=== PATIENT | male | born 1940 | race Caucasian/White ===

== ENCOUNTER 2023-05-14 14:28 | Outpatient (OUT) | payer MEDICARE, SELFPAY | END 2023-05-14 14:29 | disposition home or self-care (01) | LOC: WC 14:28 | PROVIDERS: PCP Physician Assistant; Visit Provider Physician Assistant | DX: L97.822 Non-pressure chronic ulcer of other part of left lower leg with fat layer exposed (principal); L97.812 Non-pressure chronic ulcer of other part of right lower leg with fat layer exposed; R60.0 Localized edema; R25.1 Tremor, unspecified; D64.9 Anemia, unspecified; I70.244 Atherosclerosis of native arteries of left leg with ulceration of heel and midfoot; I70.243 Atherosclerosis of native arteries of left leg with ulceration of ankle; Z99.81 Dependence on supplemental oxygen; F33.0 Major depressive disorder, recurrent, mild; E11.40 Type 2 diabetes mellitus with diabetic neuropathy, unspecified; E11.51 Type 2 diabetes mellitus with diabetic peripheral angiopathy without gangrene; I82.409 Acute embolism and thrombosis of unspecified deep veins of unspecified lower extremity; M21.40 Flat foot [pes planus] (acquired), unspecified foot; I51.9 Heart disease, unspecified; K46.9 Unspecified abdominal hernia without obstruction or gangrene; R32 Unspecified urinary incontinence; Z79.4 Long term (current) use of insulin; E46 Unspecified protein-calorie malnutrition; M86.68 Other chronic osteomyelitis, other site; I73.9 Peripheral vascular disease, unspecified; E11.42 Type 2 diabetes mellitus with diabetic polyneuropathy; N40.0 Benign prostatic hyperplasia without lower urinary tract symptoms; G25.81 Restless legs syndrome; G47.34 Idiopathic sleep related nonobstructive alveolar hypoventilation; L97.919 Non-pressure chronic ulcer of unspecified part of right lower leg with unspecified severity; I87.2 Venous insufficiency (chronic) (peripheral) | CPT/HCPCS: 29580 ==

== ENCOUNTER 2023-06-11 12:51 | Outpatient (OUT) | payer MEDICARE, SELFPAY | END 2023-06-11 12:52 | disposition home or self-care (01) | LOC: WC 12:51 | PROVIDERS: PCP Physician Assistant; Visit Provider Podiatrist Foot & Ankle Surgery | DX: L97.822 Non-pressure chronic ulcer of other part of left lower leg with fat layer exposed (principal); L97.812 Non-pressure chronic ulcer of other part of right lower leg with fat layer exposed | CPT/HCPCS: 29580 ==

== ENCOUNTER 2023-07-10 10:48 | Outpatient (OUT) | payer MEDICARE, SELFPAY | END 2023-07-10 10:49 | disposition home or self-care (01) | LOC: WC 10:48 | PROVIDERS: PCP Physician Assistant; Visit Provider Podiatrist Foot & Ankle Surgery | DX: L97.812 Non-pressure chronic ulcer of other part of right lower leg with fat layer exposed (principal); L97.822 Non-pressure chronic ulcer of other part of left lower leg with fat layer exposed; E11.40 Type 2 diabetes mellitus with diabetic neuropathy, unspecified; E11.51 Type 2 diabetes mellitus with diabetic peripheral angiopathy without gangrene; I82.409 Acute embolism and thrombosis of unspecified deep veins of unspecified lower extremity; I70.244 Atherosclerosis of native arteries of left leg with ulceration of heel and midfoot; I70.243 Atherosclerosis of native arteries of left leg with ulceration of ankle | CPT/HCPCS: 11042; 11045; 29580 ==

== ENCOUNTER 2023-07-30 13:40 | Outpatient (OUT) | payer MEDICARE, SELFPAY | END 2023-07-30 13:41 | disposition home or self-care (01) | LOC: WC 13:41 | PROVIDERS: PCP Physician Assistant; Visit Provider Physician Assistant | DX: L89.141 Pressure ulcer of left lower back, stage 1 (principal) | CPT/HCPCS: G0463 ==

== ENCOUNTER 2023-08-27 15:23 | Outpatient (OUT) | payer MEDICARE, SELFPAY | END 2023-08-27 15:24 | disposition home or self-care (01) | LOC: WC 15:24 | PROVIDERS: PCP Physician Assistant; Visit Provider Physician Assistant | DX: L97.822 Non-pressure chronic ulcer of other part of left lower leg with fat layer exposed (principal); L97.812 Non-pressure chronic ulcer of other part of right lower leg with fat layer exposed | CPT/HCPCS: 29580 ==

== ENCOUNTER 2023-10-01 15:09 | Outpatient (OUT) | payer MEDICARE, SELFPAY | END 2023-10-01 15:10 | disposition home or self-care (01) | LOC: WC 15:09 | PROVIDERS: PCP Physician Assistant; Visit Provider Podiatrist Foot & Ankle Surgery | DX: L97.822 Non-pressure chronic ulcer of other part of left lower leg with fat layer exposed (principal); L97.812 Non-pressure chronic ulcer of other part of right lower leg with fat layer exposed | CPT/HCPCS: 29580 ==

== ENCOUNTER 2023-11-06 13:28 | Outpatient (OUT) | payer MEDICARE, SELFPAY | END 2023-11-06 13:29 | disposition home or self-care (01) | LOC: WC 13:28 | PROVIDERS: PCP Physician Assistant; Visit Provider Physician Assistant | DX: L97.822 Non-pressure chronic ulcer of other part of left lower leg with fat layer exposed (principal); L97.812 Non-pressure chronic ulcer of other part of right lower leg with fat layer exposed | CPT/HCPCS: 29580 ==

== ENCOUNTER 2023-12-31 15:26 | Outpatient (OUT) | payer MEDICARE, SELFPAY | END 2023-12-31 15:27 | disposition home or self-care (01) | LOC: WC 15:26 | PROVIDERS: PCP Physician Assistant; Visit Provider Physician Assistant | DX: L97.812 Non-pressure chronic ulcer of other part of right lower leg with fat layer exposed (principal); L97.822 Non-pressure chronic ulcer of other part of left lower leg with fat layer exposed | CPT/HCPCS: 11042; 29580 ==

== ENCOUNTER 2024-01-28 13:18 | Outpatient (OUT) | payer MEDICARE, SELFPAY | END 2024-01-28 13:19 | disposition home or self-care (01) | LOC: WC 13:18 | PROVIDERS: PCP Physician Assistant; Visit Provider Physician Assistant | DX: L97.822 Non-pressure chronic ulcer of other part of left lower leg with fat layer exposed (principal); L97.812 Non-pressure chronic ulcer of other part of right lower leg with fat layer exposed; R60.0 Localized edema | CPT/HCPCS: 29580 ==

== ENCOUNTER 2024-03-17 15:46 | Outpatient (OUT) | payer MEDICARE, SELFPAY | END 2024-03-17 15:47 | disposition home or self-care (01) | LOC: WC 15:46 | PROVIDERS: PCP Physician Assistant; Visit Provider Physician Assistant | DX: L97.822 Non-pressure chronic ulcer of other part of left lower leg with fat layer exposed (principal); L97.812 Non-pressure chronic ulcer of other part of right lower leg with fat layer exposed | CPT/HCPCS: 29580 ==

== ENCOUNTER 2024-06-02 15:13 | Outpatient (OUT) | payer MEDICARE, SELFPAY | END 2024-06-02 15:14 | disposition home or self-care (01) | LOC: WC 15:13 | PROVIDERS: PCP Physician Assistant; Visit Provider Physician Assistant | DX: L97.822 Non-pressure chronic ulcer of other part of left lower leg with fat layer exposed (principal); L97.812 Non-pressure chronic ulcer of other part of right lower leg with fat layer exposed | CPT/HCPCS: 29580 ==

== ENCOUNTER 2025-04-22 13:39 | Observation (INO) | payer MEDICARE, SELFPAY ==
--- OUTSIDE RECORDS SUMMARY | 2012-03-28 12:00 | XMS_ITS | Encounter Summary ---
Author Organization [facility] Address [address] [place] [address] Care Team Providers Care Buffing Machine Tender Name Role Phone Unavailable Primary Care Provider Unavailabl e Encounter Details Date Type Department Care Team (Late st Contact Info) Description 03/28/2012 12:00 PM EDT Hospital Encounter [facility] Department [address] [place] [address] Canelo Esquivel MD [address] [place], [place] [id number] Social History Tobacco Use Types Packs/Day Years Used Date Smoking Tobacco: Never Alcohol Use Standard Drinks/Week Comments No 0 (1 standard drink = 0.6 oz pur e alcohol) Sex and Gender Information Value Date Recorded Sex Assigned at Not on file Legal Sex Male 9:38 AM EST Gender Identity Not on file Sexual Orientation Not on file COVID-19 Exposure Response Date Recorded In the last month, have you been in contact with someone who was confirmed or suspected to have Coronavirus / COVID-19? No / Unsure 06/23/2021 11:17 PM EDT documented as of this encounter Plan of Treatment Not on file documented as of this encounter Visit Diagnoses Not on filedocumented in this encounter
--- OUTSIDE RECORDS SUMMARY | 2015-07-06 13:09 | XMS_ITS | Encounter Summary ---
Author Organization [facility] Address [address] [place] [address] Care Team Providers Care Business Asst Name Role Phone Oxana Martinez MD Primary Care Provider [phone] Encounter Details Date Type Department Care Team (Late st Contact Info) Description 07/06/2015 1:09 PM EDT Hospital Encounter [facility] [address] [place], [place] [id number] Panda Rooney MD [facility] [address] [address] Social History Tobacco Use Types Packs/Day Years [...] on file documented as of this encounter Procedures Procedure Name Priority Date/Time Associated Diagnosis Comments VL TCPO2 MULTIPLE SITES Routine 07/06/2015 3:45 PM EDT VL LOWER EXTREMITY ARTERIAL SEGMENTAL PRESSURES W PPG Routine 07/06/2015 2:22 PM EDT documented in this encounter Results * VL TCPO2 Multiple Sites (07/06/2015 3:45 PM EDT) Anatomical Region Laterality Modality Other 07/06/2015 3:45 PM EDT Narrative 07/08/2015 11:40 AM EDT [facility] TCPO2 Multiple Sites Procedure Patient Name RILEY MCKINNEY Date of Study 07/06/2015 Date of 1940 Gender Male Age 74 year(s) Race Room Number OP Corporate ID # [id number] Patient MR # [id number] Forestry Pilot Tom Mcfarland Interpreting Physician Tyler Brandon Referring Nurse Referring Physician PANDA ROONEY, Practitioner Procedure Type of Study: Miscellaneous: TCPO2 Multiple Sites. Risk Factors - The patient's risk factor(s) include: diabetes mellitus, dyslipidemia and arterial hypertension. Allergies - Allergy:Latex(Miscellaneous). - Allergy:Contrast(Miscellaneous). - Allergy:*Unlisted(Drug). Comments:Keflex, Daypro, Decadron, Polymox Patient Status:In Patient. Miscellaneous Right Measurements Electrode A: 59 mmHg placed at chest . Electrode B: 87 mmHg placed at top of right foot . Electrode C: 53 mmHg placed at rt medial malleolus area . Electrode D: 33 mmHg placed at medial lower right leg . Left Measurements Electrode E: 55 mmHg placed at top of the left foot . Electrode F: 68 mmHg placed at near medial malleolus . Conclusions Summary All measurements show adequate tissue perfusion for healing. Signature Procedure Note Tyler Brandon MD - 07/08/2015 [facility] TCPO2 Multiple Sites Procedure Patient Name RILEY MCKINNEY Date of Study 07/06/2015 Date of 1940 Gender Male Age 74 year(s) Race Room Number OP Corporate ID # [id number] Patient MR # [id number] Forestry Pilot Brian Interpreting Physician Tyler Brandon Referring Nurse Referring Physician PANDA SHEFFIELD, Practitioner Procedure Type of Study: Miscellaneous: TCPO2 Multiple Sites. Risk Factors - The patient's risk factor(s) include: diabetes mellitus,dyslipidemia and arterial hypertension. Allergies - Allergy:Latex(Miscellaneous). - Allergy:Contrast(Miscellaneous). - Allergy:*Unlisted(Drug). Comments:Keflex, Daypro, Decadron, Polymox Patient Status:In Patient. Miscellaneous Right Measurements Electrode A: 59 mmHg placed at chest . Electrode B: 87 mmHg placed at top of right foot . Electrode C: 53 mmHg placed at rt medial malleolus area . Electrode D: 33 mmHg placed at medial lower right leg . Left Measurements Electrode E: 55 mmHg placed at top of the left foot . Electrode F: 68 mmHg placed at near medial malleolus . Conclusions Summary All measurements show adequate tissue perfusion for healing. Signature us Panda Rooney MD IMG VASCULAR ORDERABLES Sarah l Result * VL Arterial PVR Lower w PPG (07/06/2015 2:22 PM EDT) Anatomical Region Laterality Modality Vascular Other 07/06/2015 2:22 PM EDT Narrative 07/07/2015 10:37 AM EDT [facility] Lower Arterial Plethysmography Procedure Patient Name RILEY MCKINNEY Date of Study 07/06/2015 Date of 1940 Gender Male Age 74 year(s) Race Room Number OP Corporate ID # [id number] Patient MR # [id number] [employer] Pilot Tom Mcfarland Interpreting Physician Tyler Brandon Referring Nurse Referring Physician Toribio Ferreira Practitioner Procedure Type of Study: Extremities Arteries: Lower Arterial Plethysmography, PVR Lower with PPG. Indications for Study:Venous ulcer. Risk Factors - The patient's risk factor(s) include: diabetes mellitus, dyslipidemia and arterial hypertension. Allergies - Allergy:Latex(Miscellaneous). - Allergy:Contrast(Miscellaneous). - Allergy:*Unlisted(Drug). Comments:Keflex, Daypro, Decadron, Polymox Patient Status:Out Patient. Velocities are measured in cm/s ; Diameters are measured in mm Pressures Right Left + + + + + + + + !Location ! !Pressure !Ratio ! !Pressure !Ratio ! + + + + + + + + !Thigh ! !197 !1.36 ! !220 !1.52 ! + + + + + + + + !Calf ! !201 !1.39 ! !254 !1.75 ! + + + + + + + + !Ankle PT ! !254 !175 ! !254 !1.75 ! + + + + + + + + !Ankle DP ! !199 !1.37 ! !254 !1.75 ! + + + + + + + + !Great Toe ! !208 !1.43 ! !216 !1.49 ! + + + + + + + + - Brachial Pressure:Right: 145 mmHg - NISSA:Right: 1.75.Left: 1.75. Plethysmographic Digit Evaluation Right Left + + +--------+-----+ + +--------+-----+ + !Location ! !Pressure!Ratio!PPG Wave Form ! !Pressure!Ratio!PPG Wave Form ! + + +--------+-----+ + +--------+-----+ + !Great Toe ! !208 !1.43 ! ! !216 !1.49 ! ! 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 Normal arterial PPG waveforms of the bilateral digits. Signature Procedure Note Tyler Brandon MD - 07/07/2015 [facility] Lower Arterial Plethysmography Procedure Patient Name RILEY MCKINNEY Date of Study 07/06/2015 Date of 1940 Gender Male Age 74 year(s) Race Room Number OP Corporate ID # [id number] Patient MR # [id number] Forestry Pilot MiriamIssacAbelardoKielvee Interpreting Physician Tyler Brandon Referring Nurse Referring Physician Toribio Ferreira Practitioner Procedure Type of Study: Extremities Arteries: Lower Arterial Plethysmography, PVR Lower withPPG. Indications for Study:Venous ulcer. Risk Factors - The patient's risk factor(s) include: diabetes mellitus,dyslipidemia and arterial hypertension. Allergies - Allergy:Latex(Miscellaneous). - Allergy:Contrast(Miscellaneous). - Allergy:*Unlisted(Drug). Comments:Keflex, Daypro, Decadron, Polymox Patient Status:Out Patient. Velocities are measured in cm/s ; Diameters are measured in mm Pressures Right Left + + + + + + + + !Location !!Pressure !Ratio ! !Pressure!Ratio ! + + + + + + + + !Thigh ! !197 !1.36 ! !220 !1.52 ! + + + + + + + + !Calf ! !201 !1.39 ! !254 !1.75 ! + + + + + + + + !Ankle PT ! !254 !1.75 ! !254 !1.75 ! + + + + + + + + !Ankle DP ! !199 !1.37 ! !254 !1.75 ! + + + + + + + + !Great Toe ! !208 !1.43 ! !216 !1.49 ! + + + + + + + + - Brachial Pressure:Right: 145 mmHg - NISSA:Right: 1.75.Left: 1.75. Plethysmographic Digit Evaluation Right Left + + +--------+-----+ + +--------+-----+ + !Location !!Pressure!Ratio!PPG Wave Form ! !Pressure!Ratio!PPG Wave Form ! + + +--------+-----+ + +--------+-----+ + !Great Toe ! !208!1.43 ! ! !216 !1.49 ! ! 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 Normal arterial PPG waveforms of the bilateral digits. Signature us Panda Rooney MD IMG VASCULAR ORDERABLES Sarah reddy Result documented in this encounter Visit Diagnoses Not on filedocumented in this encounter Care Teams Business Asst Relationship Specialty Start Date End Date Wonderly, Oxana Ge MD PCP - General 10/22/14 documented as of this encounter
--- OUTSIDE RECORDS SUMMARY | 2025-04-19 15:19 | XMS_ITS | Encounter Summary ---
Author Organization [employer] tem Address [id number] [address] [place] [address] Care Team Providers Care Scientific Technical Writer Name Role Phone Carla Gaines [facility] Family Medicine Primary Care Provider Reason for Visit * Reason Comments Shortness of Breath Pt sent in by family for increasing SOB over the past 3 days. Pt usually on 2l/nc now on 4l. Encounter Details Date Type Department Care Team (Late st Contact Info) Description 04/19/2025 3:19 PM EDT - 04/19/2025 7:01 PM EDT Emergency [facility] - Emergency [address] [place] [id number] Isaías Ireland MD [address] [facility] [address] [place] [address] Prolonged Q-T interval on ECG (Primary Dx); Dyspnea, unspecified type Discharge Disposition: Home Social History Tobacco Use Types Packs/Day Years Used Date Smoking Tobacco: Never Smokeless Tobacco: Never Alcohol Use Standard Drinks/Week Comments No 0 (1 standard drink = 0.6 oz pur e alcohol) PHQ-2 Answer Date Recorded Total Score 0 12/16/2020 Housing Instability Answer Date Recorde d Are you worried or concerned that in the next two months you may not have stable housing that you own, rent or stay in as a part of a household? No 02/21/2023 Childcare Answer Date Recorded Do problems getting child ca re make it difficult for you to work or study? No 12/16/2020 Employment Answer Date Recorded Do you need help finding a [facility] career center and/or a training program? No 12/16/2020 Hunger Screening Answer Date Recorded Within the past 12 months we worried whether our food would run out before we got money to buy more. Never True 04/19/2025 Within the past 12 months th e food we bought just didn't last and we didn't have money to get more. Never True 04/19/2025 Purpose - Life Answer Date Recorded I have a purpose and direction in my life. Stron gly Agree 12/16/2020 Sex and Gender Information Value Date Recorded Sex Assigned at Not on file Legal Sex Male 11:21 AM EDT Gender Identity Not on file Sexual Orientation Not on file documented as of this encounter Last Filed Vital Signs Vital Sign Reading Time Taken Comments Blood Pressure 115/78 04/19/2025 3:55 PM EDT Pulse 96 04/19/2025 6:40 PM EDT Temperature 36.7 C (98.1 F) 04/19/2025 3:22 PM EDT Respiratory Rate 17 04/19/2025 6:40 PM EDT Oxygen Saturation 98% 04/19/2025 6:40 PM EDT Inhaled Oxygen Concentration - - Weight 72.6 kg (160 lb) 04/19/2025 3:22 PM EDT Height 177.8 cm (5' 10 ) 04/19/2025 3:22 PM EDT Body Mass Index 22.96 04/19/2025 3:22 PM EDT documented in this encounter Discharge Instructions * Attachments The following attachments cannot be sent through Care Everywhere. * Shortness of breath in adults ??? ED discharge instructions (Bermudian) documented in this encounter Medications at Time of Discharge acetaminophen (TYLENOL EXTRA STRENGTH) 500 mg tablet Take 2 tablets (1,000 mg total) by mouth every 6 (six) hours as needed for pain. albuterol (PROVENTIL,GAMA ZABRINA) 2.5 mg /3 mL (0.083 %) nebulizer solution Inhale 3 mL (2.5 mg total) by nebulization every 6 (six) hours. ascorbic acid, vitamin C, (VITAMIN C) 1000 mg tablet Take 1 tablet (1,000 mg total) by mouth in the morning. 30 tablet 06/26/2022 aspirin 81 mg Take 1 tablet (81 mg total) by mouth in the morning. 30 tablet 06/26/2022 atorvastatin (LIPITOR) 20 mg tablet Take 1 tablet (20 mg total) by mouth nightly. 30 tablet 06/26/2022 bisacodyL (DULCOLAX) 10 mg suppository Insert 1 suppository (10 mg total) into the rectum daily as needed for constipation. budesonide-formo teroL (SYMBICORT) 160-4.5 mcg/actuation inhaler Inhale 2 puffs in the morning and 2 puffs before bedtime. calcium carbonate-vitami n D3 (OSCAL 500 + D) 500 mg(1,250mg) -200 units per tablet Take 1 tablet by mouth in the morning and 1 tablet in the evening. Take with meals. celecoxib (CeleBREX) 100 mg capsule Take 1 capsule (100 mg total) by mouth in the morning. 30 capsule 06/26/2022 cholecalciferol (VITAMIN D3) 1,000 units tablet Take 1,000 Units by mouth daily. coenzyme Q10 100 mg capsule Take 200 mg by mouth daily. docusate sodium (COLACE) 100 mg capsule Take 2 capsules (200 mg total) by mouth in the morning and 2 capsules (200 mg total) before bedtime. donepeziL (ARICEPT) 5 mg tablet Take 1 tablet (5 mg total) by mouth nightly. 30 tablet 06/26/2022 ezetimibe (ZETIA) 10 mg tablet Take 1 tablet (10 mg total) by mouth in the morning. ferrous sulfate 325 (65 FE) mg tablet Take 1 tablet (325 mg total) by mouth daily with breakfast. 30 tablet 06/26/2022 fluticasone propionate (FLONASE) 50 mcg/actuation nasal spray Administer 1 spray into each nostril daily. furosemide (LASIX) 40 mg tablet Take 1 tablet (40 mg total) by mouth daily. 30 tablet 06/26/2022 gabapentin (NEURONTIN) 100 mg capsule Take 1 capsule (100 mg total) by mouth 3 (three) times a day. glucosamine/D3/b oswellia onur (OSTEO BI-FLEX, 5-LOXIN, ORAL) Take 1 tablet by mouth daily. insulin lispro (HumaLOG) 100 unit/mL injection Inject as per sliding scale: if 150 - 200 = 2 units; 201 - 250 = 4 units; 251 - 300 = 6 units; 301 - 350 = 8 units; 351 - 400 = 10 units >400 call MD, subcutaneously before meals related to TYPE 2 DIABETES MAYA insulin lispro (HumaLOG) 100 unit/mL insulin pen Inject 2-10 Units under the skin in the morning and 2-10 Units at noon and 2-10 Units in the evening. Inject with meals. 15 mL 06/01/2022 insulin lispro (HumaLOG) 100 unit/mL insulin pen Inject 2-8 Units under the skin nightly. 15 mL 06/01/2022 magnesium hydroxide (MILK OF MAGNESIA) 400 mg/5 mL suspension Take 30 mL by mouth daily as needed. magnesium oxide (MAG-OX) 400 mg tablet Take 1 tablet (400 mg total) by mouth in the morning and 1 tablet (400 mg total) before bedtime. menthol-zinc oxide (CALMOSEPTINE) 0.44-20.6 % ointmentIndicati ons:skin irritation Apply 1 Application topically 2 (two) times a day as needed (may substitute with Desitin/ OTC Zinc oxide preparations) Indications: skin irritation. 71 g 02/26/2023 miscellaneous medical supply miscIndications: Wound healing, delayed Aquacel AG cut to fit wound bed, change daily 30 each 3 01/30/2018 montelukast (SINGULAIR) 10 mg tablet Take 1 tablet (10 mg total) by mouth in the morning. 30 tablet 06/26/2022 [id number]-XV- lycopen-lutein 300-600-300 mcg tablet Take 1 tablet by mouth daily. Centrum silver 50+ mens nitroglycerin (NITROSTAT) 0.[address] 1 tablet (0.4 mg total) under the tongue every 5 (five) minutes as needed for chest pain. OMEGA-3 ACID ETHYL ESTERS (LOVAZA ORAL) Take 1 g by mouth daily. ondansetron (ZOFRAN) 4 mg tablet Take 1 tablet (4 mg total) by mouth every 8 (eight) hours as needed for nausea or vomiting. oxyCODONE (ROXICODONE) 5 mg immediate release tablet Take 1 tablet (5 mg total) by mouth every 6 (six) hours. Max Daily Amount: 20 mg pantoprazole (PROTONIX) 40 mg EC tablet Take 1 tablet (40 mg total) by mouth in the morning and 1 tablet (40 mg total) before bedtime. 30 tablet 06/26/2022 polyethylene glycol (GLYCOLAX) 17 gram packet Take 17 g by mouth in the morning and 17 g before bedtime. rOPINIRole (REQUIP) 1 mg tablet Take 1 tablet (1 mg total) by mouth in the morning and 1 tablet (1 mg total) before bedtime. 60 tablet 06/26/2022 senna (SENOKOT) 8.6 mg tablet Take 1 tablet (8.6 mg total) by mouth in the morning. 30 tablet 03/14/2022 sertraline (ZOLOFT) 25 mg tablet Take 2 tablets (50 mg total) by mouth once daily at bedtime. 30 tablet 06/26/2022 sodium chlor-hypochloro us acid (VASHE WOUND THERAPY) 0.033 % irrigation solution irrigation solution Irrigate with 1 application. as directed once. Apply to bilateral leg wounds every other day sodium chloride 0.9 % injection Infuse 3 mL into a venous catheter as needed for line care (before and after each intermittent use). 5 mL 15 02/26/2023 sucralfate (CARAFATE) 1 gram tablet Take 1 tablet (1 g total) by mouth in the morning and 1 tablet (1 g total) at noon and 1 tablet (1 g total) in the evening and 1 tablet (1 g total) before bedtime. tamsulosin (FLOMAX) 0.4 mg capsule Take 1 capsule (0.4 mg total) by mouth nightly. tiZANidine (ZANAFLEX) 4 mg tablet Take 1 tablet (4 mg total) by mouth every 6 (six) hours as needed for muscle spasms. zinc gluconate 50 mg tablet Take 50 mg by mouth daily. zinc oxide 4 X 10 -yard bandage Apply 1 each topically every 7 days. Apply 1 to left lower and 1 to right lower extremities every 7 days 12 each 1 02/26/2023 documented as of this encounter ED Notes * Isaías Ireland MD - 04/19/2025 3:28 PM EDT Images from the original note were not included. [facility] EM[facility]GENC[facility] Pt Name: Toi Cowart Birthdate: 1940 Chief Complaint: Chief Complaint Patient presents with Shortness of Breath Pt sent in by family for increasing SOB over the past 3 days. Pt usually on 2l/nc now on 4l. History of Present Illness: Initial evaluation performed at 3:[address] Ireland. Patient is a 84 y.o. Male who presents to the ED via EMS for evaluation of Shortness of Breath. Patient is experiencing shortness of breath. Family came in to the room and explained patient was having shortness of breath past three days and also is having some pain. Family member states patientwas complaining of pain on his gluteus. Patient is not remembering much but does state he has no chest pain. Patient lives at home with a niece. Family member states patient has a history of hernias. History provided by: Relative and patient shaker repairer used: No Past Medical History: Past Medical History: Diagnosis Date Anemia Calculus of gallbladder Cardiomegaly Carpal tunnel syndrome 01/29/2018 Cataract Congenital anomaly of spleen COPD (chronic obstructive pulmonary disease) ([place]) Depression Diabetes mellitus type 2, controlled ([place]) Diverticulitis of small intestine GERD (gastroesophageal reflux disease) Goiter 01/29/2018 Hernia of abdominal cavity HL (hearing loss) Hyperlipidemia 01/29/2018 Hypertension Internal hemorrhoid Macular degeneration (senile) of retina Obesity 01/29/2018 Osteoarthrosis Peripheral vascular disease Pulmonary fibrosis ([place]) Restless leg syndrome 01/29/2018 Sleep apnea Thoracic and lumbosacral neuritis Visual impairment Past Surgical History: Past Surgical History: Procedure Laterality Date CARDIAC CATHETERIZATION CHOLECYSTECTOMY COLONOSCOPY EGD Left 11/14/2021 Performed by Fernanda Lizama MD at [facility] MOUTH SURGERY SPLENECTOMY TONSILLECTOMY UMBILICAL HERNIA REPAIR Family History: Family History Problem Relation Age of Onset No Known Problems Mother No Known Problems Father Social History: Social History Socioeconomic History Marital status: Tobacco Use Smoking status: Never Smokeless tobacco: Never Substance and Sexual Activity Alcohol use: No Drug use: No Sexual activity: Not Currently Other Topics Concern Caffeine Use Yes Social Drivers of Health Food Insecurity: No Food Insecurity (04/19/2025) Hunger Screening Food Insecurity - Worry: Never True Food Insecurity - Inability: Never True Received from [facility] Housing Instability: Low Risk (02/21/2023) Housing Instability Housing Instability: No Review of Systems: Review of Systems Physical Exam: ED Triage Vitals [04/19/25 1522] Temp Heart Rate Resp BP SpO2 36.7 ??C (98.1 ??F) 90 22 117/85 97 % Temp src Heart Rate Source Patient Position BP Location FiO2 (%) -- -- -- Left arm -- Vitals: 04/19/25 1730 04/19/25 1740 04/19/25 1750 04/19/25 1754 BP: Temp: Pulse: 93 84 103 Resp: 17 18 12 SpO2: 99% 99% 100% 94% MAP (mmHg): Height: Weight: Physical Exam Vitals and nursing note reviewed. Constitutional: General: He is not in acute distress. Appearance: He is ill-appearing (chronically). He is not toxic-appearing or diaphoretic. HENT: Head: Normocephalic and atraumatic. Eyes: Conjunctiva/sclera: Conjunctivae normal. Neck: Vascular: No JVD. Cardiovascular: Rate and Rhythm: Normal rate and regular rhythm. Pulmonary: Effort: Pulmonary effort is normal. Breath sounds: Examination of the right-lower field reveals decreased breath sounds and rales. Examination of the left-lower field reveals decreased breath sounds and rales. Decreased breath sounds and rales present. No wheezing or rhonchi. Abdominal: General: Abdomen is flat. There is no distension. Palpations: Abdomen is soft. Tenderness: There is no abdominal tenderness. There is no guarding or rebound. Hernia: A hernia is present. Hernia is present in the ventral area. Musculoskeletal: General: Normal range of motion. Cervical back: Normal range of motion and neck supple. Right lower leg: No tenderness. No edema. Left lower leg: No tenderness. No edema. Skin: General: Skin is warm and dry. Capillary Refill: Capillary refill takes less than 2 seconds. Findings: Wound (multiple stage 1/2 sacral pressure ulcer) present. Neurological: General: No focal deficit present. Mental Status: He is alert and oriented to person, place, and time. GCS: GCS eye subscore is 4. GCS verbal subscore is 5. GCS motor subscore is 6. Procedure: Procedures Re-evaluation: I, Stephanie Delgadillo ([facility]), documented on behalf and in the presence of Dr. Lolis Ireland. 5:04 PM Pt was evaluated by Dr. Laird. He is resting comfortably and the family would like the pt to go home following his workup. Pt caregivers are nurses and will be able to provide adequate care. 6:02 PM Based on stable troponin results and symptom improvement, pt will be discharged and does not require admission. Pt is agreeable with plan of care. Medical Decision Making Patient on baseline oxygen requirements (2 L/min). He does not know why he is here, at baseline hassome cognitive decline it seems, as seen in previous ED note as well. He states that he does not remember if he was experiencing SOB or any pain but currently is not. He has chronic lower extremity wounds that are wrapped, chronic sacral decubitus ulcers that are stage 1/2. He has some bibasilar crackles, no overt fluid overload otherwise. His family member is at bedside and states that he doesn't move too much when questioned how he ambulates (by the way of walker, cane, etc.) Recommendations for cardiopulmonary workup. Will trial dose of Lasix here, it is on his home medication list. I reviewed echocardiogram from 2020 with a normal ejection fraction Patient signed out to Dr. Laird at regularly scheduled shift change.. Amount and/or Complexity of Data Reviewed External Data Reviewed: radiology. Details: Echocardiogram 11/15/2021: ?? Left Ventricle: Systolic function is normal with an ejection fraction of 55-60%. ?? Right Ventricle: Systolic function is normal. ?? Tricuspid Valve: The right ventricular systolic pressure normal. RVSP calculated at 27 mmHg. RVSP is based on RA pressure of 3 mmHg. ?? Mitral Valve: There is mild regurgitation with a posteriorly directed jet. Labs: ordered. Details: Labs notable for: initial troponin normal at 7. Second troponin normal at 6. Radiology: ordered and independent interpretation performed. Details: Imaging was independently viewed and is notable for unremarkable results. ECG/medicine tests: ordered and independent interpretation performed. Details: Sinus rhythm, right bundle-branch block redemonstrated, no evidence of acute ischemia by the way of ST segment depression or elevation. Prolonged QTc. Risk Prescription drug management. ED Course: Clinical Impressions as of 04/19/25 1803 Prolonged Q-T interval on ECG Dyspnea, unspecified type Transfer of Care: Pearl Falk([facility]), documented on behalf and in the presence of Dr. Cristine Laird. 04/19/2025 3:[address] Cristine Laird accepted sign out from Dr. Kike Ireland. Patient is pending labs and imaging. Additional Notes/Findings for Transfer of Care 3:56 PM Pearl Falk ([facility]) accept this note at normal shift change. ED Disposition ED Disposition Discharge Date/Time [place] Apr 19, 2025 5:21 PM Comment At the time of discharge, the plan has been discussed with the patient regarding the diagnosis and prognosis. All questions have been answered. Verbal discharge instructions were discussed with the patient. The patient has been advised to follow up w ith their Primary Care Provider within 1 week. The patient was also instructed to return to the ED if their symptoms change, worsen, new symptoms arise or if they have any additional concerns. Shared/Split Visit 16:57 EDT Pearl Falk ([facility]), scribed for and in the presence of: Dr. Cristine Laird who performed the above service. IDr. Cristine personally performed a [id number] diagnostic evaluation on this patient. I personally made and approved the management plan for this patient and take responsibility for the patientmanagement. Additional Notes/Findings: Toi Cowart is a 84 y.o. M presenting to the ED for chief complaint of SOB. Please note that portions of this note were completed with a voice recognition program. Efforts were made to edit the dictations but occasionally words are mis-transcribed. Stephanie Delgadillo 04/19/25 1545 Isaías Ireland MD 04/19/25 1552 Pearl Hurley 04/19/25 1557 Pearl Hurley 04/19/25 1658 Pearl Hurley 04/19/25 1706 Pearlkristie Hurley 04/19/25 1738 Pearl Hurley 04/19/25 1748 Pearl Hurley 04/19/25 1803 Isaías Ireland MD 04/20/25 1520 documented in this encounter Plan of Treatment Not on file documented as of this encounter Goals Goal Patient Goal Type Associated Problems Recent Progress Patient-Stated? Author <enter goal here> General Yes Barbara Hodges, CLOTH DYER Note: Evaluation of progress towards goal: SNF documented as of this encounter Procedures Procedure Name Priority Date/Time Associated Diagnosis Comments TROP I, HIGH SENSITIVITY 1 HOUR STAT 04/19/2025 5:13 PM EDT XR CHEST 2 VWS STAT 04/19/2025 4:08 PM EDT TROPONIN I, HIGH SENSITIVITY 0 HOUR STAT 04/19/2025 4:07 PM EDT EXTRA TUBES BLUE TOP Routine 04/19/2025 4:07 PM EDT TROPONIN I, HIGH SENSITIVITY 0 HOUR STAT 04/19/2025 4:07 PM EDT EXTRA TUBES Routine 04/19/2025 4:07 PM EDT CBC WITH AUTO DIFFERENTIAL STAT 04/19/2025 4:07 PM EDT B-TYPE NATRIURETIC PEPTIDE STAT 04/19/2025 4:07 PM EDT BASIC METABOLIC PANEL STAT 04/19/2025 4:07 PM EDT SARS/FLU A+B/RSV BY NAAT/MOLECULAR (M4RT COLLECTION TUBE) STAT 04/19/2025 3:50 PM EDT ECG 12-LEAD STAT 04/19/2025 3:24 PM EDT documented in this encounter Results * Troponin I, High Sensitivity 1 Hour (04/19/2025 5:13 PM EDT) TROPONIN I, HIGH SENSITIVITY 6 <21 ng/L 04/19/2025 5:53 PM EDT [facility] Blood Venous blood / Unknown 04/19/2025 5:13 PM EDT 04/19/2025 5:21 PM EDT us Isaías Ireland MD LAB BLOOD ORDERABLES Final Resu lt [facility] [address] [place] [address], [place] * X-ray chest 2 views (04/19/2025 4:08 PM EDT) Anatomical Region Laterality Modality Body, Chest N/A Computed Radiogr aphy 04/19/2025 4:17 PM EDT Narrative 04/19/2025 4:19 PM EDT XR CHEST 2 VWS INDICATION: sob COMPARISON: 03/19/2025 FINDINGS: Median sternotomy. Stable cardiomediastinal silhouette. Small left effusion/atelectasis, new from prior. Worsening perihilar edema. No pneumothorax. Advanced degenerative changes of the shoulders and spine. Presumed remote right rib and left clavicle fractures. IMPRESSION: Interstitial edema with emerging left effusion/atelectasis. Underlying pneumonia not excluded . Finalized by Christian Billingsley MD on 04/19/2025 4:19 PM Procedure Note Christian Billingsley MD - 04/19/2025 XR CHEST 2 VWS INDICATION: sob COMPARISON: 03/19/2025 FINDINGS: Median sternotomy. Stable cardiomediastinal silhouette. Small lefteffusion/atelectasis, new from prior. Worsening perihilar edema. Nopneumothorax. Advanced degenerative changes of the shoulders and spine.Presumed remote right rib and left clavicle fractures. IMPRESSION: Interstitial edema with emerging left effusion/atelectasis. Underlyingpneumonia not excluded . Finalized by Christian Billingsley MD on 04/19/2025 4:19 PM us Isaías Ireland MD IMG DIAGNOSTIC IMAGING ORDERABL ES Final Result * Light Blue Top (04/19/2025 4:07 PM EDT) Extra Tube Auto Resulted 04/19/2025 6:02 PM EDT [facility] Blood Venous blood / Unknown 04/19/2025 4:07 PM EDT 04/19/2025 4:33 PM EDT us Isaías Ireland MD LAB BLOOD ORDERABLES Final Resu lt Performing Organization Address City/[facility]/ZIP Co de Phone Number [address] [place] [address], [place] * Troponin I, High Sensitivity 0 Hour (04/19/2025 4:07 PM EDT) TROPONIN I, HIGH SENSITIVITY 7 <21 ng/L 04/19/2025 5:07 PM EDT [facility] Blood Venous blood / Unknown 04/19/2025 4:07 PM EDT 04/19/2025 4:32 PM EDT us Isaías Ireland MD LAB BLOOD ORDERABLES Final Resu lt Performing Organization Address [facility]/ZIP Co de Phone Number [address] [place] [address], [place] * B-type natriuretic peptide (04/19/2025 4:07 PM EDT) BNP 27 <=100 pg/mL 04/19/2025 5:12 PM EDT [facility] Blood Venous blood / Unknown 04/19/2025 4:07 PM EDT 04/19/2025 4:32 PM EDT us Isaías Ireland MD LAB BLOOD ORDERABLES Final Resu lt Performing Organization Address City/[facility]/ZIP Co de Phone Number [address] [place] [address], [place] * (ABNORMAL) Basic Metabolic Panel (04/19/2025 4:07 PM EDT) SODIUM 138 134 - 146 mmol/L 04/19/2025 4:55 PM EDT [facility] POTASSIUM 3.7 3.5 - 5.0 mmol/L 04/19/2025 4:55 PM EDT [facility] CHLORIDE 93(L) 98 - 109 mmol/L 04/19/2025 4:55 PM EDT [facility] CARBON DIOXIDE 33(H) 22 - 32 mmol/L 04/19/2025 4:55 PM EDT [facility] ANION GAP 12 5 - 15 mmol/L 04/19/2025 4:55 PM EDT [facility] BLOOD UREA NITROGEN 19 5 - 27 mg/dL 04/19/2025 4:55 PM EDT [facility] CREATININE 0.97 0.70 - 1.20 mg/dL 04/19/2025 4:55 PM EDT [facility] Comment:METHOD TRACEABLE TO IDMS STANDARD GLUCOSE 131(H) 65 - 99 mg/dL 04/19/2025 4:55 PM EDT [facility] CALCIUM 9.0 8.5 - 10.5 mg/dL 04/19/2025 4:55 PM EDT [facility] EGFR Non-Race Dependent 78 >=60 ml/min/1.7 3sq.m 04/19/2025 4:55 PM EDT [facility] Comment: eGFR not reported due to non-numeric value for Creatinine. Reported eGFR is based on the CKD-EPI 2020 equation that does not use a race coefficient. Blood Venous blood / Unknown 04/19/2025 4:07 PM EDT 04/19/2025 4:32 PM EDT us Isaías Ireland MD LAB BLOOD ORDERABLES Final Resu lt [facility] [address] [place] [address], * (ABNORMAL) CBC auto differential (04/19/2025 4:07 PM EDT) WBC 11.5(H) 4 - 11 x10E9/L 04/19/2025 4:41 PM EDT [facility] RBC Count 4.92 4.1 - 5.7 X10E12/L 04/19/2025 4:41 PM EDT [facility] Hemoglobin 14.4 13 - 17 g/dL 04/19/2025 4:41 PM EDT [facility] Hematocrit 44.6 39 - 50 % 04/19/2025 4:41 PM EDT [facility] MCV 91 80 - 100 fL 04/19/2025 4:41 PM EDT [facility] MCH 29.3 27 - 34 pg 04/19/2025 4:41 PM EDT [facility] MCHC 32.3 32 - 36 g/dL 04/19/2025 4:41 PM EDT [facility] RDW 18.5(H) 11.5 - 15 % 04/19/2025 4:41 PM EDT [facility] Platelet Count 504(H) 150 - 450 X10E9/L 04/19/2025 4:41 PM EDT [facility] MPV 8.7 7 - 12 fL 04/19/2025 4:41 PM EDT [facility] Neutrophils Relative 61.3 % 04/19/2025 4:41 PM EDT [facility] Lymphocytes Relative 30.6 % 04/19/2025 4:41 PM EDT [facility] Monocytes Relative 7.3 % 04/19/2025 4:41 PM EDT [facility] Eosinophils Relative 0.4 % 04/19/2025 4:41 PM EDT [facility] Basophils Relative 0.4 % 04/19/2025 4:41 PM EDT [facility] Neutrophils Absolute (A) 7.1(H) 1.5 - 6.6 10*3/uL 04/19/2025 4:41 PM EDT [facility] Lymphocytes Absolute 3.5 1.0 - 3.5 10*3/uL 04/19/2025 4:41 PM EDT [facility] Monocytes Absolute 0.8 0.0 - 0.9 10*3/uL 04/19/2025 4:41 PM EDT [facility] Eosinophils Absolute 0.0 0.0 - 0.4 10*3/uL 04/19/2025 4:41 PM EDT [facility] Basophils Absolute 0.0 0.0 - 0.2 10*3/uL 04/19/2025 4:41 PM EDT [facility] Differential Type AUTOMATED DIFFERENTIAL 04/19/2025 4:41 PM EDT [facility] Blood Venous blood / Unknown 04/19/2025 4:07 PM EDT 04/19/2025 4:32 PM EDT us Isaías Ireland MD LAB BLOOD ORDERABLES Final Resu lt [facility] [address] [facility] [place] [address], * SARS/FLU A+B/RSV by NAAT/Molecular (M4RT Collection Tube) (04/19/2025 3:50 PM EDT) Pathologist [facility] FLU A PCR Negative Negative 04/19/2025 5:12 PM EDT [facility] FLU B PCR Negative Negative 04/19/2025 5:12 PM EDT [facility] RSV BY PCR Negative Negative 04/19/2025 5:12 PM EDT [facility] SARS COV 2 BY PCR Not Detected Not Detected 04/19/2025 5:12 PM EDT [facility] Swab Nasopharyngeal structure / Unknown 04/19/2025 3:50 PM EDT 04/19/2025 4:34 PM EDT Narrative [facility] - 04/19/2025 5:12 PM EDT The Xpert Xpress SARS-CoV-2/Flu/RSV Plus test is a rapid, multiplexed real-time RT-PCR test intended for the simultaneous qualitative detection and differentiation of SARS-CoV-2, influenza A, influenza B and respiratory syncytial virus (RSV) viral RNA from individuals suspected of respiratory viral infection consistent with COVID-19 by Their healthcare provider. This test has not been validated in asymptomatic patients. The Xpert Xpress SARS-CoV-2 test is intended for use by qualified and trained operators who are performing tests using either Texxi DX or Tagrule systems and is limited to laboratories that meet the CLIA requirements to perform high and moderate complexity tests. The Xpert Xpress SARS-CoV-2/Flu/RSV Plus is only for use under the Food and Drug Administration's Emergency Use Authorization. Results are for the simultaneous detection and differentiation of SARS-CoV-2, influenza A, influenza B and RSV nucleic acids in clinical specimens. SARS-CoV-2, influenza A, influenza B and RSV RNA identified by this test are generally detectable in upper respiratory samples during the acute phase of infection. Positive results are Indicative of the presence of the identified virus, but do not rule out bacterial infection or co-infection with other pathogens not detected by this test. Clinical correlation with patient history and other diagnostic information is necessary to determine patient infection status. The agent detected may not be the definite cause of disease. Negative results do not preclude SARS-CoV-2, influenza A, influenza B and RSV infection and should not be used as the sole basis for treatment or other patient management decisions. Negative results must be combined with clinical observations, patient history and epidemiological information. An Invalid result may occur with specimen-associated inhibition unable to be resolved with specimen repeat. Fact Sheet for Healthcare Providers: https://www.fda.gov/media/924538/download Fact Sheet for Patients: https://www.fda.gov/media/087642/download us Isaías Ireland MD MICROBIOLOGY - GENERAL ORDERABL ES Final Result Performing Organization Address City/[facility] Co de Phone Number [facility] [address] [place] [address], * ECG 12 lead (04/19/2025 3:24 PM EDT) 04/19/2025 3:24 PM EDT us Isaías Ireland MD ECG ORDERABLES Final Result [facility] documented in this encounter Visit Diagnoses Diagnosis Prolonged Q-T interval on ECG- Primary Nonspecific abnormal electrocardiogram (ECG) (EKG) Dyspnea, unspecified type documented in this encounter Administered Medications Inactive Administered Medications - up to 3 most recent administrations Medication Order MAR Action Action Date Dose Rate Site furosemide (LASIX) injection 20 mg 20 mg, intravenous, Once, On 04/19/25 at 1540, For 1 dose, Look-alike/sound-alike medication - verify indication for use. IVP rate = 20 mg/min Given 04/19/2025 3:45 PM EDT 20 mg ipratropium-albuteroL (DUONEB) 0.5 mg-3 mg(2.5 mg base)/3 mL nebulizer solution 3 mL 3 mL, nebulization, Once, On 04/19/25 at 1705, For 1 dose, Implement INPATIENT/ED Bronchodilator Clinical Practice Guidelines? Yes Given 04/19/2025 5:15 PM EDT 3 mL documented in this encounter Active and Recently Administered Medications Times are shown in EDT. Scheduled Medication Order 04/17/2025 04/18/2025 04/19/2025 furosemide (LASIX) injection 20 mg (COMPLETED) 20 mg, intravenous, Once, On 04/19/25 at 1540, For 1 dose, Look-alike/sound-alike medication - verify indication for use. IVP rate = 20 mg/min 1545 (Given - Provid er: Crys Golden RN) ipratropium-albuteroL (DUONEB) 0.5 mg-3 mg(2.5 mg base)/3 mL nebulizer solution 3 mL (COMPLETED) 3 mL, nebulization, Once, On 04/19/25 at 1705, For 1 dose, Implement INPATIENT/ED Bronchodilator Clinical Practice Guidelines? Yes 1715 (Given - Provid er: Janeth Varela RCP) documented in this encounter Additional Health Concerns Infection Onset Date Last Indicated Resolved Time CRE 09/04/2018 09/04/2018 Respiratory Rule-Out 04/19/2025 04/19/2025 025 5:12 PM EDT Assessment Noted Time PHQ-9 Depression Total Score: 0 12/16/19 21 4:43 PM EST documented as of this encounter Care Teams Scientific Technical Writer Relationship Specialty Start Date End Date Carla Gaines [facility] Family Medicine [address] [place] [address] PCP - General Family Medicine 04/19/25 documented as of this encounter
[2025-04-22] VITALS (35 sets, daily range): BP systolic 122–146; BP diastolic 77–88; PULSE 76–106; TEMP 36.4–36.9; O2SAT 91–99; BMI 24.4; BMI 22.7
--- OUTSIDE RECORDS SUMMARY | 2025-04-22 13:49 | XMS_ITS | Encounter Summary ---
Author Organization [facility] [employer] [facility] Address [id number] [address] [place] [address] Care Team Providers Care Cigar Binder Name Role Phone Carla Gaines [facility] Family Medicine Primary Care Provider Reason for Visit * Reason Comments Med Refill Encounter Details Date Type Department Care Team ([facility] Contact Info) Description 08/29/2022 Refill [facility] [address] [place] [address] Juana Novoa, SEEING EYE DOG TRAINER-DISTRICT RECRUITER [address] [facility] [place] [address] Social History Tobacco Use Types Packs/Day Years Used Date Smoking Tobacco: Never Smokeless Tobacco: Never Alcohol Use Standard Drinks/Week Comments No 0 (1 standard drink = 0.6 oz pur e alcohol) PHQ-2 Answer Date Recorded Total Score 0 12/16/2020 Childcare Answer Date Recorded Do problems getting child ca re make it difficult for you to work or study? No 12/16/2020 Employment Answer Date Recorded Do you need help finding a [employer] [facility] career center and/or a training program? No 12/16/2020 Purpose - Life Answer Date Recorded I have a purpose and direction in my life. Stron gly Agree 12/16/2020 Sex and Gender Information Value Date Recorded Sex Assigned at Not on file Legal Sex Male 11:21 AM EDT Gender Identity Not on file Sexual Orientation Not on file documented as of this encounter Plan of Treatment Not on file documented as of this encounter Goals Goal Patient Goal Type Associated Problems Recent Progress Patient-Stated? Author <enter goal here> General Yes Barbara Hodges, CORI Note: Evaluation of progress towards goal: SNF documented as of this encounter Visit Diagnoses Not on filedocumented in this encounter Additional Health Concerns Infection Onset Date Last Indicated Resolved Time CRE 09/04/2018 09/04/2018 Respiratory Rule-Out 03/19/2025 03/19/2025 025 10:34 AM EDT Respiratory Rule-Out 04/19/2025 04/19/2025 025 5:12 PM EDT Assessment Noted Time PHQ-9 Depression Total Score: 0 12/16/19 21 4:43 PM EST documented as of this encounter Care Teams Cigar Binder Relationship Specialty Start Date End Date Carla Gaines [facility] Family Medicine [address] [place] [address] PCP - General Family Medicine 04/19/25 documented as of this encounter
--- OUTSIDE RECORDS SUMMARY | 2025-04-22 13:49 | XMS_ITS | Encounter Summary ---
Author Organization [facility] Address [address] [place] [address] Care Team Providers Care Oil Mixer Name Role Phone Oxana Martinez MD Primary Care Provider [phone] Encounter Details Date Type Department Care Team (Late st Contact Info) Description 06/22/2021 Direct Admit Orders [facility] [address] [place] [address] Suzanne Salazar, SUPERVISOR TAPING - DYE HOUSE HELPER [address] [facility] [address] [place] [address] Social History Tobacco Use Types Packs/Day Years [...] on filedocumented in this encounter Care Teams Oil Mixer Relationship Specialty Start Date End Date Oxana Martinez MD PCP - General 10/22/14 documented as of this encounter
--- OUTSIDE RECORDS SUMMARY | 2025-04-22 13:50 | XMS_ITS | Encounter Summary ---
Author Organization [facility] Address [address] [place] [address] Care Team Providers Care Body Builder Apprentice Name Role Phone Oxana Martinez MD Unavailable [phone] Oxana Martinez MD Primary Care Provider [phone] Perla Jones RN Unavailable [phone] Reason for Visit * Reason Comments Med Refill Encounter Details Date Type Department Care Team ([facility] Contact Info) Description 05/06/2024 Refill [facility] [address] [place] [id number] Oxana Martinez MD Gastro-esophageal reflux disease without esophagitis; Chronic pain disorder Social History Tobacco Use Types Packs/Day Years Used Date Smoking Tobacco: Never Smokeless Tobacco: Never Alcohol Use Standard Drinks/Week Comments Not Currently 0 (1 standard drink = 0.6 oz pure alcohol) Caffeine intake: 1-2 cups per day half and half coffee, 1 soda/day AUDIT-C Answer Date Recorded Q1: How often do you have a drink containing alcohol? Never 11/23/2023 Q2: How many drinks containi ng alcohol do you have on a typical day when you are drinking? Patient does not drink Q3: How often do you have si x or more drinks on one occasion? Never 11/23/2023 PHQ-2 Answer Date Recorded Patient Health Questionnaire-2 Score 0 06/04/2023 Sex and Gender Information Value Date Recorded Sex Assigned at Not on file Legal Sex Male 6:42 PM EDT Gender Identity Not on file Sexual Orientation Not on file documented as of this encounter Plan of Treatment Not on file documented as of this encounter Visit Diagnoses Diagnosis Gastro-esophageal reflux disease without esophagitis Chronic pain disorder Chronic pain syndrome documented in this encounter Care Teams Body Builder Apprentice Relationship Specialty Start Date End Date Oxana Martinez MD PCP - [employer] 11/19/17 Oxana Martinez MD PCP - General Family Medicine 03/27/23 Perla Jones, RN Registered Nurse Family Medicine 12/12/23 documented as of this encounter
--- OUTSIDE RECORDS SUMMARY | 2025-04-22 13:50 | XMS_ITS | Encounter Summary ---
Author Organization [facility] Address [address] [place] [address] Care Team Providers Care Knockout Machine Operator Name Role Phone Oxana Martinez MD Unavailable [phone] Oxana Martinez MD Primary Care Provider [phone] Perla Jones RN Unavailable Reason for Visit * Reason Comments Med Refill Encounter Details Date Type Department Care Team ([facility] st Contact Info) Description 10/31/2023 Refill [facility] [address] [place] [phone] Oxnaa Martinez MD Gastro-esophageal reflux disease without esophagitis; Chronic pain disorder; Chronic ulcer of lower extremity, unspecified laterality, unspecified ulcer stage (CMS/[facility]); Dementia, unspecified dementia severity, unspecified dementia type, unspecified whether behavioral, psychotic, or mood disturbance or anxiety (CMS/HCC); Mixed hyperlipidemia (CMS/HCC) ; Iron deficiency anemia, unspecified iron deficiency anemia type; Type 2 diabetes mellitus with diabetic neuropathy, unspecified whether half-way insulin use ([facility]); Benign essential hypertension (CMS/HCC) ; Diastolic dysfunction Social History Tobacco Use Types Packs/Day Years Used Date Smoking Tobacco: Never Smokeless Tobacco: Never Alcohol Use Standard Drinks/Week Comments Not Currently 0 (1 standard drink = 0.6 oz pur e alcohol) AUDIT-C Answer Date Recorded Q1: How often do you have a drink containing alcohol? Never 06/04/2023 Q2: How many drinks containi ng alcohol do you have on a typical day when you are drinking? Patient does not drink Q3: How often do you have si x or more drinks on one occasion? Never 06/04/2023 PHQ-2 Answer Date Recorded Patient Health Questionnaire-2 Score 0 06/04/2023 Sex and Gender Information Value Date Recorded Sex Assigned at Not on file Legal Sex Male 6:42 PM EDT Gender Identity Not on file Sexual Orientation Not on file documented as of this encounter Miscellaneous Notes * Telephone Encounter - Raeann Linda MA - 11/23/2023 8:57 AM EST ILYA Martinez, pt is scheduled for appt 11-23-22 for home visit/MAW and lab draw * Telephone Encounter - Raeann Linda MA - 11/16/2023 9:42 AM EST Labs ordered. Hillary, please review note in chart and call pt's granddaughter kayla to schedule an appt for MAW and lab draw. Thank you. * Telephone Encounter - Raeann Linda MA - 11/15/2023 12:24 PM EST I called pt's zara and left a detailed message notifying her that Dr. Martinez was going todo a home visit today due to laws regarding face to face appts for narcotics. Dr. Martinez, what labs do you want me to order for pt for his appt with Hillary Dexter? I will send this note to her to schedule a MAW appt with zara and get labs in the future. * Telephone Encounter - Raeann Linda MA - 11/15/2023 11:46 AM EST I called Kayla, pt's granddaughter. She is at work today and unable to be present for an appt for pt. She states Dr. Martinez could go to the house, but he would be alone and his dementia is getting really bad. She would prefer to be present for an appt with patient. I told her I thought it would probably be better if she would be there to speak for pt at an appt and would notify Dr Martinez of this. I said we could send a note to Hillary Dexter to call Kayla to schedule appt, but I would send this note back to Dr.. Martinez and double check this and call her with any other instructions. * Telephone Encounter - Wild Cifuentes - 11/14/2023 12:57 PM EST Needs refill for his Vitamin C 500 mgas pamela ,to Lissette Gaines documented in this encounter Plan of Treatment Not on file documented as of this encounter Procedures Procedure Name Priority Date/Time Associated Diagnosis Comments CBC Routine 11/23/2023 1:00 PM EST Iron deficiency anemia, unspecified iron deficiency anemia type MAGNESIUM Routine 11/23/2023 1:00 PM EST Benign essential hypertension (CMS/HCC) Diastolic dysfunction HEMOGLOBIN A1C Routine 11/23/2023 1:00 PM EST Type 2 diabetes mellitus with diabetic neuropathy, unspecified whether associate professor physician insulin use (CMS/HCC) LIPID PANEL Routine 11/23/2023 1:00 PM EST Mixed hyperlipidemia (CMS/HCC) COMPREHENSIVE METABOLIC PANEL Routine 11/23/2023 1:00 PM EST Mixed hyperlipidemia (CMS/HCC) Type 2 diabetes mellitus with diabetic neuropathy, unspecified whether associate professor physician insulin use (CMS/HCC) Benign essential hypertension (CMS/HCC) Diastolic dysfunction documented in this encounter Results * Magnesium (11/23/2023 1:00 PM EST) MAGNESIUM 2.0 1.5 - 2.5 mg/dL [facility] Blood Venous blood specimen / Unknown 11/23/2023 1:00 PM EST 11/23/2023 1:00 PM EST Narrative Resulting Agency Comment Performing Organization Information Site ID: QPT Name: [facility] Address: [address] [place] [address], [address] [place] [phone] Director: Sb Coughlin MD Oxana Martinez MD LAB BLOOD ORDERABLES Final Re sult Performing Organization Address [facility] Co de Phone Number [facility] * Lipid panel (11/23/2023 1:00 PM EST) CHOLESTEROL, TOTAL 99 <200 mg/dL [facility] HDL CHOLESTEROL 45 > OR = 40 mg/dL [facility] TRIGLYCERIDES 94 <150 mg/dL [facility] LDL-CHOLESTEROL 36 mg/dL (calc) [facility] Comment: Reference range: <100 Desirable range <100 mg/dL for primary prevention; <70 mg/dL for patients with CHD or diabetic patients with > or = 2 CHD risk factors. LDL-C is now calculated using the Patrick-Loreta calculation, which is a validated novel method providing better accuracy than the Friedewald equation in the estimation of LDL-C. Patrick SS et al. ELENA. 2013;310(19): 3193-2903 (http://education.LiveOnDemand.Prediculous/faq/HCW235) CHOL/HDLC RATIO 2.2 <5.0 (calc) [facility] NON HDL CHOLESTEROL 54 <130 mg/dL (calc) [facility] Comment: For patients with diabetes plus 1 major ASCVD risk factor, treating to a non-HDL-C goal of <100 mg/dL (LDL-C of <70 mg/dL) is considered a therapeutic option. Blood Venous blood specimen / Unknown 11/23/2023 1:00 PM EST 11/23/2023 1:00 PM EST Narrative Resulting Agency Comment Performing Organization Information Site ID: QPT Name: [facility] Address: [address] [place] [address], [address] [place] [phone] Director: Sb Coughlin MD Oxana Martinez MD LAB BLOOD ORDERABLES Final Re sult Performing Organization Address [facility]/ZIP Co de Phone Number [facility] * (ABNORMAL) Hemoglobin A1c (11/23/2023 1:00 PM EST) Hemoglobin A1C 7.5(H) <5.7 % of total Hgb [facility] Comment: For someone without known diabetes, a hemoglobin A1c value of 6.5% or greater indicates that they may have diabetes and this should be confirmed with a follow-up test. For someone with known diabetes, a value <7% indicates that their diabetes is well controlled and a value greater than or equal to 7% indicates suboptimal control. A1c targets should be individualized based on duration of diabetes, age, comorbid conditions, and other considerations. Currently, no consensus exists regarding use of hemoglobin A1c for diagnosis of diabetes for children. Blood Venous blood specimen / Unknown 11/23/2023 1:00 PM EST 11/23/2023 1:00 PM EST Narrative Resulting Agency Comment Performing Organization Information Site ID: QPT Name: [facility] Address: [address] [place] [address], [address] [place] [phone] Director: Sb Coughlin MD Oxana Martinez MD LAB BLOOD ORDERABLES Final Re sult Performing Organization Address [facility] de Phone Number [facility] * (ABNORMAL) Comprehensive metabolic panel (11/23/2023 1:00 PM EST) Glucose 150(H) 65 - 99 mg/dL [facility] Comment: Fasting reference interval For someone without known diabetes, a glucose value >125 mg/dL indicates that they may have diabetes and this should be confirmed with a follow-up test. BUN 17 7 - 25 mg/dL [facility] Creatinine 0.78 0.70 - 1.22 mg/dL [facility] EGFR 90 > OR = 60 mL/min/1. 73m2 [facility] BUN/CREATININE RATIO SEE NOTE: 6 - 22 (calc) [facility] Comment: Not Reported: BUN and Creatinine are within reference range. Sodium 139 135 - 146 mmol/L [facility] Potassium, Bld 4.1 3.5 - 5.3 mmol/L [facility] Chloride 99 98 - 110 mmol/L [facility] Carbon Dioxide 31 20 - 32 mmol/L [facility] Calcium 9.0 8.6 - 10.3 mg/dL [facility] PROTEIN, TOTAL 6.3 6.1 - 8.1 g/dL [facility] ALBUMIN 3.5(L) 3.6 - 5.1 g/dL [facility] GLOBULIN 2.8 1.9 - 3.7 g/dL (calc) [facility] ALBUMIN/GLOBULIN RATIO 1.3 1.0 - 2.5 (calc) [facility] BILIRUBIN, TOTAL 0.3 0.2 - 1.2 mg/dL [facility] ALKALINE PHOSPHATASE 86 35 - 144 U/L [facility] AST 17 10 - 35 U/L [facility] ALT 7(L) 9 - 46 U/L [facility] Blood Venous blood specimen / Unknown 11/23/2023 1:00 PM EST 11/23/2023 1:00 PM EST Narrative Resulting Agency Comment Performing Organization Information Site ID: QPT Name: [facility] Address: [address] [place] [phone] Director: Sb Coughlin MD Oxana Martinez MD LAB BLOOD ORDERABLES Final Re sult [facility] * (ABNORMAL) CBC (11/23/2023 1:00 PM EST) WHITE BLOOD CELL COUNT 10.2 3.8 - 10.8 Thousand/u L [facility] RED BLOOD CELL COUNT 3.87(L) 4.20 - 5.80 Million/uL [facility] HEMOGLOBIN 11.6(L) 13.2 - 17.1 g/dL [facility] HEMATOCRIT 36.5(L) 38.5 - 50.0 % [facility] MCV 94.3 80.0 - 100.0 fL [facility] MCH 30.0 27.0 - 33.0 pg [facility] MCHC 31.8(L) 32.0 - 36.0 g/dL [facility] RDW 14.2 11.0 - 15.0 % [facility] PLATELET COUNT 506(H) 140 - 400 Thousand/u L [facility] MPV 9.9 7.5 - 12.5 fL [facility] Blood Venous blood specimen / Unknown 11/23/2023 1:00 PM EST 11/23/2023 1:00 PM EST Narrative Resulting Agency Comment Performing Organization Information Site ID: QPT Name: [facility] Address: [address] [place] [address], [address] [place] [address] Director: Sb Coughlin MD Oxana Martinez MD LAB BLOOD ORDERABLES Final Re sult [facility] documented in this encounter Visit Diagnoses Diagnosis Gastro-esophageal reflux disease without esophagitis Chronic pain disorder Chronic pain syndrome Chronic ulcer of lower extremity, unspecified laterality, unspecified ulcer stage ([facility]) Dementia, unspecified dementia severity, unspecified dementia type, unspecified whether behavioral, psychotic, or mood disturbance or anxiety (CMS/[facility]) Mixed hyperlipidemia ([facility]) Mixed hyperlipidemia Iron deficiency anemia, unspecified iron deficiency anemia type Type 2 diabetes mellitus with diabetic neuropathy, unspecified whether associate professor physician insulin use ([facility]) Benign essential hypertension ([facility]) Essential hypertension, benign Diastolic dysfunction Unspecified heart disease documented in this encounter Care Teams Knockout Machine Operator Relationship Specialty Start Date End Date Oxana Martinez MD PCP - [employer] 11/19/17 Oxana Martinez MD PCP - General Family Medicine 03/27/23 Perla Jones, RN Registered Nurse Family Medicine 12/12/23 documented as of this encounter
--- OUTSIDE RECORDS SUMMARY | 2025-04-22 13:50 | XMS_ITS | Encounter Summary ---
Author Organization [facility] Address [address] [place] [address] Care Team Providers Care Blind Slat Stapling Machine Operator Name Role Phone Oxana Martinez MD Unavailable [phone] Oxana Martinez MD Primary Care Provider [phone] Perla Jones RN Unavailable [phone] Encounter Details Date Type Department Care Team (Late st Contact Info) Description 05/14/2023 Abstract [facility] [address] [place] [id number] Oxana Martinez MD Social History Tobacco Use Types Packs/Day Years Used Date Smoking Tobacco: Never Assessed Sex and Gender Information Value Date Recorded Sex Assigned at Not on file Legal Sex Male 6:42 PM EDT Gender Identity Not on file Sexual Orientation Not on file documented as of this encounter Plan of Treatment Not on file documented as of this encounter Visit Diagnoses Not on filedocumented in this encounter Care Teams Blind Slat Stapling Machine Operator Relationship Specialty Start Date End Date Oxana Martinez MD PCP - [employer] 11/19/17 Oxana Martinez MD PCP - General Family Medicine 03/27/23 Perla Jones, RN Registered Nurse Family Medicine 12/12/23 documented as of this encounter
--- OUTSIDE RECORDS SUMMARY | 2025-04-22 13:50 | XMS_ITS | Encounter Summary ---
Author Organization [employer] tem Address [id number] [address] [place] [address] Care Team Providers Care Boilers And Pressure Vessels Inspector Name Role Phone Carla Gaines [facility] Family Medicine Primary Care Provider Encounter Details Date Type Department Care Team (Latest Contact Info) Description 04/19/2025 Travel Social History Tobacco Use Types Packs/Day Years [...] Recorded Do you need help finding a steward health care system career center and/or a training program? No [...] <enter goal here> General Yes Barbara Hodges, TELECOMMUNICATION LINES REPAIRER Note: Evaluation of progress towards goal: SNF documented as of this encounter Visit Diagnoses Not on filedocumented in this encounter Additional Health Concerns Infection Onset Date Last Indicated Resolved Time CRE 09/04/2018 09/04/2018 Respiratory Rule-Out 04/19/2025 04/19/2025 025 5:12 PM EDT Assessment Noted Time PHQ-9 Depression Total Score: 0 12/16/19 21 4:43 PM EST documented as of this encounter Care Teams Boilers And Pressure Vessels Inspector Relationship Specialty Start Date End Date Carla Gaines [facility] Family Medicine [address] [place] [phone] PCP - General Family Medicine 04/19/25 documented as of this encounter
--- OUTSIDE RECORDS SUMMARY | 2025-04-22 13:50 | XMS_ITS | Encounter Summary ---
Author Organization [facility] Address [address] [place] [address] Care Team Providers Care Ball Mill Mixer Name Role Phone Oxana Martinez MD Unavailable [phone] Oxana Martinez MD Primary Care Provider [phone] Perla Jones RN Unavailable [phone] Reason for Visit * Reason Comments Med Refill Encounter Details Date Type Department Care Team (Late st Contact Info) Description 05/22/2023 Refill [facility] [address] [place] [address] Oxana Martinez MD Muscle spasm Social History Tobacco Use Types Packs/Day Years Used Date Smoking Tobacco: Never Assessed Sex and Gender Information Value Date Recorded Sex Assigned at Not on file Legal Sex Male 6:42 PM EDT Gender Identity Not on file Sexual Orientation Not on file documented as of this encounter Plan of Treatment Not on file documented as of this encounter Visit Diagnoses Diagnosis Muscle spasm Spasm of muscle documented in this encounter Care Teams Ball Mill Mixer Relationship Specialty Start Date End Date Oxana Martinez MD PCP - [employer] 11/19/17 Oxana Martinez MD PCP - General Family Medicine 03/27/23 Perla Jones, MONIKA Registered Nurse Family Medicine 12/12/23 documented as of this encounter
--- OUTSIDE RECORDS SUMMARY | 2025-04-22 13:50 | XMS_ITS | Encounter Summary ---
Author Organization [facility] Address [address] [place] [address] Care Team Providers Care Graduate Rn Name Role Phone Oxana Martinez MD Unavailable [phone] Oxana Martinez MD Primary Care Provider [phone] Perla Jones RN Unavailable [phone] Encounter Details Date Type Department Care Team (Late st Contact Info) Description 06/19/2023 Orders Only [facility] [address] [place] [address] Leana Edouard MA Social History Tobacco Use Types Packs/Day Years [...] Exposure Response Date Recorded In the last 10 days, have yo u been in contact with someone who was confirmed or suspected to have Coronavirus/COVID-19? No / Unsure 06/04/2023 1:03 PM EDT documented as of this encounter Plan of Treatment Not on file documented as of this encounter Visit Diagnoses Not on filedocumented in this encounter Care Teams Graduate Rn Relationship Specialty Start Date End Date Oxana Martinez MD PCP - [employer] 11/19/17 WonderOxana baxter MD PCP - General Family Medicine 03/27/23 Perla Jones, RN Registered Nurse Family Medicine 12/12/23 documented as of this encounter
--- OUTSIDE RECORDS SUMMARY | 2025-04-22 13:50 | XMS_ITS | Encounter Summary ---
Author Organization [facility] Address [address] [place] [address] Care Team Providers Care Tsa Screener Name Role Phone Oxana Martinez MD Unavailable [phone] Oxana Martinez MD Primary Care Provider [phone] Perla Jones RN Unavailable [phone] Reason for Visit * Reason Comments Med Refill Encounter Details Date Type Department Care Team ([facility] Contact Info) Description 09/26/2023 Refill [facility] [address] [place] [phone] Oxana Martinez MD Allergic rhinitis, unspecified seasonality, unspecified trigger (Primary Dx) Social History Tobacco Use Types Packs/Day Years [...] as of this encounter Visit Diagnoses Diagnosis Allergic rhinitis, unspecified seasonality, unspecified trigger- Primary documented in this encounter Care Teams Tsa Screener Relationship Specialty Start Date End Date Oxana Martinez MD PCP - [employer] 11/19/17 Oxana Martinez MD PCP - General Family Medicine 03/27/23 Perla Jones, RN Registered Nurse Family Medicine 12/12/23 documented as of this encounter
--- OUTSIDE RECORDS SUMMARY | 2025-04-22 13:50 | XMS_ITS | Clinical Summary ---
Author Organization [facility] Address [address] [place] [address] Care Team Providers Care Sales Commissions Analyst Name Role Phone Oxana Martinez MD Unavailable [phone] Oxana Martinez MD Primary Care Provider [phone] Perla Jones RN Unavailable Allergies Active Allergy Reactions Criticality Noted Date Comments Amoxicillin Hives,Unknown 08/27/2013 Other Reaction(s): all PCN Baclofen Dizziness 01/29/2019 Cephalexin Unknown 08/27/2013 Ciprofloxacin 12/05/2021 Dexamethasone Unknown 06/08/2015 Hydrocodone-Acetaminophen GI intolerance 2017 Iodinated Contrast Media Unknown 08/27/2013 Latex Unknown 08/27/2013 Oxaprozin Unknown 08/27/2013 Povidone-Iodine 12/05/2021 Statins 01/29/2018 Other Reaction(s): Unknown Reaction Sulfa Antibiotics 01/29/2018 Wound Dressing Adhesive 06/04/2023 Tape Medications EQUATE STOOL SOFTENER 100 MG capsule Take 2 capsules by mouth 2 (two) times a day as needed for constipation. Active senna (Senokot) 8.6 MG tablet Take 1 tablet by mouth as needed at bedtime for constipation. Active Multiple Vitamins-Minerals (Centrum Silver 50+Men) tablet Take 1 tablet by mouth 1 (one) time each day at the same time. Active albuterol (2.5 MG/3ML) 0.083% nebulizer solution Take 2.5 mg by nebulization every 6 (six) hours if needed for wheezing or shortness of breath. Active acetaminophen (Tylenol 8 Hour) 650 MG ER tablet Take 1,000 mg by mouth every 6 (six) hours if needed for mild pain Do not crush, chew, or split. Active oxygen (O2) gas Inhale 2.5 L/min continuously. via nasal canula Active zinc gluconate 50 MG tabletIndications :Vitamin D deficiency Take 1 tablet (50 mg) by mouth in the morning. 30 tablet 6 023 Active coenzyme Q-10 50 MG capsuleIndication s:Vitamin D deficiency,[place] l deficiency TAKE 2 CAPSULES BY MOUTH ONCE DAILY FOR 30 DAYS 60 capsule 6 023 Active tiZANidine (Zanaflex) 4 MG tabletIndications :Muscle spasm TAKE 1 TABLET BY MOUTH TWICE DAILY (IN THE MORNING AND BEFORE BEDTIME) 180 tablet 024 Active rOPINIRole (Requip) 1 MG tabletIndications :Restless leg TAKE 1 TABLET BY MOUTH IN THE MORNING AND 1 AT BEDTIME 60 tablet 11 024 Active tamsulosin (Flomax) 0.4 MG 24 hr capsuleIndication s:Benign prostatic hyperplasia with lower urinary tract symptoms, symptom details unspecified TAKE 1 CAPSULE BY MOUTH ONCE DAILY AT THE SAME TIME DAILY. 90 capsule 3 024 Active clotrimazole-beta methasone (Lotrisone) lotion Apply topically 2 (two) times a day Active ammonium lactate (Lac-Hydrin) 12 % lotionIndications :Dry skin dermatitis Apply topically Daily as needed for dry skin (apply to both legs) 225 g 024 2024 Active budesonide-formot wili (Symbicort) 80-4.5 MCG/ACT inhalerIndication s:Chronic obstructive pulmonary disease, unspecified COPD type (CMS/HCC) Inhale 2 puffs every 12 (twelve) hours 6.9 g 024 2024 Active pantoprazole (ProtoNix) 40 MG EC tabletIndications :Gastro-esophagea l reflux disease without esophagitis TAKE 1 TABLET BY MOUTH IN THE MORNING AND AT BEDTIME 180 tablet 024 Active sertraline (Zoloft) 50 MG tabletIndications :Recurrent major depressive disorder, in partial remission (HCC) (CMS/HCC) Take 1 tablet (50 mg) by mouth Daily 90 tablet 3 024 Active donepezil (Aricept) 5 MG tabletIndications :Dementia, unspecified dementia severity, unspecified dementia type, unspecified whether behavioral, psychotic, or mood disturbance or anxiety (CMS/HCC) TAKE 1 TABLET BY MOUTH AT NIGHT AT BEDTIME 90 tablet 3 024 Active Aspirin Low Dose 81 MG EC tabletIndications :Hx of CABG Take 1 tablet by mouth once daily 90 tablet 025 Active Calcium Carb-Cholecalcife rol (Oyster Shell Calcium w/D) 500-5 MG-MCG tabletIndications :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 180 tablet 025 Active gabapentin (Neurontin) 100 MG capsuleIndication s:Chronic pain disorder Take 1 capsule (100 mg) by mouth in the morning and 1 capsule (100 mg) in the evening and 1 capsule (100 mg) before bedtime. 90 capsule 2 025 Active ferrous sulfate (SV Iron) 325 (65 Fe) MG tabletIndications :Anemia, unspecified type Take 1 tablet (325 mg) by mouth Daily 90 tablet 025 Active atorvastatin (Lipitor) 20 MG tabletIndications :Mixed hyperlipidemia (CMS/HCC) Take 1 tablet (20 mg) by mouth Daily 90 tablet 025 Active furosemide (Lasix) 40 MG tabletIndications :Chronic congestive heart failure, unspecified heart failure type (CMS/HCC) Take 1 tablet (40 mg) by mouth in the morning. 90 tablet 025 Active celecoxib (CeleBREX) 100 MG capsuleIndication s:Chronic pain disorder Take 1 capsule (100 mg) by mouth Daily 90 capsule 025 Active MAGnesium-Oxide 400 (240 Mg) MG tabletIndications :Chronic diastolic heart failure (CMS/HCC) TAKE 1 TABLET BY MOUTH IN THE MORNING AND 1 IN THE EVENING WITH MEALS 90 tablet 025 Active cholecalciferol (Vitamin D-3) 25 MCG (1000 UT) tabletIndications :Vitamin D deficiency Take 1 tablet by mouth once daily 30 tablet 025 Active cholecalciferol (Vitamin D-3) 25 MCG (1000 UT) tabletIndications :Vitamin D deficiency Take 1 tablet (25 mcg) by mouth Daily 30 tablet 11 024 2024 Discontinued MAGnesium-Oxide 400 (240 Mg) MG tabletIndications :Chronic diastolic heart failure (CMS/HCC) Take 1 tablet (400 mg) by mouth in the morning and 1 tablet (400 mg) in the evening. Take with meals. 90 tablet 3 024 2024 Discontinued Active Problems Problem Noted Date Diagnosed Date Thrombocytosis after splenectomy 05/01/2024 Physical debility 04/23/2024 Diabetic cataract 11/28/2023 Acquired absence of spleen 06/04/2023 Anxiety disorder 06/04/2023 Arthritis of right hand 06/04/2023 Carpal tunnel syndrome 06/04/2023 Cataract, bilateral 06/04/2023 Cognitive communication deficit 06/04/2023 Constipation 06/04/2023 Dementia 06/04/2023 Age-related cognitive decline 06/04/2023 Dependence on supplemental oxygen 06/04/2023 Diastolic dysfunction 06/04/2023 Diverticulosis 06/04/2023 Hearing loss 06/04/2023 Hernia of abdominal cavity 06/04/2023 Lumbar radiculopathy 06/04/2023 Hx of CABG 06/04/2023 Hypertensive heart disease with heart failure LVH (left ventricular hypert rophy) due to hypertensive disease, without heart failure 06/04/2023 Impairment of balance 06/04/2023 Insomnia 06/04/2023 Macular degeneration 06/04/2023 Mononeuritis of upper limb 06/04/2023 Nontoxic goiter, unspecified 06/04/2023 Old myocardial infarction 06/04/2023 Osteoarthritis of ankle 06/04/2023 PAD (peripheral artery disease) 06/04/2023 Recurrent falls 06/04/2023 Recurrent major depressive d isorder, in partial remission (HCC) 06/04/2023 Restrictive lung disease 06/04/2023 Right bundle branch block 06/04/2023 Spondylosis, unspecified 06/04/2023 History of subarachnoid hemorrhage 06/04/2023 Tremor of both hands 06/04/2023 Type 2 diabetes mellitus with diabetic neuropath y 06/04/2023 Type 2 diabetes mellitus wit h diabetic peripheral angiopathy without gangrene 06/04/2023 Hypoglycemia associated with diabetes 06/04/2023 Type 2 diabetes mellitus with diabetic polyneuro deric 06/04/2023 Type 2 diabetes mellitus with other specified co mplication 06/04/2023 Urinary incontinence 06/04/2023 Vitamin D deficiency 06/04/2023 Chronic venous hypertension (idiopathic) with ulcer of right lower extremity 06/04/2023 Other chronic pain 06/04/2023 Gastro-esophageal reflux disease without esophag itis 05/09/2023 Benign prostatic hyperplasia 05/09/2023 Chronic obstructive pulmonary disease 05/09/2023 Chronic pain disorder 05/09/2023 Chronic ulcer of lower extremity 05/09/2023 Mixed hyperlipidemia 02/19/2023 Lymphedema of both lower extremities 05/26/2022 Morbid (severe) obesity due to excess calories 0 12/09/2021 Recurrent abdominal hernia without obstruction o r gangrene 06/25/2021 Chronic diastolic heart failure 06/24/2021 Simple chronic bronchitis 06/24/2021 Generalized weakness 12/16/2020 Atherosclerotic heart diseas e of [place] coronary artery with other forms of angina pectoris 07/21/2020 Chronic acquired lymphedema 04/14/2020 Edema of extremities 10/10/2017 Overview (06/04/2023): 08/19 regulatory import Venous insufficiency of lower extremity 10/19/20 14 Osteoarthritis 08/27/2013 Obstructive sleep apnea syndrome 03/30/2009 Benign essential hypertension 03/19/2008 Pure hypercholesterolemia 10/04/2006 Resolved Problems Problem Noted Date Diagnosed Date Resolved Date Iron deficiency anemia 06/04/202307/09 Encounters Date Type Department Care Team Description 04/20/2025 Patient Outreach [facility] [address] [place] [address] Perla Jones RN 04/19/2025 Abstract [facility] [address] [place] [address] Oxana Martinez MD 04/19/2025 Abstract [facility] [address] [place] [address] Oxana Martinez MD 04/19/2025 Abstract [facility] [address] [place] [address] Oxana Martinez MD 04/11/2025 Refill [facility] [address] [place] [address] Oxana Martinez MD Chronic diastolic heart failure ([facility]/HCC); Vitamin D deficiency 03/20/2025 Patient Outreach [facility] [address] [place] [address] Perla Jones RN 03/04/2025 Patient Outreach [facility] [address] [place] [address] Perla Jones RN 02/11/2025 Patient Outreach [facility] [address] 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 (Primary Dx); Chronic pain disorder; Anemia, unspecified type; Mixed hyperlipidemia ([facility]/HCC) ; Chronic congestive heart failure, unspecified heart failure type ([facility]); Chronic obstructive pulmonary disease, unspecified COPD type ([facility]); Chronic ulcer of lower extremity, unspecified laterality, unspecified ulcer stage ([facility]/HCC) 02/03/2025 Refill [facility] [address] [place] [phone] Oxana Martinez MD Anemia, unspecified type 01/24/2025 Refill [facility] [address] [place] [phone] Oxana Martinez MD Anemia, unspecified type from Last 3 Months Immunizations Immunization Administration Dates Next Due Influenza, High Dose Seasona l, Preservative Free 09/02/2020,09/26/2018,08/15/2016,08/03,08/18/2014 Influenza, High-dose Seasona l, Quadrivalent, Preservative Free 11/23/2023,09/14/2021 Influenza, injectable, quadr ivalent, preservative free 10/05/2019,08/15/2017 Pneumococcal Conjugate PCV 13 08/26/2013 Pneumococcal Polysaccharide PPSV23 08/19/2008 Pneumococcal, Unspecified 08/19/2008 Td (adult) 08/11/2009 Td (adult), unspecified 08/11/2009 Zoster, live 04/17/2014 Family History Medical History Relation Name Comments Fall Father Heart disease Maternal Grandmother Heart disease Mother Cancer Paternal Grandfather Cancer Sibling Relation Name Status Comments Father Maternal Grandmother Mother Paternal Grandfather Sibling Social History Tobacco Use Types Packs/Day Years Used Date Smoking Tobacco: Never Smokeless Tobacco: Never Tobacco Cessation:Counseling Given: Not Answered Alcohol Use Standard Drinks/Week Comments Not Currently [...] on file Sexual Orientation Not on file Last Filed Vital Signs Vital Sign Reading Time Taken Comments Blood Pressure 128/76 01/14/2025 1:28 PM EST Pulse 86 01/14/2025 1:28 PM EST Temperature 36.5 C (97.7 F) 01/14/2025 1:28 PM EST Respiratory Rate - - Oxygen Saturation 95% 01/14/2025 1:28 PM EST Inhaled Oxygen Concentration - - Weight 86.6 kg (191 lb) 09/14/2021 12:00 PM EDT Height 171.5 cm (5' 7.5 ) 03/22/2023 12:00 PM ED T Body Mass Index 29.47 09/14/2021 12:00 PM EDT Plan of Treatment Health Maintenance Due Date Last Done Comments Diabetes: Urine Protein Screening 07/06/2021 07/06/2020, 07/06/2020, 09/26/2018 Diabetes: Hemoglobin A1C 08/01/2024 024, 05/01/2024, 11/23/2023, Additional history exists Influenza Vaccine (Season Ended) 2025 11/23/2023, 09/14/2021, 09/02/2020, Additional history exists Diabetes: Retinopathy Screening 07/31/2025 Pneumococcal Vaccine: 65+ Years Completed 08/26/2013, 08/19/2008, 08/19/2008 Procedures Procedure Name Priority Date/Time Associated Diagnosis Comments HEMOGLOBIN A1C Routine 05/01/2024 9:10 AM EDT DIABETIC RETINOPATHY SCREENING - OU - BOTH EYES Routine 07/31/2023 3:31 PM EDT MICROALBUMIN CREATININE RATIO, U Routine 07/06/2020 from Last 3 Months or Most Recently Relevant to Health Maintenance Results * (ABNORMAL) Hemoglobin A1c (05/01/2024 9:10 AM EDT) HEMOGLOBIN A1C 6.8(H) 4.4 - 5.6 % [facility] Comment: NOTE ADA Guidelines Result HgbA1c Normal : less than 5.7 % Prediabetes : 5.7 % to 6.4 % Diabetes : > 6.4 % Use with caution in patients with abnormal hemoglobin variants as the half-life of red blood cells and in vivo glycation rates are affected. AVERAGE GLUCOSE 148 mg/dL [facility] Comment:PERFORMED AT [facility] [address],[place] [address] 05/01/2024 9:10 AM EDT 05/01/2024 9:29 AM EDT us Oxana Martinez MD LAB BLOOD ORDERABLES Final Re sult [facility] * Diabetic Retinopathy Screening - OU - Both Eyes (07/31/2023 3:31 PM EDT) Anatomical Region Laterality Modality Head Other us Oxana Martinez MD OPHTH PHOTOGRAPHY Final Resul t * MICROALBUMIN CREATININE RATIO, U (07/06/2020) MALB <0.7 0.0 - 1.9 [facility] URINE CREAT 57.00 [facility] ALB/CREAT RATIO <3.5 0.0 - 30.0 [facility] Comment:PERFORMED AT [facility] [address],[place] [address] 07/06/2020 us Oxana Martinez MD [facility] Final Result [facility] from Last 3 Months or Most Recently Relevant to Health Maintenance Insurance [employer] Advance Directives Documents on File Type Date Recorded Patient Bag Checker Expl anation Advance Directives and Living Will 01/15/2025 9:21 AM 01-14 DNRCC * DNR-CC (Latest Code Status on File) Date Activated Date Inactivated Comments 01/14/2025 4:30 PM Care Teams Sales Commissions Analyst Relationship Specialty Start Date End Date Oxana Martinez MD PCP - [employer] 11/19/17 Oxana Martinez MD PCP - General Family Medicine 03/27/23 Perla Jones, RN Registered Nurse Family Medicine 12/12/23
--- OUTSIDE RECORDS SUMMARY | 2025-04-22 13:50 | XMS_ITS | Encounter Summary ---
Author Organization [facility] Address [address] [place] [address] Care Team Providers Care Brazer Electronic Name Role Phone Oxana Martinez MD Unavailable [phone] Oxana Martinez MD Primary Care Provider [phone] Perla Jones RN Unavailable [phone] Encounter Details Date Type Department Care Team (Late st Contact Info) Description 09/12/2023 Abstract [facility] [address] [place] [phone] Oxana Martinez MD Social History Tobacco Use [...] on filedocumented in this encounter Care Teams Brazer Electronic Relationship Specialty Start Date End Date Oxana Martinez MD PCP - [employer] 11/19/17 Oxana Martinez MD PCP - General Family Medicine 03/27/23 Perla Jones, RN Registered Nurse Family Medicine 12/12/23 documented as of this encounter
--- OUTSIDE RECORDS SUMMARY | 2025-04-22 13:50 | XMS_ITS | Encounter Summary ---
Author Organization [employer] Address [id number] [address] [place] [address] Care Team Providers Care Nuclear Unit Operator Name Role Phone Carla Gaines [facility] Family Medicine Primary Care Provider Encounter Details Date Type Department Care Team ([facility] st Contact Info) Description 09/23/2018 Telephone [facility] [address] [place] [phone] Nisa Abreu CMA Social History Tobacco Use Types Packs/Day Years [...] Last Indicated Resolved Time CRE 09/04/2018 09/04/2018 COVID-19 Rule-Out 10/14/2021 10/14/2021 10/14/2021 4:23 PM EST Enteric Rule-Out 10/14/2021 10/14/2021 10/21/2021 11:14 PM EST COVID-19 Rule-Out 10/20/2021 10/20/2021 10/20/2021 4:00 AM EST Respiratory Rule-Out 12/13/2021 12/13/2021 022 10:09 AM EST Respiratory Rule-Out 03/19/2025 03/19/2025 025 10:34 AM EDT Respiratory Rule-Out 04/19/2025 04/19/2025 025 5:12 PM EDT documented as of this encounter Care Teams Nuclear Unit Operator Relationship Specialty Start Date End Date [facility] [address] [place] [address] PCP - General Family Medicine 04/19/25 documented as of this encounter
--- OUTSIDE RECORDS SUMMARY | 2025-04-22 13:50 | XMS_ITS | Encounter Summary ---
Author Organization [facility] Address [address] [place] [address] Care Team Providers Care Mild Disabilities Teacher Name Role Phone Oxana Martinez MD Unavailable [phone] Oxana Martinez MD Primary Care Provider Perla Jones RN Unavailable [phone] Reason for Visit * Reason Comments Med Refill Encounter Details Date Type Department Care Team ([facility] Contact Info) Description 12/16/2023 Refill [facility] [address] [place] [phone] Oaxna Martinez MD Chronic congestive heart failure, unspecified heart failure type (CMS/HCC) Social History Tobacco Use Types Packs/Day Years [...] as of this encounter Visit Diagnoses Diagnosis Chronic congestive heart failure, unspecified heart failure type (CMS/HCC) documented in this encounter Care Teams Mild Disabilities Teacher Relationship Specialty Start Date End Date Oxana Martinez MD PCP - [employer] 11/19/17 Oxana Martinez MD PCP - General Family Medicine 03/27/23 Perla Jones, RN Registered Nurse Family Medicine 12/12/23 documented as of this encounter
--- OUTSIDE RECORDS SUMMARY | 2025-04-22 13:50 | XMS_ITS | Encounter Summary ---
Author Organization [facility] tem Address [id number] [address] [place] [address] Care Team Providers Care Food Production Worker Name Role Phone Carla Gaines [facility] Family Medicine Primary Care Provider Encounter Details Date Type Department Care Team (Late st Contact Info) Description 01/08/2019 Telephone [facility] [address] [place] [phone] Afshan Forrest CNA Social History Tobacco Use Types Packs/Day Years [...] documented as of this encounter Care Teams Food Production Worker Relationship Specialty Start Date End Date Carla Gaines [facility] Family Medicine [address] [place] [address] PCP - General Family Medicine 04/19/25 documented as of this encounter
--- OUTSIDE RECORDS SUMMARY | 2025-04-22 13:50 | XMS_ITS | Encounter Summary ---
Author Organization [facility] Address [address] [place] [address] Care Team Providers Care Control Operator Flow Coat Name Role Phone Oxana Martinez MD Unavailable [phone] Oxana Martinez MD Primary Care Provider [phone] Perla Jones RN Unavailable [phone] Encounter Details Date Type Department Care Team (Late st Contact Info) Description 11/28/2023 Orders Only [facility] [address] [place] [address] Oxana Martinez MD Social History Tobacco Use [...] Procedure Name Priority Date/Time Associated Diagnosis Comments DIABETIC RETINOPATHY SCREENING - OU - BOTH EYES Routine 07/31/2023 3:31 PM EDT documented in this encounter Results * Diabetic Retinopathy Screening - OU - Both Eyes (07/31/2023 3:31 PM EDT) Anatomical Region Laterality Modality Head Other us Oxana Martinez MD OPHTH PHOTOGRAPHY Final Resul t documented in this encounter Visit Diagnoses Not on filedocumented in this encounter Care Teams Control Operator Flow Coat Relationship Specialty Start Date End Date Oxana Martinez MD PCP - [employer] 11/19/17 Oxana Martinez MD PCP - General Family Medicine 03/27/23 Perla Jones, RN Registered Nurse Family Medicine 12/12/23 documented as of this encounter
--- OUTSIDE RECORDS SUMMARY | 2025-04-22 13:50 | XMS_ITS | Encounter Summary ---
Author Organization [facility] Address [address] [place] [address] Care Team Providers Care Fiber Optic Assembler Name Role Phone Oxana Martinez MD Unavailable [phone] Oxana Martinez MD Primary Care Provider [phone] Perla Jones RN Unavailable [phone] Encounter Details Date Type Department Care Team (Late st Contact Info) Description 07/01/2024 Abstract [facility] [address] [place] [id number] Oxana Martinez MD Social History Tobacco Use [...] on filedocumented in this encounter Care Teams Fiber Optic Assembler Relationship Specialty Start Date End Date Oxana Martinez MD PCP - [employer] 11/19/17 WonderOxana baxter MD PCP - General Family Medicine 03/27/23 Perla Jones, RN Registered Nurse Family Medicine 12/12/23 documented as of this encounter
--- OUTSIDE RECORDS SUMMARY | 2025-04-22 13:50 | XMS_ITS | Clinical Summary ---
Author Organization [facility] tem Address [id number] [address] [place] [address] Care Team Providers Care Center Medical Director Name Role Phone Carla Tucker [facility] Medicine Primary Care Provider Allergies Active Allergy Reactions Criticality Noted Date Comments Amoxicillin Hives 10/19/2014 Povidone-Iodine 12/05/2021 Celecoxib 01/29/2018 Cephalexin Other (See Comments) 06/08/2015 Ciprofloxacin 12/05/2021 Dexamethasone Other (See Comments) 09/14/2015 Iodinated Contrast Media Other (See Comments) 1 Latex 06/08/2015 Other Other (See Comments) 08/10/2011 Oxaprozin 06/08/2015 Polymox Other (See Comments) 08/27/2013 Simvastatin Other (See Comments) 09/14/2015 Bdqrwhy-Lve-Chi Reductase Inhibitors 01/29/2018 Sulfa (Sulfonamide Antibiotics) 11/19 Sulfamethizole 01/29/2018 Hydrocodone-Acetaminophen GI Disturbance 2017 Medications OMEGA-3 ACID ETHYL ESTERS (LOVAZA ORAL) Take 1 g by mouth daily. Active miscellaneous medical supply miscIndications :Wound healing, delayed Aquacel AG cut to fit wound bed, change daily 30 each 3 01/31/20 18 Active calcium carbonate-vitam in D3 (OSCAL 500 + D) 500 mg(1,250mg) -200 units per tablet Take 1 tablet by mouth in the morning and 1 tablet in the evening. Take with meals. Active cholecalciferol (VITAMIN D3) 1,000 units tablet Take 1,000 Units by mouth daily. Active coenzyme Q10 100 mg capsule Take 200 mg by mouth daily. Active docusate sodium (COLACE) 100 mg capsule Take 2 capsules (200 mg total) by mouth in the morning and 2 capsules (200 mg total) before bedtime. Active fluticasone propionate (FLONASE) 50 mcg/actuation nasal spray Administer 1 spray into each nostril daily. Active magnesium oxide (MAG-OX) 400 mg tablet Take 1 tablet (400 mg total) by mouth in the morning and 1 tablet (400 mg total) before bedtime. Active polyethylene glycol (GLYCOLAX) 17 gram packet Take 17 g by mouth in the morning and 17 g before bedtime. Active zinc gluconate 50 mg tablet Take 50 mg by mouth daily. Active gtjrzxnu-uup-OM -lycopen-lutein 300-600-300 mcg tablet Take 1 tablet by mouth daily. Centrum silver 50+ mens Active glucosamine/D3/ boswellia onur (OSTEO BI-FLEX, 5-LOXIN, ORAL) Take 1 tablet by mouth daily. Active magnesium hydroxide (MILK OF MAGNESIA) 400 mg/5 mL suspension Take 30 mL by mouth daily as needed. Active senna (SENOKOT) 8.6 mg tablet Take 1 tablet (8.6 mg total) by mouth in the morning. 30 tablet 03/14/20 Active insulin lispro (HumaLOG) 100 unit/mL insulin pen Inject 2-10 Units under the skin in the morning and 2-10 Units at noon and 2-10 Units in the evening. Inject with meals. 15 mL 06/01/20 Active insulin lispro (HumaLOG) 100 unit/mL insulin pen Inject 2-8 Units under the skin nightly. 15 mL 06/01/20 22 Active acetaminophen (TYLENOL EXTRA STRENGTH) 500 mg tablet Take 2 tablets (1,000 mg total) by mouth every 6 (six) hours as needed for pain. Active bisacodyL (DULCOLAX) 10 mg suppository Insert 1 suppository (10 mg total) into the rectum daily as needed for constipation. Active insulin lispro (HumaLOG) 100 unit/mL injection Inject as per sliding scale: if 150 - 200 = 2 units; 201 - 250 = 4 units; 251 - 300 = 6 units; 301 - 350 = 8 units; 351 - 400 = 10 units >400 call MD, subcutaneously before meals related to TYPE 2 DIABETES MAYA Active ascorbic acid, vitamin C, (VITAMIN C) 1000 mg tablet Take 1 tablet (1,000 mg total) by mouth in the morning. 30 tablet 06/26/20 Active aspirin 81 mg Take 1 tablet (81 mg total) by mouth in the morning. 30 tablet 06/26/20 Active atorvastatin (LIPITOR) 20 mg tablet Take 1 tablet (20 mg total) by mouth nightly. 30 tablet 06/26/20 Active celecoxib (CeleBREX) 100 mg capsule Take 1 capsule (100 mg total) by mouth in the morning. 30 capsule 06/26/20 Active donepeziL (ARICEPT) 5 mg tablet Take 1 tablet (5 mg total) by mouth nightly. 30 tablet 06/26/20 Active ferrous sulfate 325 (65 FE) mg tablet Take 1 tablet (325 mg total) by mouth daily with breakfast. 30 tablet 06/26/20 Active furosemide (LASIX) 40 mg tablet Take 1 tablet (40 mg total) by mouth daily. 30 tablet 06/26/20 Active montelukast (SINGULAIR) 10 mg tablet Take 1 tablet (10 mg total) by mouth in the morning. 30 tablet 06/26/20 Active pantoprazole (PROTONIX) 40 mg EC tablet Take 1 tablet (40 mg total) by mouth in the morning and 1 tablet (40 mg total) before bedtime. 30 tablet 06/26/20 Active rOPINIRole (REQUIP) 1 mg tablet Take 1 tablet (1 mg total) by mouth in the morning and 1 tablet (1 mg total) before bedtime. 60 tablet 06/26/20 Active sertraline (ZOLOFT) 25 mg tablet Take 2 tablets (50 mg total) by mouth once daily at bedtime. 30 tablet 06/26/20 Active Additional Information Patient taking differently:50 mg oralDaily, Reported on 02/19/2023 sucralfate (CARAFATE) 1 gram tablet Take 1 tablet (1 g total) by mouth in the morning and 1 tablet (1 g total) at noon and 1 tablet (1 g total) in the evening and 1 tablet (1 g total) before bedtime. Active ondansetron (ZOFRAN) 4 mg tablet Take 1 tablet (4 mg total) by mouth every 8 (eight) hours as needed for nausea or vomiting. Active budesonide-form oteroL (SYMBICORT) 160-4.5 mcg/actuation inhaler Inhale 2 puffs in the morning and 2 puffs before bedtime. Active ezetimibe (ZETIA) 10 mg tablet Take 1 tablet (10 mg total) by mouth in the morning. Active tamsulosin (FLOMAX) 0.4 mg capsule Take 1 capsule (0.4 mg total) by mouth nightly. Active albuterol (PROVENTIL,VENT PAOLO) 2.5 mg /3 mL (0.083 %) nebulizer solution Inhale 3 mL (2.5 mg total) by nebulization every 6 (six) hours. Active nitroglycerin (NITROSTAT) 0.[address] 1 tablet (0.4 mg total) under the tongue every 5 (five) minutes as needed for chest pain. Active sodium chlor-hypochlor ous acid (VASHE WOUND THERAPY) 0.033 % irrigation solution irrigation solution Irrigate with 1 application. as directed once. Apply to bilateral leg wounds every other day Active oxyCODONE (ROXICODONE) 5 mg immediate release tablet Take 1 tablet (5 mg total) by mouth every 6 (six) hours. Max Daily Amount: 20 mg Active gabapentin (NEURONTIN) 100 mg capsule Take 1 capsule (100 mg total) by mouth 3 (three) times a day. Active tiZANidine (ZANAFLEX) 4 mg tablet Take 1 tablet (4 mg total) by mouth every 6 (six) hours as needed for muscle spasms. Active menthol-zinc oxide (CALMOSEPTINE) 0.44-20.6 % ointmentIndicat ions:skin irritation Apply 1 Application topically 2 (two) times a day as needed (may substitute with Desitin/ OTC Zinc oxide preparations) Indications: skin irritation. 71 g 02/27/20 23 Active zinc oxide 4 X 10 -yard bandage Apply 1 each topically every 7 days. Apply 1 to left lower and 1 to right lower extremities every 7 days 12 each 1 02/27/20 23 Active sodium chloride 0.9 % injection Infuse 3 mL into a venous catheter as needed for line care (before and after each intermittent use). 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 12/09/2021 Acute on chronic combined sy stolic (congestive) and diastolic (congestive) heart failure 12/09/2021 Morbid (severe) obesity due to excess calories 0 12/09/2021 Upper GI bleed 11/13/2021 Generalized weakness 12/16/2020 Type 2 diabetes mellitus with complication 07/21 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 07/21/2020 Obesity (BMI 30-39.9) 12/23/2019 Chronic venous hypertension with ulcer 7 Edema extremities 10/10/2017 Overview (08/19/2019): 08/19 regulatory import Osteomyelitis of ankle or foot 11/01/2016 Venous insufficiency of left leg 10/19/2014 Venous stasis ulcer of ankle 10/19/2014 Venous insufficiency of right leg 10/19/2014 Venous stasis ulcer of right lower extremity 11/2013 Coronary artery disease 08/27/2013 Diabetes mellitus 08/27/2013 Osteoarthritis 08/27/2013 Anemia 08/18/2013 Deep vein thrombosis 10/05/2010 Obstructive sleep apnea syndrome 03/30/2009 Benign essential hypertension 03/19/2008 Type 2 diabetes mellitus 02/27/2007 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 10/04/2006 Pure hypercholesterolemia 10/04/2006 Goiter Resolved Problems Problem Noted Date Diagnosed Date Resolved Date Venous ulcer 10/10/2017 01/30/2018 Diabetes 06/16/2015 01/30/2018 Ulcer 08/27/2013 07/24/2018 Encounters Date Type Department Care Team Description 04/19/2025 3:19 PM EDT - 04/19/2025 7:01 PM EDT Emergency [facility] - Emergency [address] [place] [id number] Isaías Ireland MD Prolonged Q-T interval on ECG (Primary Dx); Dyspnea, unspecified type Discharge Disposition: Home 04/19/2025 Travel 03/19/2025 9:26 AM EDT - 03/19/2025 12:33 PM EDT Emergency [facility] - Emergency [address] [place] [address] Arie Josue DO Chronic wound (Primary Dx) Discharge Disposition: Home 03/19/2025 Travel from Last 3 Months Immunizations Immunization Administration Dates Next Due Influenza High Dose Preserva tive Free IM 09/02/2020,09/26/2018,08/15/2016,08/03,08/18/2014 Influenza, High-dose, Quadrivalent 09/14/2021 Influenza, Injectable, quadr ivalent (PF) 10/05/2019,08/15/2017 Influenza, Unspecified 08/15/2017,2015,08/03/2015,08/18 Pneumococcal Conjugate 13-Valent 08/26/2013 Pneumococcal Polysaccharide 08/19/2008 Pneumococcal, Unspecified 08/19/2008 Td, Unspecified 08/11/2009 Zoster Live 04/17/2014 Family History Medical History Relation Name Comments No Known Problems Father No Known Problems Mother Relation Name Status Comments Father Mother Social History Tobacco Use Types Packs/Day Years [...] Recorded Do you need help finding a [employer] career center and/or a training program? No [...] Mass Index 22.96 04/19/2025 3:22 PM EDT Plan of Treatment Health Maintenance Due Date Last Done Comments Depression Screening 1952 Fall Risk Screening 2007 DTaP,Tdap and Td Vaccines (1 - Tdap) 08/12/2009 08/11/2009 Zoster (Shingles) Vaccine (2 of 3) 06/12/2014 04/17/2014 COVID-19 Vaccine (3 - 2023-2 5 season) 2024 03/01/2021, 01/25/2021 Influenza Vaccine 07/20/2025 11/23/2023, , 09/02/2020, Additional history exists Tobacco Screening 03/19/2026 03/19/2025 Goals Goal Patient Goal Type Associated Problems Recent Progress Patient-Stated? Author <enter goal here> General Yes Barbara Hodges, TOBACCO BLENDER Note: Evaluation of progress towards goal: SNF Medical Devices Not on file Procedures Procedure Name Priority Date/Time Associated Diagnosis Comments TROP I, HIGH SENSITIVITY 1 HOUR STAT 04/19/2025 5:13 PM EDT XR CHEST 2 VWS STAT 04/19/2025 4:08 PM EDT EXTRA TUBES BLUE TOP Routine 04/19/2025 4:07 PM EDT EXTRA TUBES Routine 04/19/2025 4:07 PM EDT TROPONIN I, HIGH SENSITIVITY 0 HOUR STAT 04/19/2025 4:07 PM EDT TROPONIN I, HIGH SENSITIVITY 0 HOUR STAT 04/19/2025 4:07 PM EDT B-TYPE NATRIURETIC PEPTIDE STAT 04/19/2025 4:07 PM EDT BASIC METABOLIC PANEL STAT 04/19/2025 4:07 PM EDT CBC WITH AUTO DIFFERENTIAL STAT 04/19/2025 4:07 PM EDT SARS/FLU A+B/RSV BY NAAT/MOLECULAR (M4RT COLLECTION TUBE) STAT 04/19/2025 3:50 PM EDT ECG 12-LEAD STAT 04/19/2025 3:24 PM EDT XR PELVIS 1 OR 2 VWS STAT 03/19/2025 11:45 AM EDT TROP I, HIGH SENSITIVITY 1 HOUR STAT 03/19/2025 10:59 AM EDT ECG 12-LEAD STAT 03/19/2025 10:12 AM EDT XR CHEST 1 VW STAT 03/19/2025 10:01 AM EDT TROPONIN I, HIGH SENSITIVITY 0 HOUR STAT 03/19/2025 9:54 AM EDT TROPONIN I, HIGH SENSITIVITY 0 HOUR STAT 03/19/2025 9:54 AM EDT COMPREHENSIVE METABOLIC PANEL STAT 03/19/2025 9:54 AM EDT CBC WITH AUTO DIFFERENTIAL STAT 03/19/2025 9:54 AM EDT SARS/FLU A+B/RSV BY NAAT/MOLECULAR (M4RT COLLECTION TUBE) STAT 03/19/2025 9:52 AM EDT from Last 3 Months Results * Troponin I, High Sensitivity 1 Hour (04/19/2025 5:13 PM EDT) Only the most recent of2 resultswithin the time period is included. TROPONIN I, HIGH SENSITIVITY 6 <21 ng/L 04/19/2025 5:53 PM EDT [facility] Blood Venous blood / Unknown 04/19/2025 5:13 PM EDT 04/19/2025 5:21 PM EDT us Isaías Ireland MD LAB BLOOD ORDERABLES Final Resu lt [facility] [address] [place] [address], [place] * X-ray chest 2 views (04/19/2025 [...] DIAGNOSTIC IMAGING ORDERABL ES Final Result * Troponin I, High Sensitivity 0 Hour (04/19/2025 4:07 PM EDT) Only the most recent of2 resultswithin the time period is included. TROPONIN I, HIGH SENSITIVITY 7 <21 ng/L 04/19/2025 5:07 PM EDT [facility] Blood Venous blood / Unknown 04/19/2025 4:07 PM EDT 04/19/2025 4:32 PM EDT Isaías Ireland MD LAB BLOOD ORDERABLES Final Resu lt Performing Organization Address City/[facility]/ZIP Co de Phone Number [address] [place] [address], [place] * Light Blue Top (04/19/2025 4:07 PM EDT) Extra Tube Auto Resulted 04/19/2025 6:02 PM EDT [facility] Blood Venous blood / Unknown 04/19/2025 4:07 PM EDT 04/19/2025 4:33 PM EDT us Isaías Ireland MD LAB BLOOD ORDERABLES Final Resu lt Performing Organization Address City/[facility]/ZIP Co de Phone Number [address] [place] [address], [place] * (ABNORMAL) CBC auto differential (04/19/2025 4:07 PM EDT) Only the most recent of2 resultswithin the time period is included. WBC 11.5(H) 4 - 11 x10E9/L 04/19/2025 4:41 PM EDT [facility] RBC Count 4.92 4.1 - 5.7 X10E12/L 04/19/2025 4:41 PM EDT [facility] Hemoglobin 14.4 13 - 17 g/dL 04/19/2025 4:41 PM EDT [facility] Hematocrit 44.6 39 - 50 % 04/19/2025 4:41 PM EDT [facility] MCV 91 80 - 100 fL 04/19/2025 4:41 PM EDT [facility] MCH 29.3 27 - 34 pg 04/19/2025 4:41 PM EDT [facility] MCHC 32.3 32 - 36 g/dL 04/19/2025 4:41 PM EDT [facility] RDW 18.5(H) 11.5 - 15 % 04/19/2025 4:41 PM EDT [facility] Platelet Count 504(H) 150 - 450 X10E9/L 04/19/2025 4:41 PM EDT [facility] MPV 8.7 7 - 12 fL 04/19/2025 4:41 PM EDT [facility] Neutrophils Relative 61.3 % 04/19/2025 4:41 PM EDT [facility] Lymphocytes Relative 30.6 % 04/19/2025 4:41 PM EDT [facility] Monocytes Relative 7.3 % 04/19/2025 4:41 PM EDT [facility] Eosinophils Relative 0.4 % 04/19/2025 4:41 PM EDT [facility] Basophils Relative 0.4 % 04/19/2025 4:41 PM EDT [facility] Neutrophils Absolute (A) 7.1(H) 1.5 - 6.6 10*3/uL 04/19/2025 4:41 PM EDT [facility] Lymphocytes Absolute 3.5 1.0 - 3.5 10*3/uL 04/19/2025 4:41 PM EDT [facility] Monocytes Absolute 0.8 0.0 - 0.9 10*3/uL 04/19/2025 4:41 PM EDT [facility] Eosinophils Absolute 0.0 0.0 - 0.4 10*3/uL 04/19/2025 4:41 PM EDT [facility] Basophils Absolute 0.0 0.0 - 0.2 10*3/uL 04/19/2025 4:41 PM EDT [facility] Differential Type AUTOMATED DIFFERENTIAL 04/19/2025 4:41 PM EDT [facility] Blood Venous blood / Unknown 04/19/2025 4:07 PM EDT 04/19/2025 4:32 PM EDT us Isaías Ireland MD LAB BLOOD ORDERABLES Final Resu lt Performing Organization Address City/[facility]/ZIP Co de Phone Number [address] [place] [address], [place] * B-type natriuretic peptide (04/19/2025 4:07 PM EDT) BNP 27 <=100 pg/mL 04/19/2025 5:12 PM EDT [facility] Blood Venous blood / Unknown 04/19/2025 4:07 PM EDT 04/19/2025 4:32 PM EDT us Isaías Ireland MD LAB BLOOD ORDERABLES Final Resu lt Performing Organization Address City/[facility]/ZIP Co de Phone Number [address] [place] [address], [place] * (ABNORMAL) Basic Metabolic Panel (04/19/2025 4:07 PM EDT) SODIUM 138 134 - 146 mmol/L 04/19/2025 4:55 PM EDT [facility] POTASSIUM 3.7 3.5 - 5.0 mmol/L 04/19/2025 4:55 PM EDT [facility] CHLORIDE 93(L) 98 - 109 mmol/L 04/19/2025 4:55 PM EDT [facility] CARBON DIOXIDE 33(H) 22 - 32 mmol/L 04/19/2025 4:55 PM EDT [facility] ANION GAP 12 5 - 15 mmol/L 04/19/2025 4:55 PM EDT [facility] BLOOD UREA NITROGEN 19 5 - 27 mg/dL 04/19/2025 4:55 PM EDT [facility] CREATININE 0.97 0.70 - 1.20 mg/dL 04/19/2025 4:55 PM EDT [facility] Comment:METHOD TRACEABLE TO IDMS STANDARD GLUCOSE 131(H) 65 - 99 mg/dL 04/19/2025 4:55 PM EDT [facility] CALCIUM 9.0 8.5 - 10.5 mg/dL 04/19/2025 4:55 PM EDT [facility] EGFR Non-Race Dependent 78 >=60 ml/min/1.7 3sq.m 04/19/2025 4:55 PM EDT [facility] Comment: eGFR not reported due to non-numeric value for Creatinine. Reported eGFR is based on the CKD-EPI 2020 equation that does not use a race coefficient. Blood Venous blood / Unknown 04/19/2025 4:07 PM EDT 04/19/2025 4:32 PM EDT us Isaías Ireland MD LAB BLOOD ORDERABLES Final Resu lt [facility] [address] [place] [address], [place] * SARS/FLU A+B/RSV by NAAT/Molecular (M4RT Collection Tube) (04/19/2025 3:50 PM EDT) Only the most recent of2 resultswithin the time period is included. FLU A PCR Negative Negative 04/19/2025 5:12 PM EDT [facility] FLU B PCR Negative Negative 04/19/2025 5:12 PM EDT [facility] RSV BY PCR Negative Negative 04/19/2025 5:12 PM EDT [facility] SARS COV 2 BY PCR Not Detected Not Detected 04/19/2025 5:12 PM EDT [facility] Swab Nasopharyngeal structure / Unknown 04/19/2025 3:50 PM EDT 04/19/2025 4:34 PM EDT Narrative [facility] - 04/19/2025 5:12 PM EDT The [...] operators who are performing tests using either [employer] or [employer] systems and is limited to laboratories that [...] specimen repeat. Fact Sheet for Healthcare Providers: https://www.fda.gov/media/944819/download Fact Sheet for Patients: https://www.fda.gov/media/221328/download Isaías Ireland MD MICROBIOLOGY - GENERAL ORDERABL ES Final Result Performing Organization Address [facility] Co de Phone Number [facility] [address] [place] [address], * ECG 12 lead (04/19/2025 3:24 PM EDT) Only the most recent of2 resultswithin the time period is included. 04/19/2025 3:24 PM EDT Isaías Ireland MD ECG ORDERABLES Final Result Performing Organization Address [facility] Co de Phone Number [email or web address] * X-ray pelvis 1 or 2 views (03/19/2025 11:45 AM EDT) Anatomical Region Laterality Modality MSK, Pelvis N/A Computed Radiogr aphy 03/19/2025 11:4 6 AM EDT Narrative 03/19/2025 11:48 AM EDT History: sacral wound, eval for obvoius osteo Exam/Technique: AP view. Comparison: 05/26/2022. Findings: Severe osteopenia and fecal loading compromises evaluation of the sacral and coccygeal region. There is degenerative changes in the lower lumbar spine and hip joints. There are no destructive changes around the initial tuberosities of the visualized femur bilaterally. [Distended bowel loops gas-filled in the abdomen with fecal loading noted. IMPRESSION: There are no obvious destructive changes of the pubic bones initial tuberosity and femoral heads. The sacrococcygeal region cannot be adequately evaluated on this study. May require CT imaging study for further assessment. Finalized by Km Duffy MD on 03/19/2025 11:48 AM Procedure Note Km Duffy MD - 03/19/2025 History: sacral wound, eval for obvoius osteo Exam/Technique: AP view. Comparison: 05/26/2022. Findings: Severe osteopenia and fecal loading compromises evaluation ofthe sacral and coccygeal region. There is degenerative changes in the lower lumbar spine and hip joints. There are no destructive changes around the initial tuberosities of thevisualized femur bilaterally. [Distended bowel loops gas-filled in the abdomen with fecal loadingnoted. IMPRESSION: There are no obvious destructive changes of the pubic bonesinitial tuberosity and femoral heads. The sacrococcygeal region cannot beadequately evaluated on this study. May require CT imaging study forfurther assessment. Finalized by Km Duffy MD on 03/19/2025 11:48 AM Arie Josue DO [facility] DIAGNOSTIC IMAGING ORDER MICKIE Final Result * X-ray chest 1 view (03/19/2025 10:01 AM EDT) Anatomical Region Laterality Modality Body, Chest N/A Computed Radiogr aphy 03/19/2025 10:0 4 AM EDT Narrative 03/19/2025 10:07 AM EDT Portable chest: HISTORY: Cough. Single view of the chest was obtained and compared to prior exam of 02/24/2023. Elevation of left hemidiaphragm is unchanged. Pulmonary vasculature appears mildly congested. There is no new consolidation. No pneumothorax identified. IMPRESSION: Vascular congestion and left hemidiaphragm elevation, unchanged. Finalized by Daniel Limon MD on 03/19/2025 10:07 AM Procedure Note Daniel Limon MD - 03/19/2025 Portable chest: HISTORY: Cough. Single view of the chest was obtained and compared to prior exam of02/24/2023. Elevation of left hemidiaphragm is unchanged. Pulmonaryvasculature appears mildly congested. There is no new consolidation. Nopneumothorax identified. IMPRESSION: Vascular congestion and left hemidiaphragm elevation, unchanged. Finalized by Daniel Limon MD on 03/19/2025 10:07 AM Arie Josue DO IMG DIAGNOSTIC IMAGING ORDER MICKIE Final Result * (ABNORMAL) Comprehensive metabolic panel (03/19/2025 9:54 AM EDT) SODIUM 139 134 - 146 mmol/L 03/19/2025 10:20 AM EDT [facility] POTASSIUM 3.7 3.5 - 5.0 mmol/L 03/19/2025 10:20 AM EDT [facility] CHLORIDE 99 98 - 109 mmol/L 03/19/2025 10:20 AM EDT [facility] CARBON DIOXIDE 28 22 - 32 mmol/L 03/19/2025 10:20 AM EDT [facility] ANION GAP 12 5 - 15 mmol/L 03/19/2025 10:20 AM EDT [facility] BLOOD UREA NITROGEN 13 5 - 27 mg/dL 03/19/2025 10:20 AM EDT [facility] CREATININE 0.85 0.70 - 1.20 mg/dL 03/19/2025 10:20 AM EDT [facility] Comment:METHOD TRACEABLE TO IDMS STANDARD GLUCOSE 300(H) 65 - 99 mg/dL 03/19/2025 10:20 AM EDT [facility] CALCIUM 9.1 8.5 - 10.5 mg/dL 03/19/2025 10:20 AM EDT [facility] TOTAL PROTEIN 7.2 6.0 - 8.0 g/dL 03/19/2025 10:20 AM EDT [facility] ALBUMIN 3.0(L) 3.2 - 5.3 g/dL 03/19/2025 10:20 AM EDT [facility] ALKALINE PHOSPHATASE 104 39 - 130 U/L 03/19/2025 10:20 AM EDT [facility] AST 23 <=41 U/L 03/19/2025 10:20 AM EDT [facility] ALT 10 <=40 U/L 03/19/2025 10:20 AM EDT [facility] BILIRUBIN,TOTAL 0.4 0.3 - 1.2 mg/dL 03/19/2025 10:20 AM EDT [facility] EGFR Non-Race Dependent 87 >=60 ml/min/1.7 3sq.m 03/19/2025 10:20 AM EDT [facility] Comment: eGFR not reported due to non-numeric value for Creatinine. Reported eGFR is based on the CKD-EPI 2020 equation that does not use a race coefficient. Blood Venous blood / Unknown 03/19/2025 9:54 AM EDT 03/19/2025 9:57 AM EDT us Arie Josue DO LAB BLOOD ORDERABLES Final R esult Performing Organization Address City/State/[facility] Co de Phone Number [facility] [address] [place] [address], from Last 3 Months Additional Health Concerns Infection Onset Date Last Indicated CRE 09/04/2018 09/04/2018 Insurance [facility] MEDICARE Advance Directives Documents on File Type Date Recorded Patient Etch [employer] Expl anation Advance Directive 03/19/2025 9:24 AM DNR Co mfort Care 03/19/25 Living Will 12/23/2020 1:41 PM Durable Power of Benefits Assistant 12/23/2020 1:41 PM * Full Code (Latest Code Status on File) Date Activated Date Inactivated Comments 02/19/2023 2:46 PM 02/26/2023 10:26 PM * Full Code Date Activated Date Inactivated Comments 05/26/2022 8:03 AM 06/01/2022 6:52 PM * Full Code Date Activated Date Inactivated Comments 11/13/2021 1:38 AM 11/24/2021 6:40 PM * Full Code Date Activated Date Inactivated Comments 12/16/2020 4:41 PM 12/21/2020 3:53 PM Healthcare Agents on File Name Relationship Healthcare Agent Relationshi p Communication Elis Cowart Daughter Health Care Agent Care Teams Center Medical Director Relationship Specialty Start Date End Date Carla Tucker [facility] [address] [place] [address] PCP - General Family Medicine 04/19/25
--- OUTSIDE RECORDS SUMMARY | 2025-04-22 13:50 | XMS_ITS ---
Author Organization [facility] Care Team Providers Care Redeye Gunner Name Role Phone Tim Smith Unavailable Unavailable Reed Dominguez Jr Unavailable Unavailable Reed Dee Unavailable Unavailable Olesya Singh Unavailable Unavailpanda e Allergies and adverse reactions Code CodeSystem Substance Reaction Severity StartDate Concern Status tape adherant Unknown 09/19/[address] Sulfa Antibiotics Unknown 10/25/[address] Statins Unknown 11/03/2021 active 8536 RXNORM Polymyxin B Unknown 09/19/2016 active 7984 RXNORM Penicillin Unknown 09/19/2016 active Latex Unknown 09/19/2016 active IVP dye Unknown 09/19/2016 active 7213 RXNORM Ipratropium Unknown 11/03/2021 active iodine containing Unknown 09/19/2016 act nils 5489 RXNORM Hydrocodone Unknown 10/26/2016 active 3264 RXNORM Dexamethasone Unknown 10/25/2016 active Decadron Unknown 09/19/2016 active Daypro Unknown 09/19/2016 active 2551 RXNORM Ciprofloxacin Unknown 10/25/2016 active 2231 RXNORM Cephalexin Unknown 11/03/2021 active Celebrex Unknown 10/25/2016 active Betadine Unknown 09/19/2016 active Bactrim Unknown 10/25/2016 active 723 RXNORM Amoxicillin Unknown 10/25/2016 active 435 RXNORM Albuterol Unknown 11/03/2021 active Care Team Name Role Address Phone Organization Dates Reed Dominguez Jr [facility] [address] [place], [address], [facility] (Office): : : - (Pager): [facility] 02/26/2023 - 03/17/2023 Tim Nicholekevin [address], [place], [address], [facility] (Office): [facility] 02/26/2023 - 03/17/2023 Reedlacie Dee [address], [place], [address], [facility] (Office): [facility] 02/26/2023 - 03/17/2023 Olesya Singh [address] [place] [address], [address], [facility] (Cell): [facility] 02/26/2023 - 03/17/2023 Immunizations Immunization Status Vaccine Details Vaccine Code CodeSystem Date Notes Influenza completed Influenza, high-dose, split virus, quadrivalent, injectable, preservative free Given 0.7 ml Left Deltoid intramuscularly 197 CVX created date: 2 consent date: 2 administe red date: 1 Influenza completed Influenza, high-dose, split virus, quadrivalent, injectable, preservative free Given Right Deltoid intramuscularly 197 CVX created date: 2 administe red date: 0 TB 1 Step Mantoux (PPD) completed tuberculin skin test; unspecified formulation lotNumber: [id number] expiry: 10/19/2017 Mfg: [employer] Given 0.1 ml Left Forearm intradermally 98 CVX created date: 6 consent date: 6 administe red date: 6 TB 1 Step Mantoux (PPD) completed tuberculin skin test; unspecified formulation lotNumber: [id number] expiry: 11/18/2017 Mfg: [employer] Given 0.1 ml Right Forearm intradermally 98 CVX created date: 6 consent date: 6 administe red date: 6 Educated by Cailin Yoder on 09/19/2016 TB 2 Step Mantoux Skin Test completed tuberculin skin test; unspecified formulation Given 0.1 ml Right Forearm intradermally Step 2 of Multi-step with next step required 98 CVX created date: 3 consent date: 3 administe red date: 3 Read on 03/08/23 by Supa Botello per [facility] TB 2 Step Mantoux Skin Test completed tuberculin skin test; unspecified formulation lotNumber: [id number] expiry: 03/19/2024 Mfg: [employer] Given 0.5 ml Right Forearm intradermally Step 1 of Multi-step with next step required 98 CVX created date: 3 consent date: 3 administe red date: 3 TB 2 Step Mantoux Skin Test completed tuberculin skin test; unspecified formulation lotNumber: [id number] expiry: 10/18/2023 Mfg: [employer] Given 0.1 ml Left Forearm subcutaneously Step 2 of Multi-step with next step required 98 CVX created date: 2 consent date: 2 administe red date: 2 TB 2 Step Mantoux Skin Test completed tuberculin skin test; unspecified formulation lotNumber: [id number] expiry: 08/18/2022 Mfg: [employer] Given 0.1 ml Right Forearm intradermally Step 1 of Multi-step with next step required 98 CVX created date: 2 consent date: 2 administe red date: 2 Read by Iza Gillespie on 06/04/22 per MAR TB 2 Step Mantoux Skin Test completed tuberculin skin test; unspecified formulation lotNumber: [id number] expiry: 07/20/2022 Mfg: [employer] Given 0.1 ml Right Forearm intradermally Step 2 of Multi-step with next step required 98 CVX created date: 2 consent date: 2 administe red date: 2 TB 2 Step Mantoux Skin Test completed tuberculin skin test; unspecified formulation lotNumber: [id number] expiry: 07/20/2022 Mfg: [employer] Given 0.1 ml Right Forearm intradermally Step 1 of Multi-step with next step required 98 CVX created date: 2 consent date: 2 administe red date: 2 TB 2 Step Mantoux Skin Test completed tuberculin skin test; unspecified formulation Given 0.1 ml Right Forearm intradermally Step 2 of Multi-step with next step required 98 CVX created date: 2 consent date: 2 administe red date: 2 Read by Melissa Segovia on 12/03/21 per MAR TB 2 Step Mantoux Skin Test completed tuberculin skin test; unspecified formulation lotNumber: [id number] expiry: 08/19/2022 Mfg: [employer] Given 0.1 ml Left Forearm intradermally Step 1 of Multi-step with next step required 98 CVX created date: 2 consent date: 2 administe red date: 2 TB 2 Step Mantoux Skin Test completed tuberculin skin test; unspecified formulation Given 0.1 ml Right Forearm intradermally Step 2 of Multi-step with next step required 98 CVX created date: 1 consent date: 1 administe red date: 1 Discharged to Hospital before 2nd TB could be read TB 2 Step Mantoux Skin Test completed tuberculin skin test; unspecified formulation lotNumber: [id number] expiry: 08/19/2022 Mfg: [employer] Given 0.1 ml Left Forearm intradermally Step 1 of Multi-step with next step required 98 CVX created date: 1 consent date: 1 administe red date: 1 SARS-COV-2 (COVID-19) completed SARS-COV-2 (COVID-19) vaccine, mRNA, spike protein, LNP, preservative free, 30 mcg/0.3mL dose Step 2 of Multi-step with next step required 208 CVX created date: 1 administe red date: 1 SARS-COV-2 (COVID-19) completed SARS-COV-2 (COVID-19) vaccine, mRNA, spike protein, LNP, preservative free, 30 mcg/0.3mL dose Step 1 of Multi-step with next step required 208 CVX created date: 1 administe red date: 1 Prevnar 13 completed pneumococcal conjugate vaccine, 13 valent Given intramuscularly 133 CVX created date: 2 administe red date: 3 PPSV 23 completed pneumococcal polysaccharide vaccine, 23 valent 33 CVX created date: 2 administe red date: 8 Per CRF Zoster (shingles) completed zoster vaccine, live 121 CVX created date: 2 consent date: 2 administe red date: 4 Tdap completed tetanus and diphtheria toxoids, not adsorbed, for adult use 138 CVX created date: 2 administe red date: 9 Mental Status Section Date Assessment Total Score Description 03/17/2023 BIMS 06 severe cognitiv e impairment CAM 0 No delirium ind icated PHQ-9 00 03/05/2023 BIMS 08 moderate cognit nils impairment CAM 0 No delirium ind icated PHQ-9 09 mild depression Problems Problem # Description Date of onset Resolved Date Code CodeSystem Concern Status 1 IMPINGEMENT SYNDROME OF RIGHT SHOULDER [address] active 2 UNSPECIFIED DEMENTIA, SEVERE, WITH AGITATION [address] active 3 BODY MASS INDEX [BMI]30.0-30.9, ADULT [address] active 4 OBESITY, UNSPECIFIED [address] active 5 MUSCLE WEAKNESS (GENERALIZED) [address] active 6 NEED FOR ASSISTANCE WITH PERSONAL CARE [address] active 7 OTHER FATIGUE [address] active 8 UNSPECIFIED LACK OF COORDINATION [address] active 9 ABNORMAL FINDINGS ON DIAGNOSTIC IMAGING OF LIVER AND BILIARY TRACT [address] active 10 ANXIETY DISORDER, UNSPECIFIED [address] active 11 UNILATERAL INGUINAL HERNIA, WITHOUT OBSTRUCTION OR GANGRENE, NOT SPECIFIED RECURRENT [address] active 12 VITAMIN D DEFICIENCY, UNSPECIFIED [address] active 13 BODY MASS INDEX [BMI] 29.0-29.9, ADULT 02/22/[address] completed 14 DIFFICULTY IN WALKING, NOT ELSEWHERE CLASSIFIED 06/22/[address] completed 15 MUSCLE WEAKNESS (GENERALIZED) 022 06/22/[address] completed 16 NEED FOR ASSISTANCE WITH PERSONAL CARE 022 06/22/[address] completed 17 REPEATED FALLS 022 06/22/[address] completed 18 CHRONIC COMBINED SYSTOLIC (CONGESTIVE) AND DIASTOLIC (CONGESTIVE) HEART FAILURE 937015626137472 SNOMED CT active 19 HISTORY OF FALLING [address] active 20 CHCF (CURRENT) USE OF INSULIN [address] active 21 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 022 02/22/[address] completed 22 ESSENTIAL (PRIMARY) HYPERTENSION [address] active 23 PURE HYPERCHOLESTEROLEM IA, UNSPECIFIED [address] active 24 TYPE 2 DIABETES MELLITUS WITH OTHER CIRCULATORY COMPLICATIONS [address] active 25 TYPE 2 DIABETES MELLITUS WITH UNSPECIFIED COMPLICATIONS [address] active 26 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 02/22/[address] completed 27 BODY MASS INDEX [BMI] 26.0-26.9, ADULT 05/31/[address] completed 28 DIFFICULTY IN WALKING, NOT ELSEWHERE CLASSIFIED 05/30/[address] completed 29 MUSCLE WEAKNESS (GENERALIZED) 05/30/[address] completed 30 OTHER FATIGUE 05/30/[address] completed 31 OTHER PROBLEMS RELATED TO LIFE MANAGEMENT DIFFICULTY 05/30/[address] completed 32 UNSPECIFIED LACK OF COORDINATION 05/30/[address] completed 33 NON-PRESSURE CHRONIC ULCER OF OTHER PART OF LEFT LOWER LEG WITH UNSPECIFIED SEVERITY 98550972154177496 SNOMED CT active 34 NON-PRESSURE CHRONIC ULCER OF OTHER PART OF RIGHT LOWER LEG WITH UNSPECIFIED SEVERITY 38147469614977858 SNOMED CT active 35 BODY MASS INDEX [BMI] 27.0-27.9, ADULT 01/18/[address] completed 36 LOCAL INFECTION OF THE SKIN AND SUBCUTANEOUS TISSUE, UNSPECIFIED 022 12/16/[address] completed 37 CELLULITIS OF LEFT LOWER LIMB 12/16/[address] completed 38 CELLULITIS OF RIGHT LOWER LIMB 022 12/16/[address] completed 39 COGNITIVE COMMUNICATION DEFICIT 02/21/[address] completed 40 DYSPHAGIA, UNSPECIFIED 05/31/[address] completed 41 BODY MASS INDEX [BMI] 29.0-29.9, ADULT 12/18/[address] completed 42 UNSPECIFIED DEMENTIA, UNSPECIFIED SEVERITY, WITHOUT BEHAVIORAL DISTURBANCE, PSYCHOTIC DISTURBANCE, MOOD DISTURBANCE, AND ANXIETY 03/06/[address] completed 43 OLD MYOCARDIAL INFARCTION [address] active 44 OTHER DISEASES OF STOMACH AND DUODENUM 05/30/[address] completed 45 CHRONIC OBSTRUCTIVE PULMONARY DISEASE, UNSPECIFIED 15333059 SNOMED CT active 46 DIFFICULTY IN WALKING, NOT ELSEWHERE CLASSIFIED 01/17/[address] completed 47 MUSCLE WEAKNESS (GENERALIZED) 01/17/[address] completed 48 OTHER FATIGUE 01/17/[address] completed 49 OTHER PROBLEMS RELATED TO LIFE MANAGEMENT DIFFICULTY 01/17/[address] completed 50 UNSPECIFIED LACK OF COORDINATION 01/17/[address] completed 51 BODY MASS INDEX [BMI] 28.0-28.9, ADULT 11/24/[address] completed 52 CONSTIPATION, UNSPECIFIED 14263258 SNOMED CT active [address] active 54 IRON DEFICIENCY ANEMIA, UNSPECIFIED 19524949 SNOMED CT active 55 ACQUIRED ABSENCE OF OTHER SPECIFIED PARTS OF DIGESTIVE TRACT 39719891 SNOMED CT active 56 ACQUIRED ABSENCE OF SPLEEN 602682693177810 SNOMED CT active 57 ANXIETY DISORDER, UNSPECIFIED 06/01/[address] completed 58 DIVERTICULITIS OF INTESTINE, PART UNSPECIFIED, WITHOUT PERFORATION OR ABSCESS WITHOUT BLEEDING 01/17/[address] completed 59 LYMPHEDEMA, NOT ELSEWHERE CLASSIFIED 978994512 SNOMED CT active 60 NON-ST ELEVATION (NSTEMI) MYOCARDIAL INFARCTION 11/21/[address] completed 61 OTHER BACTERIAL INFECTIONS OF UNSPECIFIED SITE 11/02/[address] completed 62 PRESENCE OF AORTOCORONARY BYPASS GRAFT 017322274 SNOMED CT active 63 PRESENCE OF OTHER VASCULAR IMPLANTS AND GRAFTS [address] active 64 PSEUDOMONAS (AERUGINOSA) (MALLEI) (PSEUDOMALLEI) THE CAUSE OF DISEASES CLASSIFIED ELSEWHERE 021 11/23/[address] completed 65 SPONDYLOSIS, UNSPECIFIED [address] active 66 VENOUS INSUFFICIENCY (CHRONIC) (PERIPHERAL) [address] active 67 ABSCESS OF SPLEEN 016 11/02/[address] completed 68 HEART DISEASE, UNSPECIFIED [address] active 69 HYPERTENSIVE HEART DISEASE WITHOUT HEART FAILURE 016 05/31/[address] completed 70 OTHER DISORDERS OF LUNG [address] active 71 PERSONAL HISTORY OF OTHER VENOUS THROMBOSIS AND EMBOLISM 47929690 SNOMED CT active 72 TYPE 2 DIABETES MELLITUS WITH DIABETIC NEUROPATHY, UNSPECIFIED [address] active 73 UNSPECIFIED ABDOMINAL HERNIA WITHOUT OBSTRUCTION OR GANGRENE [address] active 74 UNSPECIFIED MACULAR DEGENERATION 419155871 SNOMED CT active 75 UNSPECIFIED RIGHT BUNDLE-BRANCH BLOCK 016 02/22/[address] completed 76 DIFFICULTY IN WALKING, NOT ELSEWHERE CLASSIFIED 11/02/[address] completed 77 CELLULITIS OF LEFT LOWER LIMB 11/02/[address] completed 78 CELLULITIS OF RIGHT LOWER LIMB 11/02/[address] completed 79 LOCAL INFECTION OF THE SKIN AND SUBCUTANEOUS TISSUE, UNSPECIFIED 11/23/[address] completed 80 STREPTOCOCCUS PNEUMONIAE THE CAUSE OF DISEASES CLASSIFIED ELSEWHERE 11/02/[address] completed 81 MUSCLE WEAKNESS (GENERALIZED) 11/02/[address] completed 82 ANEMIA, UNSPECIFIED 11/03/[address] completed 83 ATHEROSCLEROTIC HEART DISEASE OF [place] CORONARY ARTERY WITHOUT ANGINA PECTORIS 112527441870993 SNOMED CT active 84 BENIGN PROSTATIC HYPERPLASIA WITHOUT LOWER URINARY TRACT SYMPTOMS 042518056 SNOMED CT active 85 ESSENTIAL (PRIMARY) HYPERTENSION 016 10/31/[address] completed 86 GASTRO-ESOPHAGEAL REFLUX DISEASE WITHOUT ESOPHAGITIS 640593405 SNOMED CT active 87 HYPERLIPIDEMIA, UNSPECIFIED 016 01/22/[address] completed 88 MAJOR DEPRESSIVE DISORDER, SINGLE EPISODE, UNSPECIFIED 50181414 SNOMED CT active 89 NON-PRESSURE CHRONIC ULCER OF LEFT ANKLE WITH UNSPECIFIED SEVERITY 01/17/[address] completed 90 NON-PRESSURE CHRONIC ULCER OF RIGHT ANKLE WITH UNSPECIFIED SEVERITY 01/17/[address] completed 91 PERIPHERAL VASCULAR DISEASE, UNSPECIFIED 192580392 SNOMED CT active 92 RESTLESS LEGS SYNDROME 77134860 SNOMED CT active 93 TYPE 2 DIABETES MELLITUS WITH FOOT ULCER 02/21/[address] completed 94 UNSPECIFIED OSTEOARTHRITIS, UNSPECIFIED SITE 390463292 SNOMED CT active Reason for Referral No Reasons for Referral Entered Social History Social History Observation Description Start Date End Date Code Code System Current Smoking Status Tobacco smoking consumption unknown 318587674 SNOMED CT Sex Assigned At Male 1940 53354-6 [facility] Gender Identity Vital Signs Code Code System Vitals Name Values and Units Timing Information 08751-6 [facility] Pain Level Value=0.0 03/18/2023 2339-0 [facility] Blood Sugar Dqdab=650.0 Units=mg/dL 03/17/2023 9279-1 [facility] Respiratory Rate Value=18.0 Units=/m in 03/17/2023 8310-5 [facility] Body Temperature Value=98.0 Units= F 03/17/2023 8867-4 [facility] Heart rate Qziix=004.0 Units=/min 03/17/2023 85495-2 [facility] O2 % BldC Oximetry Value=98.0 Units= % 03/17/2023 8462-4 [facility] Blood Pressure-Diastolic Value=54 Un its=mmHg 03/17/2023 8480-6 [facility] Blood Pressure-Systolic Vgfzh=271 Un its=mmHg 03/17/2023 57964-3 [facility] Weight Xhqso=775.0 Units=Lbs 8302-2 [facility] Height Value=68.0 Units=Inches 03/01/2023
--- OUTSIDE RECORDS SUMMARY | 2025-04-22 13:50 | XMS_ITS | Encounter Summary ---
Author Organization [facility] Address [address] [place] [address] Care Team Providers Care Licensed Practical Nurse Instructor Name Role Phone Oxana Martinez MD Unavailable Oxana Martinez MD Primary Care Provider [phone] Perla Jones RN Unavailable [phone] Reason for Visit * Reason Comments Med Refill Encounter Details Date Type Department Care Team ([facility] Contact Info) Description 10/25/2023 Refill [facility] [address] [place] [id number] Oxana Martinez MD Dementia, unspecified dementia severity, unspecified dementia type, unspecified whether behavioral, psychotic, or mood disturbance or anxiety (CMS/HCC) (Primary Dx) Social History Tobacco Use Types [...] as of this encounter Visit Diagnoses Diagnosis Dementia, unspecified dementia severity, unspecified dementia type, unspecified whether behavioral, psychotic, or mood disturbance or anxiety ([facility])- Primary documented in this encounter Care Teams Licensed Practical Nurse Instructor Relationship Specialty Start Date End Date Oxana Martinez MD PCP - [employer] 11/19/17 Oxana Martinez MD PCP - General Family Medicine 03/27/23 Perla Jones, RN Registered Nurse Family Medicine 12/12/23 documented as of this encounter
--- OUTSIDE RECORDS SUMMARY | 2025-04-22 13:50 | XMS_ITS | Encounter Summary ---
Author Organization [facility] Address [address] [place] [address] Care Team Providers Care Hide Selector Name Role Phone Oxana Martinez MD Unavailable [phone] Oxana Martinez MD Primary Care Provider [phone] Perla Jones RN Unavailable [phone] Reason for Visit * Reason Comments Med Refill Encounter Details Date Type Department Care Team ([facility] Contact Info) Description 10/27/2023 Refill [facility] [address] [place] [id number] Oxana Martinez MD Gastro-esophageal reflux disease without esophagitis Social History Tobacco Use Types Packs/Day Years [...] Diagnoses Diagnosis Gastro-esophageal reflux disease without esophagitis documented in this encounter Care Teams Hide Selector Relationship Specialty Start Date End Date Oxana Martinez MD PCP - [employer] 11/19/17 Oxana Martinez MD PCP - General Family Medicine 03/27/23 Perla Jones, RN Registered Nurse Family Medicine 12/12/23 documented as of this encounter
--- OUTSIDE RECORDS SUMMARY | 2025-04-22 13:50 | XMS_ITS ---
Author Organization [facility] Address [address] [place] [address] Care Team Providers Care Impregnator Electrolytic Capacitors Name Role Phone Oxana Martinez MD Unavailable [phone] Oxana Martinez MD Primary Care Provider [phone] Perla Jones RN Unavailable [phone] Emergency Department Transitional Care Management (TCM) Status:Closed (Closed) Start date:04/19/2025 Enrollment reason:Identified using hospital discharge data End date:04/20/2025 Close reason:Actively enrolled in CCM Overview Discharged from [facility] ER on 04/19. Please contact within 2 days of discharge for ER JOHN and schedule a follow-up appointment if needed. Continued Care and Services Coordination
--- OUTSIDE RECORDS SUMMARY | 2025-04-22 13:50 | XMS_ITS | Encounter Summary ---
Author Organization [facility] Address [address] [place] [address] Care Team Providers Care Invoice Coder Name Role Phone Oxana Martinez MD Unavailable [phone] Oxana Martinez MD Primary Care Provider [phone] Perla Jones RN Unavailable [phone] Reason for Visit * Reason Comments Med Refill Encounter Details Date Type Department Care Team ([facility] Contact Info) Description 05/16/2024 Refill [facility] [address] [place] [address] Oxana Martinez MD Chronic obstructive pulmonary disease, unspecified COPD type (CMS/HCC) Social History Tobacco Use Types [...] of this encounter Visit Diagnoses Diagnosis Chronic obstructive pulmonary disease, unspecified COPD type (CMS/HCC) documented in this encounter Care Teams Invoice Coder Relationship Specialty Start Date End Date Oxana Martinez MD PCP - [employer] 11/19/17 Oxana Martinez MD PCP - General Family Medicine 03/27/23 Perla Jones, RN Registered Nurse Family Medicine 12/12/23 documented as of this encounter
--- OUTSIDE RECORDS SUMMARY | 2025-04-22 13:50 | XMS_ITS | Encounter Summary ---
Author Organization [facility] Address [address] [place] [address] Care Team Providers Care Statistics Manager Name Role Phone Oxana Martinez MD Unavailable [phone] Oxana Martinez MD Primary Care Provider [phone] Perla Jones RN Unavailable [phone] Reason for Visit * Reason Comments Med Refill Encounter Details Date Type Department Care Team ([facility] Contact Info) Description 08/24/2024 Refill [facility] [address] [place] [phone] Oxana Martinez MD Mixed hyperlipidemia (CMS/HCC) Social History Tobacco Use Types Packs/Day [...] as of this encounter Visit Diagnoses Diagnosis Mixed hyperlipidemia (CMS/HCC) Mixed hyperlipidemia documented in this encounter Care Teams Statistics Manager Relationship Specialty Start Date End Date Oxana Martinez MD PCP - [employer] 11/19/17 Oxana Martinez MD PCP - General Family Medicine 03/27/23 Perla Jones, RN Registered Nurse Family Medicine 12/12/23 documented as of this encounter
--- OUTSIDE RECORDS SUMMARY | 2025-04-22 13:50 | XMS_ITS ---
Author Organization [facility] Address [address] [place] [address] Care Team Providers Care Sprinkler Fitter Helper Name Role Phone Oxana Martinez MD Unavailable [phone] Oxana Martinez MD Primary Care Provider [phone] Perla Moss RN Unavailable [phone] Chronic Care Management (CCM) Status:Enrolled (Active) Start date:12/12/2023 Enrollment date:12/14/2023 Enrollment reason:Identified by Health Plan Overview Please assess for Care Management needs. 12/14/23, 1:21 PM - Perla Moss RN- Patient gives verbal consent to be enrolled in CCM Program and understands there could be a bill for this service. Case Team Name Relationship Phone Perla Moss RN(Responsible Staff) Registered Nurse [phone] Continued Care and Services Coordination
--- OUTSIDE RECORDS SUMMARY | 2025-04-22 13:50 | XMS_ITS | Encounter Summary ---
Author Organization [facility] Address [address] [place] [address] Care Team Providers Care Bread Supervisor Name Role Phone Oxana Martinez MD Unavailable [phone] Oxana Martinez MD Primary Care Provider [phone] Perla Jones RN Unavailable [phone] Reason for Visit * Reason Comments Med Refill Encounter Details Date Type Department Care Team ([facility] Contact Info) Description 03/01/2024 Refill [facility] [address] [place] [id number] Oxana Martinez MD Restless leg; Vitamin D deficiency Social History Tobacco Use Types Packs/Day Years [...] as of this encounter Visit Diagnoses Diagnosis Restless leg Restless legs syndrome (RLS) Vitamin D deficiency documented in this encounter Care Teams Bread Supervisor Relationship Specialty Start Date End Date Oxana Martinez MD PCP - [employer] 11/19/17 WonderOxana baxter MD PCP - General Family Medicine 03/27/23 Perla Jones, MONIKA Registered Nurse Family Medicine 12/12/23 documented as of this encounter
--- OUTSIDE RECORDS SUMMARY | 2025-04-22 13:50 | XMS_ITS | Clinical Summary ---
Author Organization [facility] Address [address] [place] [address] Phone Care Team Providers Care Rehabilitation Liaison Name Role Phone Unavailable Primary Care Provider Unavailabl e Social History Tobacco Use Types Packs/Day Years Used Date Smoking Tobacco: Never Assessed Sex and Gender Information Value Date Recorded Sex Assigned at Not on file Legal Sex Male 4:01 PM EST Gender Identity Not on file Sexual Orientation Not on file Plan of Treatment Not on file
--- OUTSIDE RECORDS SUMMARY | 2025-04-22 13:50 | XMS_ITS | Clinical Summary ---
Author Organization [facility] Address [address] [place], [place] [id number] Care Team Providers Care Automotive Glass Technician Name Role Phone Oxana Martinez MD Primary Care Provider [phone] Allergies Active Allergy Reactions Criticality Noted Date Comments Contrast Dye Unknown 08/27/2013 Oxaprozin Unknown 08/27/2013 Dexamethasone Sodium Phosphate Unknown 08/27 Cephalexin Unknown 08/27/2013 Latex Unknown 08/27/2013 Polymox Unknown 08/27/2013 Medications Aspirin 81 mg Tab Take 81 mg by mouth once daily. Active celecoxib (CELEBREX) 200 mg capsule Take 200 mg by mouth once daily. Active Tadalafil (CIALIS) 10 mg tablet Take 10 mg by mouth as needed. Active warfarin (COUMADIN) 5 mg tablet Take 5 mg by mouth daily as directed. Active ipratropium-albu terol (COMBIVENT) 18-103 mcg/actuation inhaler Inhale 2 Puffs as instructed every 6 hours as needed. Active FLUTICASONE PROPIONATE (FLUTICASONE NASAL) Use 50 mcg in the nose once daily. Active isosorbide mononitrate ER (IMDUR) 30 mg 24 hr tablet Take 30 mg by mouth twice daily. Active lisinopril 5 mg tablet Take 5 mg by mouth once daily. Active METOPROLOL TARTRATE ORAL Take 25 mg by mouth once daily. Active nitroglycerin sublingual (NITROSTAT) 0.4 mg SL tablet Dissolve 0.4 mg under the tongue every 5 minutes as needed. Active ondansetron 4 mg tablet Take 4 mg by mouth every 8 hours as needed. Active oxyCODONE immediate release 5 mg immediate release tablet Take 5 mg by mouth every 4 hours as needed. Active Cellulose,Oxidiz ed-Collagen (PROMOGRAN MATRIX) 19.1 X 19.1 (45 %-55 %) Bndg Apply 1 application to affected area as directed. Active rOPINIRole (REQUIP) 1 mg tablet Take 2 mg by mouth daily at bedtime. Active tamsulosin 0.4 mg Cp24 Take 0.4 mg by mouth as needed. Active acetaminophen-co deine 300-30 mg per tablet Take 1 tablet by mouth every 4 hours as needed. Active acetaminophen-HY DROcodone (VICODIN) 5-500 mg tablet Take 1 tablet by mouth every 6 hours as needed. Active B-complex with vitamin C tablet Take 2 tablets by mouth once daily. Active cyanocobalamin 1,000 mcg Tab Take 2,000 mcg by mouth once daily. Active akbfa-5k-znw-epa -fish oil-D3 (VITAMIN-D + OMEGA-3) 350 mg- 1,000 unit cap Take 5 tablets by mouth once daily. Active chromium picolinate 1,000 mcg Tab Take 1,000 mg by mouth once daily. Active Methylsulfonylme marquise (MSM) 1,000 mg cap Take 2 capsules by mouth once daily. Active Ferrous Sulfate 325 mg (65 mg iron) tablet Take 325 mg by mouth daily with breakfast. Active LACTOBAC CMB #3/FOS/PANTETHIN E (PROBIOTIC & ACIDOPHILUS ORAL) Take 2 capsules by mouth once daily. Active GLUCOSAMINE HCL/CHONDR VELEZ A NA (OSTEO BI-FLEX ORAL) Take 3 capsules by mouth once daily. Active coenzyme Q10 (CO Q-10) 100 mg cap Take 100 mg by mouth once daily. Active Zinc 50 mg cap Take 1 capsule by mouth once daily. Active potassium gluconate 595 (99) mg TbER Take 1 capsule by mouth once daily. Active Magnesium 250 mg Tab Take 250 mg by mouth once daily. Active vitamin e 1,000 unit capsule Take 1,000 Units by mouth once daily. Active Ascorbic Acid (VITAMIN C) 1,000 mg tablet Take 1,000 mg by mouth once daily. Active Vitamin A 10,000 unit Tab Take 1 capsule by mouth once daily. Active Calcium Carbonate-Vitami n D2 1,200-400 mg-unit cap Take 1 capsule by mouth twice daily. Active Mv,Ca,Iron,Min-F A-Phytosterol (CENTRUM CARDIO) 3-200-400 mg-mcg-mg Tab Take 1 tablet by mouth once daily. Active Acai Diane Extract 500 mg cap Take 2 tablets by mouth once daily. Active Arginine HCl, L-Arginine, 1,000 mg Tab Take 3 tablets by mouth once daily. Active CINNAMON BARK (CINNAMON ORAL) Take 1 tablet by mouth twice daily. Active PARSLEY/GARLIC (GARLIC-PARSLEY) cap Take 1 tablet by mouth once daily. Active Garlic cap Take 2 capsules by mouth twice daily. Active glyBURIDE 2.5 mg tablet Take 2.5 mg by mouth twice daily with meals. Active ZETIA 10 mg tablet Take 10 mg by mouth once daily. 3 Active tamsulosin (FLOMAX) 0.4 mg cp24 Take 0.4 mg by mouth once daily. Active furosemide (LASIX) 40 mg tablet Take 40 mg by mouth twice daily. Active esomeprazole (NEXIUM) 40 mg capsule Take 40 mg by mouth once daily. Active omega-3 acid ethyl esters (LOVAZA) 1 gram capsule Take 4 g by mouth once daily. Active Cetirizine (ZYRTEC) 10 mg cap Take 1 tablet by mouth twice daily. Active ipratropium-albu terol (COMBIVENT) 18-103 mcg/actuation inhaler Inhale 2 Puffs as instructed every 4 hours as needed. Active selenium 200 mcg tab Take 2 tablets by mouth once daily. Active haui-qohg-fwf#1- X-gala-cmu-bor (OSTEO BI-FLEX TRIPLE STRENGTH) 750 mg-644 mg- 30 mg-1 mg tab Take 2 tablets by mouth once daily. Active Active Problems Problem Noted Date Diagnosed Date Coronary artery disease 08/27/2013 Diabetes mellitus 08/27/2013 Osteoarthritis 08/27/2013 Ulcer 08/27/2013 Anemia 08/18/2013 Social History Tobacco Use Types Packs/Day Years Used Date Smoking Tobacco: Never Smokeless Tobacco: Never Alcohol Use Standard Drinks/Week Comments No 0 (1 standard drink = 0.6 oz pur e alcohol) Sex and Gender Information Value Date Recorded Sex Assigned at Not on file Legal Sex Male 11:42 AM EDT Gender Identity Not on file Sexual Orientation Not on file Last Filed Vital Signs Vital Sign Reading Time Taken Comments Blood Pressure 128/80 08/03/2014 1:42 PM EDT Pulse 89 08/03/2014 1:42 PM EDT Temperature 36.8 C (98.2 F) 08/03/2014 1:42 PM EDT Respiratory Rate 16 09/01/2013 2:15 PM EDT Oxygen Saturation - - Inhaled Oxygen Concentration - - Weight 104.3 kg (230 lb) 08/03/2014 1:42 PM EDT Height 175.3 cm (5' 9 ) 08/03/2014 1:42 PM EDT Body Mass Index 33.97 08/03/2014 1:42 PM EDT Plan of Treatment Health Maintenance Due Date Last Done Comments Anxiety Screening 1960 Depression Screening 1960 DTaP,Tdap,Td Vaccine (1 - Tdap) 1961 Diabetes Screening 1987 Pneumococcal Vaccine: 50+ (1 of 1 - PCV) 1992 Shingrix Vaccine (1 of 2) 1992 RSV Vaccine (1 - 1-dose 75+ series) 2017 Covid-19 Vaccine ( - season) 2024 Advance Directive Discussion 11/19/2024 Influenza Vaccine (Season Ended) 2025 Insurance Care Teams Automotive Glass Technician Relationship Specialty Start Date End Date Oxana Martinez MD PCP - General Family Medicine 07/24/13
--- OUTSIDE RECORDS SUMMARY | 2025-04-22 13:51 | XMS_ITS | Encounter Summary ---
Author Organization [facility] Address [address] [place] [address] Care Team Providers Care Bit Grinder Name Role Phone Oxana Martinez MD Unavailable [phone] Oxana Martinez MD Primary Care Provider [phone] Perla Jones RN Unavailable [phone] Encounter Details Date Type Department Care Team (Late st Contact Info) Description 04/19/2025 Abstract [facility] [address] [place] [id number] Oxana Martinez MD Social History Tobacco Use [...] on filedocumented in this encounter Care Teams Bit Grinder Relationship Specialty Start Date End Date Oxana Martinez MD PCP - [employer] 11/19/17 WonderOxana baxter MD PCP - General Family Medicine 03/27/23 Perla Jones, RN Registered Nurse Family Medicine 12/12/23 documented as of this encounter
--- OUTSIDE RECORDS SUMMARY | 2025-04-22 13:51 | XMS_ITS | Encounter Summary ---
Author Organization [facility] Address [address] [place] [address] Care Team Providers Care Veterinarian Helper Name Role Phone Oxana Martinez MD Unavailable [phone] Oxana Martinez MD Primary Care Provider [phone] Perla Moss RN Unavailable [phone] Encounter Details Date Type Department Care Team (Late st Contact Info) Description 04/20/2025 Patient Outreach [facility] POP[facility]ATION [facility] [address] [place] [address] Perla Moss, MONIKA Social History Tobacco Use Types Packs/Day Years [...] on file documented as of this encounter Progress Notes * Perla Moss RN - 04/20/2025 1:15 PM EDT Images from the original note were not included. Rec incoming vm message from pt's granddaughter, Marcie: This is Polly Brooks calling. On behalf of my grandpa Toi, give me a call back. Thank you. Chart reviewed. Pt to [facility] ER on 04/19/25. He was eval, treated and dc to home. He had ECG, Xray, and labs. DX: Prolonged Q-T interval, on ECG, Dyspnea, unspec. No new prescriptions given. <April 20, 2025, 13:16 - Prela Moss RN> Call to granddaughter, Marcie. She reported her grandfather was in the ER yesterday for sob and chest pain. She reported that he is home now and he needs a new O2 pump - the one he has at home is beeping. [employer] is O2 supplier. She wants him to have portable O2 too. Will advise [employer]. She further reported that pt does not have pain meds - he is taking ibuprofen and tylenol. He has not have pain meds since January. Asked for more pain meds. Advised Dr Ramirez is not longer working and there are not providers in this office that will supply controlled pain meds. She then reported that he is veryanxious, the zoloft does not help him. She asked if he can have something for anxiety. Advised to follow up with MARKETING TRAFFIC MANAGER, Hillary christianson. Pt is not eating much - does not want to eat - has lost 45lbs. He only eats crackers, chicken nuggets and drinks water. He gets anxious and looses his breath. He seems better now but is not yeimi when it will happen again. He had not new prescriptions or med changes from Er Visit. Advised will ask Hillary Dexter NP to reach out to schedule home visit. She vu. <April 20, 2025, 14:46 - Perla Moss RN> Call to [facility], , spoke with Sabina. Advised her that granddaughter requested someone come and look at O2 pump, he may need a new one -it is beeping since it was turned back on after the Er visit. She is also asking for portable O2. Sabina will reach out to Granddaughter to followup. ER JOHN completed Flowsheet Row Patient Outreach from 04/20/2025 in [facility] with Perla Moss RN Hospital Information ED, Hospital or Care Home Facility Discharge? ED Patient has been contacted within 2 days of being seen in the ED Yes Diagnosis DX: Prolonged Q-T interval, on ECG, Dyspnea, unspec. Discharge Date 04/19/25 Discharged To: Home Setting Discharge Hospital [facility] Engagement Call Start Time 1316 Admission Date 04/19/25 Medications Discharge medications reviewed and reconciled from hospital? Not applicable [No new prescriptions given.] Is the patient having any side effects they believe may be caused by any medication additions or changes? No Does the patient have all medications ordered at discharge? Not applicable Nursing Interventions Nurse provided patient education Is the patient taking all medications as directed (includes completed medication regime)? Yes Nursing Interventions Nurse provided patient education Appointments Does the patient have a primary care provider? Yes [Hillary Dexter NP to follow for home visit.] Self Management Does patient have home health? yes Patient Teaching Does the patient have access to their discharge instructions? Yes Nursing Interventions Reviewed instructions with patient What is the patient's perception of their health status since discharge? Improving Is the patient/caregiver able to teach back the hierarchy of who to call/visit for symptoms/problems? PCP, Specialist, Home Health nurse, Urgent Care, ED, 911 Yes Wrap Up Is the patient/caregiver familiar with Advance Care Planning? Yes Wrap Up Additional Comments Pt to [facility] ER on 04/19/25. He was eval, treated and dc to home. He had ECG, Xray, and labs. DX: Prolonged Q-T interval, on ECG, Dyspnea, unspec. No new prescriptions given. Call End Time 1321 documented in this encounter Plan of Treatment Not on file documented as of this encounter Visit Diagnoses Diagnosis Chronic obstructive pulmonary disease, unspecified COPD type (CMS/HCC)- Primary Hypertensive heart disease with heart failure (CMS/HCC) Unspecified hypertensive heart disease with heart failure documented in this encounter Care Teams Veterinarian Helper Relationship Specialty Start Date End Date Oxana Martinez MD PCP - Cheryl 11/19/17 Oxana Martinez MD PCP - General Family Medicine 03/27/23 Perla Moss, RN Registered Nurse Family Medicine 12/12/23 documented as of this encounter
--- OUTSIDE RECORDS SUMMARY | 2025-04-22 13:51 | XMS_ITS | Encounter Summary ---
Author Organization [facility] [employer] [facility] tem Address [id number] [address] [place] [address] Care Team Providers Care Funeral Pre Arrangement Counselor Name Role Phone Carla Gaines [facility] Family Medicine Primary Care Provider Reason for Visit * Reason Onset Date Comments Appointment 03/09/2021 Encounter Details Date Type Department Care Team (Late st Contact Info) Description 03/09/[address] [facility] [address] [place] [address] Afshan Forrest CNA Appointment Social History Tobacco Use Types Packs/Day Years [...] Recorded Do you need help finding a [facility] career center and/or a training program? No [...] or suspected to have Coronavirus / COVID-19? Unable to assess 03/09/2021 1:38 PM EDT documented as of this encounter [...] documented as of this encounter Care Teams Funeral Pre Arrangement Counselor Relationship Specialty Start Date End Date [facility] Family Medicine [address] [place] [phone] PCP - General Family Medicine 04/19/25 documented as of this encounter
--- OUTSIDE RECORDS SUMMARY | 2025-04-22 13:51 | XMS_ITS | Encounter Summary ---
Author Organization [facility] Address [address] [place] [address] Care Team Providers Care Typesetters Printer Name Role Phone Oxana Martinez MD Unavailable [phone] Oxana Martinez MD Primary Care Provider [phone] Perla Jones RN Unavailable [phone] Reason for Visit * Reason Comments Med Refill Encounter Details Date Type Department Care Team ([facility] Contact Info) Description 02/03/2025 Refill [facility] [address] [place] [phone] Oxana Martinez MD Anemia, unspecified type Social History Tobacco Use Types Packs/Day Years [...] as of this encounter Visit Diagnoses Diagnosis Anemia, unspecified type documented in this encounter Care Teams Typesetters Printer Relationship Specialty Start Date End Date Oxana Martinez MD PCP - [employer] 11/19/17 Oxana Martinez MD PCP - General Family Medicine 03/27/23 Perla Jones, RN Registered Nurse Family Medicine 12/12/23 documented as of this encounter
--- OUTSIDE RECORDS SUMMARY | 2025-04-22 13:51 | XMS_ITS | Encounter Summary ---
Author Organization [facility] [employer] [facility] tem Address [id number] [address] [place] [address] Care Team Providers Care Campus Executive Director Name Role Phone Carla Gianes [facility] Family Medicine Primary Care Provider Reason for Visit * Reason Onset Date Comments Appointment 03/18/2021 Encounter Details Date Type Department Care Team (Late st Contact Info) Description 03/18/[address] [facility] [address] [place] [address] Afshan Forrest CNA Appointment Social [...] Recorded Do you need help finding a [facility] career center and/or a training program? [...] documented as of this encounter Care Teams Campus Executive Director Relationship Specialty Start Date End Date Liana [facility] Family Medicine [address] [place] [phone] PCP - General Family Medicine 04/19/25 documented as of this encounter
--- OUTSIDE RECORDS SUMMARY | 2025-04-22 13:51 | XMS_ITS | Encounter Summary ---
Author Organization [facility] Address [address] [place] [address] Care Team Providers Care Weather Teacher Name Role Phone Oxana Martinez MD Unavailable [phone] Oxana Martinez MD Primary Care Provider [phone] Perla Jones RN Unavailable [phone] Reason for Visit * Reason Comments Med Refill Encounter Details Date Type Department Care Team (Late Contact Info) Description 04/11/2025 Refill [facility] [address] [place] [address] Oxana Martinez MD Chronic diastolic heart failure (CMS/HCC); Vitamin D deficiency Social History Tobacco Use [...] of this encounter Visit Diagnoses Diagnosis Chronic diastolic heart failure (CMS/HCC) Chronic diastolic heart failure Vitamin D deficiency documented in this encounter Care Teams Weather Teacher Relationship Specialty Start Date End Date Oxana Martinez MD PCP - [employer] 11/19/17 Oxana Martinez MD PCP - General Family Medicine 03/27/23 Perla Jones, RN Registered Nurse Family Medicine 12/12/23 documented as of this encounter
--- OUTSIDE RECORDS SUMMARY | 2025-04-22 13:51 | XMS_ITS | Encounter Summary ---
Author Organization [facility] Address [address] [place] [address] Care Team Providers Care Extension Course Coordinator Name Role Phone Oxana Martinez MD Unavailable [phone] Oxana Martinez MD Primary Care Provider [phone] Perla Jones RN Unavailable [phone] Encounter Details Date Type Department Care Team (Late st Contact Info) Description 04/19/2025 Abstract [facility] [address] [place] [phone] Oxana Martinez MD Social History Tobacco Use [...] on filedocumented in this encounter Care Teams Extension Course Coordinator Relationship Specialty Start Date End Date Oxana Martinez MD PCP - [employer] 11/19/17 WonderOxana baxter MD PCP - General Family Medicine 03/27/23 Perla Jones, RN Registered Nurse Family Medicine 12/12/23 documented as of this encounter
--- OUTSIDE RECORDS SUMMARY | 2025-04-22 13:51 | XMS_ITS | Encounter Summary ---
Author Organization [employer] tem Address [id number] [address] [place] [address] Care Team Providers Care Statistics Teacher Name Role Phone Carla Gaines [facility] Family Medicine Primary Care Provider Encounter Details Date Type Department Care Team (Late st Contact Info) Description 12/10/2020 Abstract [facility] - [facility] On[facility] [address] [place] [address] Kirstin Stoddard Social History Tobacco Use Types Packs/Day Years Used Date Smoking Tobacco: Never Smokeless Tobacco: Never Alcohol Use Standard Drinks/Week Comments No 0 (1 standard drink = 0.6 oz pur e alcohol) Childcare Answer Date Recorded Childcare Unknown 04/28/2019 Employment Answer Date Recorded Employment Unknown 04/28/2019 Purpose - Life Answer Date Recorded Purpose and direction in life Unknown Sex and Gender Information Value Date Recorded Sex Assigned at Not on file Legal Sex Male 11:21 AM EDT Gender Identity Not on file Sexual Orientation Not on file COVID-19 Exposure Response Date Recorded In the last month, have you been in contact with someone who was confirmed or suspected to have Coronavirus / COVID-19? No / Unsure 12/08/2020 10:51 AM EST documented as of this encounter Plan of [...] documented as of this encounter Care Teams Statistics Teacher Relationship Specialty Start Date End Date Carla Gaines [facility] Family Medicine [address] [place] [address] PCP - General Family Medicine 04/19/25 documented as of this encounter
--- OUTSIDE RECORDS SUMMARY | 2025-04-22 13:51 | XMS_ITS | Encounter Summary ---
Author Organization [facility] tem Address [id number] [address] [place] [address] Care Team Providers Care Torch Heater Name Role Phone Carla Gaines [facility] Family Medicine Primary Care Provider Encounter Details Date Type Department Care Team (Late st Contact Info) Description 12/04/2020 Orders Only [facility] - Lab [address] [place] [address] Claude Arias, CPT Heart failure, unspecified ([facility]) Social History Tobacco Use Types Packs/Day Years [...] have Coronavirus / COVID-19? No / Unsure 12/07/2020 8:14 AM EST documented as of this encounter Plan of Treatment Not on file documented as of this encounter Procedures Procedure Name Priority Date/Time Associated Diagnosis Comments URINALYSIS WITH REFLEX TO CULTURE Routine 12/04/2020 11:18 AM EST Heart failure, unspecified (CMS-HCC) URINE CULTURE Routine 12/04/2020 11:18 AM EST documented in this encounter Results * (ABNORMAL) Urine culture (12/04/2020 11:18 AM EST) Culture 50,000 to 100,000 ORGANISMS/mL PSEUDOMONAS AERUGINOSA(A) 12/05/2020 10:56 PM EST [facility] Culture ALONG WITH RARE NORMAL URO GENITAL JESUS 12/05/2020 10:56 PM EST [facility] Urine / Unknown 12/04/2020 1 1:18 AM EST 12/04/2020 5:38 PM EST Narrative Organism Antibiotic Method Susceptibility Pseudomonas Aeruginosa Amikacin JEREL METHOD <=2: Susceptible Pseudomonas Aeruginosa Cefepime JEREL METHOD <=1: Susceptible Pseudomonas Aeruginosa Ciprofloxacin JEREL METHOD <=0.25: Susceptible Pseudomonas Aeruginosa Gentamicin JEREL METHOD <=1: Susceptible Pseudomonas Aeruginosa Levofloxacin JEREL METHOD 1: Susceptible Pseudomonas Aeruginosa Meropenem JEREL METHOD 1: Susceptible Pseudomonas Aeruginosa Piperacillin JEREL METHOD <=4: Susceptible Pseudomonas Aeruginosa Tobramycin JEREL METHOD <=1: Susceptible Oxana Martinez MD MICROBIOLOGY - GENERAL ORDERA BLES Final Result SERGE [facility] [address] [place] [address] * (ABNORMAL) Urinalysis with reflex culture (12/04/2020 11:18 AM EST) Color YELLOW YELLOW^YE LLOW 12/04/2020 5:58 PM [facility] Turbidity CLEAR CLEAR^[place] 12/04/2020 5:58 PM EST [facility] Specific gravity 1.025 1.003 - 1.035 12/04/2020 5:58 PM EST [facility] Nitrite Negative Negative^ Negative 12/04/2020 5:58 PM EST [facility] Ph urine 5.5 5.0 - 8.5 12/04/2020 5:58 PM [facility] Leukocyte esterase SMALL(A) Negative^ Negative 12/04/2020 5:58 PM EST [facility] Protein Negative Negative^ Negative mg/dL 12/04/2020 5:58 PM EST [facility] Glucose, Ur Negative Negative^ Negative mg/dL 12/04/2020 5:58 PM EST [facility] Ketones urine Negative Negative^ Negative mg/dL 12/04/2020 5:58 PM [facility] Urobilinogen 0.2 <1.1 eu/dL 12/04/2020 5:58 PM EST [facility] Bilirubin, urine Negative Negative^ Negative 12/04/2020 5:58 PM EST [facility] Hemoglobin Negative Negative^ Negative 12/04/2020 5:58 PM [facility] WBC 20(H) 0 - 5 /hpf 12/04/2020 5:58 PM EST [facility] RBC 0 0 - 5 /hpf 12/04/2020 5:58 PM [facility] Serum / Unknown 12/04/2020 1 1:18 AM EST 12/04/2020 5:38 PM EST Oxana aMrtinez MD URINE ORDERABLES Final Result Performing Organization Address City/State/[facility] Co de Phone Number [facility] [address], [place] [address] documented in this encounter Visit Diagnoses Diagnosis Heart failure, unspecified (CMS-HCC) Heart failure, unspecified documented in this encounter Additional Health Concerns [...] documented as of this encounter Care Teams Torch Heater Relationship Specialty Start Date End Date [facility]iana [facility] Family Medicine [address] [place] [phone] PCP - General Family Medicine 04/19/25 documented as of this encounter
--- OUTSIDE RECORDS SUMMARY | 2025-04-22 13:51 | XMS_ITS | Encounter Summary ---
Author Organization [facility] tem Address [id number] [address] [place] [address] Care Team Providers Care International Banker Name Role Phone Carla Gaines [facility] Family Medicine Primary Care Provider Encounter Details Date Type Department Care Team (Late st Contact Info) Description 03/15/2021 Telephone [facility] [address] [place] [phone] Raquel Lee, MONIKA Social History Tobacco Use Types Packs/Day [...] Recorded Do you need help finding a [employer] career center and/or a training program? No [...] documented as of this encounter Care Teams International Banker Relationship Specialty Start Date End Date [facility]iana [facility] Family Medicine [address] [place] [phone] PCP - General Family Medicine 04/19/25 documented as of this encounter
--- OUTSIDE RECORDS SUMMARY | 2025-04-22 13:51 | XMS_ITS | Encounter Summary ---
Author Organization [employer] tem Address [id number] [address] [place] [address] Care Team Providers Care Water Quality Control Engineer Name Role Phone Carla Gaines [facility] Family Medicine Primary Care Provider Encounter Details Date Type Department Care Team (Late st Contact Info) Description 12/07/2020 Orders Only Malka Simmons [facility] - Medical Oncology [address] [place] [phone] Virginia Ríos RN Anemia, unspecified type (Primary Dx) Social History Tobacco Use Types [...] on file documented as of this encounter Results * Type and crossmatch (12/08/2020 10:58 AM EST) Arm band number [id number] [facility] ABORh A POSITIVE [facility] Antibody Screen NEGATIVE [facility] Unit number [id number] [facility] Blood component type [id number] [facility] Unit division 00 [facility] Status of unit TRANSFUSED [facility] Transfusion status OK TO TRANSFUSE [facility] Crossmatch result COMPATIBLE [facility] Unit number [id number] [facility] Blood component type [id number] [facility] Unit division 00 [facility] Status of unit TRANSFUSED [facility] Transfusion status OK TO TRANSFUSE [facility] Crossmatch result COMPATIBLE [facility] Serum / Unknown 12/08/2020 1 0:58 AM EST 12/08/2020 11:00 AM EST us Oxana Martinez MD BLOOD BANK PRODUCT ORDERABLES Edited Result - Final [facility] [address] [place] [address] documented in this encounter Visit Diagnoses Diagnosis Anemia, unspecified type- Primary documented in this encounter Additional Health Concerns [...] documented as of this encounter Care Teams Water Quality Control Engineer Relationship Specialty Start Date End Date [facility] [address] [facility] [address] [place] [phone] PCP - General Family Medicine 04/19/25 documented as of this encounter
--- OUTSIDE RECORDS SUMMARY | 2025-04-22 13:51 | XMS_ITS | Encounter Summary ---
Author Organization [facility] Address [address] [place] [address] Care Team Providers Care Dairy Grazer Name Role Phone Oxana Martinez MD Unavailable [phone] Oxana Martinez MD Primary Care Provider [phone] Perla Jones RN Unavailable [phone] Encounter Details Date Type Department Care Team (Late st Contact Info) Description 04/19/2025 Abstract [facility] [address] [place] [phone] Oxana Martinez MD Social History Tobacco Use [...] on filedocumented in this encounter Care Teams Dairy Grazer Relationship Specialty Start Date End Date Oxana Martinez MD PCP - [employer] 11/19/17 WonderOxana baxter MD PCP - General Family Medicine 03/27/23 Perla Jones, RN Registered Nurse Family Medicine 12/12/23 documented as of this encounter
--- OUTSIDE RECORDS SUMMARY | 2025-04-22 13:51 | XMS_ITS | Encounter Summary ---
Author Organization [employer] tem Address [id number] [address] [place] [address] Care Team Providers Care Wet Mixer Name Role Phone Carla Gaines [facility] Family Medicine Primary Care Provider Encounter Details Date Type Department Care Team (Late st Contact Info) Description 12/06/2020 Orders Only Malka Simmons [facility] - Medical Oncology [address] [place] [phone] Virginia Ríos RN Social History Tobacco Use Types Packs/Day Years [...] documented as of this encounter Care Teams Wet Mixer Relationship Specialty Start Date End Date Carla Gaines [facility] Family Medicine [address] [place] [address] PCP - General Family Medicine 04/19/25 documented as of this encounter
--- NOTE | 2025-04-22 13:52 | ECG_ITS ---
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 Measurements Intervals [place] Rate: 93 P: 64 NC: 110 QRS: -28 QRSD: 142 T: 11 QT: 404 QTc: 455 Interpretive Statements 1100 Sinus rhythm 1570 with occasional ventricular premature complexes with occasional supraventricular premature complexes 2210 Short NC interval 2450 Right bundle branch block 7300 Indeterminate axis 9150 abnormal ECG Compared to ECG 01/12/2022 12:55:43 Ventricular and supraventricular premature complex(es) now present Indeterminate axis now present Electronically Signed On 04-22-2025 19:22:55 EDT by UMESH HESTER M.D.
--- NOTE | 2025-04-22 13:52 | XR_ITS ---
The [address] [address] Patient Name: FAYE LIN MRN: [id number] date: 1940 Sex: M Assigned Patient Location: ER Current Patient Location: ER Accession/Order Number: [id number] Exam Date: 04/22/2025 15:34 Report Date: 04/22/2025 15:35 At the request of: ZACARIAS TOPETE MD Procedure: XR chest 1V XR chest 1V 04/22/2025 2:14 PM SIGNS AND SYMPTOMS: ^SOB ^Y PROTOCOL: Frontal radiograph of the chest COMPARISON: 10/24/2021 FINDINGS: The trachea is midline. Sternotomy wires overlie the mediastinum. Atherosclerotic changes are noted in the thoracic aorta. The heart and mediastinal structures are within normal limits. Chronic elevation left hemidiaphragm is noted. The lung parenchyma is clear. The bony thorax is intact. Degenerative changes are noted in the shoulders and thoracic spine. XR/XR chest 1V IMPRESSION: No acute cardiopulmonary pathology. There is chronic elevation of the left hemidiaphragm. Impression dictated by: Phil Vela M.D. 04/22/2025 3:35 PM Dictation Location: [place] [address] Electronically authenticated by: [id number] Y Date: 04/22/2025 15:35
--- NOTE | 2025-04-22 13:53 | ED_ITS ---
HPI HPI - General Adult General Chief complaint: Weakness Stated complaint: GENERAL WEAKNESS Time Seen by Provider: 04/22/25 13:48 Mode of arrival: ambulance History of Present Illness HPI narrative: 84-year-old male presents to the emergency department by ambulance from home for reported shortness of breath. Upon arrival the patient does not seem to have any complaints. He tells me his breathing is fine and that he does not have any pain. He is a poor historian and is hard of hearing and has a history of dementia. Initially no family members present. Review of Systems ROS Narrative Not obtainable, dementia PFSH PFSH Social History Little interest or pleasure in doing things: not at all Feeling down, depressed, or hopeless: not at all Exam Narrative Exam Narrative: Nurses note and vital signs reviewed and patient is not hypoxic. General: The patient appears in no apparent distress. Patient is resting comfortably on cart. He is hard of hearing Skin: Warm, dry, no pallor noted. There is no rash noted. He has several round areas of loss of skin in his presacral area. No purulent drainage. He has some mild erythema in his thoracic spine region as well. Head: Normocephalic, atraumatic Eye: Normal conjunctiva, no drainage Ears, Nose, Mouth, and Throat: oral mucosa is moist. Nares patent. Cardiovascular: Regular Rate and Rhythm Respiratory: Patient is in no distress, no accessory muscle use, lungs are clear to auscultation, no wheezing, rales or rhonchi GI: Soft and nontender Musculoskeletal: The patient has no evidence of calf tenderness, no pitting edema, symmetrical pulses noted bilaterally. Bilateral lower extremities are wrapped with Tyler wrap Neurological: Awake and alert Psychiatric: Cooperative Constitutional Vital Signs, click to edit/add: Last Vital Signs Temp 98.4 F 04/22/25 13:42 Pulse 86 04/22/25 15:10 Resp 21 H 04/22/25 15:10 BP 146/88 H 04/22/25 13:47 Pulse Ox 96 04/22/25 14:30 O2 Del Method Nasal Cannula 04/22/25 13:42 O2 Flow Rate 2 04/22/25 13:42 Course Vital Signs Vital signs: Vital Signs Temperature 98.4 F 04/22/25 13:42 Pulse Rate 101 H 04/22/25 13:42 Respiratory Rate 20 04/22/25 13:42 Blood Pressure 146/88 H 04/22/25 13:42 Pulse Oximetry 96 04/22/25 13:42 Oxygen Delivery Method Nasal Cannula 04/22/25 13:42 Oxygen Delivery Flow Rate 2 04/22/25 13:42 Temperature 98.4 F 04/22/25 13:42 Pulse Rate 86 04/22/25 15:10 Respiratory Rate 21 H 04/22/25 15:10 Blood Pressure 146/88 H 04/22/25 13:47 Pulse Oximetry 96 04/22/25 14:30 Oxygen Delivery Method Nasal Cannula 04/22/25 13:42 Oxygen Delivery Flow Rate 2 04/22/25 13:42 Medical Decision Making MDM Narrative Medical decision making narrative: UTI is identified. He has been weak and has dementia. He has been in another hospital's emergency department a few times in the past week. Cultures were obtained and he was given IV Rocephin and is being admitted. The patient was informed. Differential Diagnosis Differential Diagnosis: UTI, pneumonia, dehydration Lab Data Lab results reviewed: Yes I reviewed the patient's lab results Labs: Lab Results 04/22/25 04/22/25 04/22/25 Range/Units 14:00 14:02 15:00 WBC 12.1 H (4.0-11.0) 10^3/uL RBC 4.88 (4.70-6.10) 10^6/uL Hgb 13.9 L (14.0-18.0) g/dL Hct 44.1 (42.0-54.0) % MCV 90.4 (80.0-94.0) fL MCH 28.5 (25.9-34.0) pg MCHC 31.5 (29.9-35.2) g/dL RDW 18.3 H (11.0-15.0) % Plt Count 400 (150-450) 10^3/uL MPV 11.3 (9.5-13.5) fL Neut % (Auto) 66.6 (43.0-75.0) % Lymph % (Auto) 23.9 (20.5-60.0) % [place]upe % (Auto) 8.3 (1.7-12.0) % Eos % (Auto) 0.2 L (0.9-7.0) % Baso % (Auto) 0.6 (0.2-2.0) % Neut # (Auto) 8.1 H (1.4-6.5) 10^3/uL Lymph # (Auto) 2.9 (1.2-3.8) 10^3/uL [place] # (Auto) 1.0 H (0.3-0.8) 10^3/uL Eos # (Auto) 0.0 (0.0-0.7) 10^3/uL Baso # (Auto) 0.1 (0.0-0.1) 10^3/uL Abs Immat Gran (auto) 0.05 H (0.00-0.03) 10^3/uL Imm/Tot Granulo (auto) 0.4 (0.0-0.5) % Sodium (136-145) mmol/L Potassium (3.5-5.1) mmol/L Chloride (98-107) mmol/L Carbon Dioxide (21.0-32.0) mmol/L Anion Gap BUN (7.0-18.0) mg/dL Creatinine (0.70-1.30) mg/dL Est GFR ( Amer) (>=60 mL/min/1.73m^2) Est GFR (Non-Af Amer) (>=60 mL/min/1.73m^2) BUN/Creatinine Ratio Glucose (74-106) mg/dL Calcium (8.5-10.1) mg/dL Troponin I High Sens (4.0-76.1) pg/mL Urine Color Dk yellow (YELLOW) Urine Clarity Sl cloudy (CLEAR) Urine pH 6.0 (5.0-9.0) Ur Specific Be[place] 1.010 (1.005-1.025) Urine Protein 30 A (NEG/TRACE) mg/dL Urine Glucose (UA) Negative (NEGATIVE) mg/dL Urine Ketones 15 A (NEGATIVE) mg/dL Urine Occult Blood Large A (NEGATIVE) Urine Nitrite Positive A (NEGATIVE) Urine Bilirubin Negative (NEGATIVE) Urine Urobilinogen 0.2 (0.2-1.0) EU/dL Ur Leukocyte Esterase Moderate A (NEGATIVE) Urine RBC 20-50 A (0-2) #/HPF Urine WBC 50-75 A (NONE SEEN) #/HPF Ur Squamous Epith Cells Rare (NONE/RARE) #/LPF Urine Crystals None seen (None Seen) #/HPF Urine Bacteria Moderate A (NONE SEEN) #/HPF Urine Casts None seen (NONE SEEN) #/LPF Urine Mucus None seen (NONE SEEN) Ur Culture Indicated? Yes-[facility] SARS-CoV-2 Ag (CV2AG) Negative (NEGATIVE) 04/22/25 Range/Units 15:08 WBC (4.0-11.0) 10^3/uL RBC (4.70-6.10) 10^6/uL Hgb (14.0-18.0) g/dL Hct (42.0-54.0) % MCV (80.0-94.0) fL MCH (25.9-34.0) pg MCHC (29.9-35.2) g/dL RDW (11.0-15.0) % Plt Count (150-450) 10^3/uL MPV (9.5-13.5) fL Neut % (Auto) (43.0-75.0) % Lymph % (Auto) (20.5-60.0) % [place] % (Auto) (1.7-12.0) % Eos % (Auto) (0.9-7.0) % Baso % (Auto) (0.2-2.0) % Neut # (Auto) (1.4-6.5) 10^3/uL Lymph # (Auto) (1.2-3.8) 10^3/uL [place] # (Auto) (0.3-0.8) 10^3/uL Eos # (Auto) (0.0-0.7) 10^3/uL Baso # (Auto) (0.0-0.1) 10^3/uL Abs Immat Gran (auto) (0.00-0.03) 10^3/uL Imm/Tot Granulo (auto) (0.0-0.5) % Sodium 139 (136-145) mmol/L Potassium 3.7 (3.5-5.1) mmol/L Chloride 98 (98-107) mmol/L Carbon Dioxide 35.2 H (21.0-32.0) mmol/L Anion Gap 9.5 BUN 23.0 H (7.0-18.0) mg/dL Creatinine 0.99 (0.70-1.30) mg/dL Est GFR ( Amer) >60 (>=60 mL/min/1.73m^2) Est GFR (Non-Af Amer) >60 (>=60 mL/min/1.73m^2) BUN/Creatinine Ratio 23.2 Glucose 122 H (74-106) mg/dL Calcium 9.6 (8.5-10.1) mg/dL Troponin I High Sens 9.0 (4.0-76.1) pg/mL Urine Color (YELLOW) Urine Clarity (CLEAR) Urine pH (5.0-9.0) Ur Specific [place] (1.005-1.025) Urine Protein (NEG/TRACE) mg/dL Urine Glucose (UA) (NEGATIVE) mg/dL Urine Ketones (NEGATIVE) mg/dL Urine Occult Blood (NEGATIVE) Urine Nitrite (NEGATIVE) Urine Bilirubin (NEGATIVE) Urine Urobilinogen (0.2-1.0) EU/dL Ur Leukocyte Esterase (NEGATIVE) Urine RBC (0-2) #/HPF Urine WBC (NONE SEEN) #/HPF Ur Squamous Epith Cells (NONE/RARE) #/LPF Urine Crystals (None Seen) #/HPF Urine Bacteria (NONE SEEN) #/HPF Urine Casts (NONE SEEN) #/LPF Urine Mucus (NONE SEEN) Ur Culture Indicated? SARS-CoV-2 Ag (CV2AG) (NEGATIVE) Imaging Data Chest x-ray: Radiologist's impression: ITS Impressions Chest X-Ray 04/22/25 13:52 IMPRESSION: No acute cardiopulmonary pathology. There is chronic elevation of the left hemidiaphragm. Impression dictated by: Phil Vela M.D. 04/22/2025 3:35 PM Dictation Location: [place] [address] Electronically authenticated by: [id number] Y Date: 04/22/2025 15:35 Discharge Plan Discharge Chief Complaint: Weakness Clinical Impression: Urinary tract infection, Generalized weakness Patient Disposition: Admitted as Observation Time of Disposition Decision: 17:08 Condition: Fair
[2025-04-22 14:24] LABS: Basophils Absolute Auto 0.1 10^3/uL (0.0-0.1); Basophils Percent Auto 0.6 % (0.2-2.0); Eosinophils Percent Auto 0.2 % (0.9-7.0); Hematocrit 44.1 % (42.0-54.0); Hemoglobin 13.9 g/dL (14.0-18.0); Immature Granulocytes Abs Auto 0.05 10^3/uL (0.00-0.03); Immature Granulocytes Pct Auto 0.4 % (0.0-0.5); Lymphocytes Absolute Auto 2.9 10^3/uL (1.2-3.8); Lymphocytes Percent Auto 23.9 % (20.5-60.0); Mean Corpuscular HGB Conc 31.5 g/dL (29.9-35.2); Mean Corpuscular Hemoglobin 28.5 pg (25.9-34.0); Mean Corpuscular Volume 90.4 fL (80.0-94.0); Mean Platelet Volume 11.3 fL (9.5-13.5); Monocytes Percent Auto 8.3 % (1.7-12.0); Neutrophils Absolute Auto 8.1 10^3/uL (1.4-6.5); Neutrophils Percent Auto 66.6 % (43.0-75.0); Platelet Count 400 10^3/uL (150-450); Red Blood Count 4.88 10^6/uL (4.70-6.10); Red Cell Distribution Width 18.3 % (11.0-15.0); White Blood Count 12.1 10^3/uL (4.0-11.0)
[2025-04-22 14:34] LABS: Internal Control Within Normal Limits; SARS-CoV-2 Ag NEGATIVE (NEGATIVE)
[2025-04-22 15:35] LABS: Anion Gap 9.5; BUN Creatinine Ratio 23.2; Calcium 9.6 mg/dL (8.5-10.1); Carbon Dioxide 35.2 mmol/L (21.0-32.0); Chloride 98 mmol/L (98-107); Estimated GFR (African America >60 (>=60 mL/min/1.73m^2); Estimated GFR (Non-African Ame >60 (>=60 mL/min/1.73m^2); Glucose 122 mg/dL (74-106); Potassium 3.7 mmol/L (3.5-5.1); Sodium 139 mmol/L (136-145)
[2025-04-22 15:48] LABS: Bilirubin Urine NEGATIVE (NEGATIVE); Blood Urine LARGE (NEGATIVE); Clarity Urine SL CLOUDY (CLEAR); Glucose Urine UA NEGATIVE (NEGATIVE); Ketones Urine 15 mg/dL (NEGATIVE); Leukocyte Esterase Urine MODERATE (NEGATIVE); Nitrite Urine POSITIVE (NEGATIVE); Protein Urine 30 mg/dL (NEG/TRACE); Urobilinogen Urine 0.2 EU/dL (0.2-1.0)
[2025-04-22 15:55] LABS: Color Urine DK YELLOW (YELLOW)
[2025-04-22 16:02] LABS: Bacteria Urine MODERATE #/HPF (NONE SEEN); Cast Seen? NONE SEEN #/LPF (NONE SEEN); Crystals Seen? None Seen #/HPF (None Seen); Mucus Urine NONE SEEN (NONE SEEN); RBC Urine 20-50 #/HPF (0-2); Squamous Epithelial Cell Urine RARE #/LPF (NONE/RARE); Urine Culture Indicated YES-FRMC; WBC Urine 50-75 #/HPF (NONE SEEN)
[2025-04-22 17:18] LABS: Lactate/Lactic Acid 1.4 mmol/L (0.4-2.0)
[2025-04-22] MEDS: CEFTRIAXONE 1,000 MG in 0.9 % SODIUM CHLORIDE 50 ML 100 MG IV (17:19)
--- NOTE | 2025-04-22 19:19 | P.HP_ITS ---
HPI H&P: HPI History of Present Illness Chief complaint: GENERAL WEAKNESS Narrative: Patient presented emergency room with increasing weakness and some change in his baseline altered mental status. Found to have tachycardia, increased respiratory rate, leukocytosis, abnormal UA consistent with acute UTI chest x- ray clear but persistent cough I saw patient up in the medical surgical floor, coughing frequently throughout the evaluation Review of Systems ROS Status of ROS 10 or more systems reviewed and unremark able except as noted in history and below PFSH PFSH Social History Little interest or pleasure in doing things: not at all Feeling down, depressed, or hopeless: not at all Meds Home Medications and Allergies Allergies Allergy/AdvReac Type Severity Reaction Status Date / Time No Known Drug Allergies Allergy Verified 04/22/25 17:12 Exam Constitutional Vital Signs, click to edit/add: Last Vital Signs Temp 97.5 F L 04/22/25 19:00 Pulse 84 04/22/25 19:00 Resp 16 04/22/25 19:00 BP 122/77 04/22/25 19:00 Pulse Ox 91 L 04/22/25 19:00 O2 Del Method Room Air 04/22/25 19:00 O2 Flow Rate 2 04/22/25 13:42 Documenting provider has reviewed patient's vital signs: yes Common normals: no apparent distress Chest Common normals: inspection of chest normal Respiratory Common normals: normal respiratory effort and no retractions Cardio Common normals: regular rate and regular rhythm GI Common normals: Normal to inspection, nondistended, normoactive bowel sounds present and soft to palpation Neuro Common normals: not oriented x3 Results Labs Labs: Short CBC 04/22/25 Range/Units 14:00 WBC 12.1 H (4.0-11.0) 10^3/uL Hgb 13.9 L (14.0-18.0) g/dL Hct 44.1 (42.0-54.0) % Plt Count 400 (150-450) 10^3/uL BMP 04/22/25 15:08 Sodium 139 Potassium 3.7 Chloride 98 Carbon Dioxide 35.2 H BUN 23.0 H Creatinine 0.99 Glucose 122 H Calcium 9.6 Urine 04/22/25 Range/Units 15:00 Urine Color Dk yellow (YELLOW) Urine Clarity Sl cloudy (CLEAR) Urine pH 6.0 (5.0-9.0) Ur Specific [place] 1.010 (1.005-1.025) Urine Protein 30 A (NEG/TRACE) mg/dL Urine Glucose (UA) Negative (NEGATIVE) mg/dL Assessment and Plan Assessment and Plan (1) Generalized weakness: (2) Urinary tract infection: (3) Dementia: (4) Coronary artery disease: (5) Sacral decubitus ulcer: Plan Admission findings: Sinus tachycardia, respiratory distress, leukocytosis, abnormal UA consistent with acute UTI which is created an increase in his baseline dementia resulting in altered mental status Acute UTI with alteration mental status, acute delirium-with baseline dementia, IV antibiotics, cultures pending for both blood and urine Sacral wounds as well as wounds on his lower extremities will consult to wound management Dementia-no home meds listed in chart we will hold off on treating at this time to try to establish his baseline Coronary artery disease apparent with mid sternal scar, no chest pain, check on troponin Admission status: Patient with acute alteration mental status with leukocytosis and sinus tachycardia consistent with sepsis due to UTI, medically necessary treatment will span 2 midnights. Inpatient status Urinary Catheter Management Urinary Catheter Management Straight: Cath placed during this visit: yes Urethral indwelling: No Insertion date: 04/22/25 Insertion time: 15:00
[2025-04-22 19:28] LABS: Alanine Aminotransferase 15 U/L (16-63); Albumin Globulin Ratio 0.6; Alkaline Phosphatase 126 U/L (46-116); Aspartate Amino Transferase 31 U/L (15-37); Bilirubin Direct 0.1 mg/dL (0.0-0.2); Bilirubin Total 0.4 mg/dL (0.2-1.0); Globulin 4.9 g/dL; Total Protein 7.9 g/dL (6.4-8.2)
--- NOTE | 2025-04-22 22:26 | PHOTOS ---
Addendum entered by Delfina Jones RN 04/22/25 23:36: left medial knee Original Note:
--- NOTE | 2025-04-22 22:29 | PHOTOS ---
Addendum entered by Delfina Jones RN 04/22/25 23:36: sacrum Original Note:
--- NOTE | 2025-04-22 22:31 | PHOTOS ---
Addendum entered by Delfina Jones RN 04/22/25 23:36: Spine Original Note:
[2025-04-22] MEDS: CIPROFLOXACIN IN 5 % DEXTROSE 400 MG/200 ML PREMIX 200 MG IV (22:43)
[2025-04-22] MEDS: ACETAMINOPHEN 500 MG TABLET 1000 MG PO (22:45)
[2025-04-22] MEDS: IPRATROPIUM/ALBUTEROL SULFATE 3 ML AMPUL.NEB IH (22:55)
--- NOTE | 2025-04-22 23:00 | PC.NURSE ---
Patient poor historian. No history given. Patient has contractures in bilateral hands, right worse than left. Three sacral wounds open and draining , potential problem area to spine due to curvature of back. Dressing removed from bilateral lower legs with multiple areas of discoloration. Small wound to medial left knee. Bilateral feet dry and scaly. Patient received bed bath, linens changed and waffle mattress applied.
[2025-04-22] MEDS: LACTATED RINGER'S SOLUTION 1,000 ML 50 ML IV (23:48)
[2025-04-23] VITALS (11 sets, daily range): BP systolic 101–129; BP diastolic 64–84; PULSE 67–88; TEMP 36.4–36.7; O2SAT 91–97
--- NOTE | 2025-04-23 01:49 | PC.NURSE ---
Received fax Natividad RODRÍGUEZ Called to find history on patient. Employee Magda is granddaughter of patient. Granddaughter stated patient has not been eating or drinking at home. All ADL's are provided by her. Granddaughter isn't sure if patient should be taken to facility for strengthening or brought back home. Stated dementia is getting worse. Former retired so they have been searching for another doctor and can't get in for 2 weeks. States patients sacral wound is probably from the loose BM he has . This teletypewriter operator explained I don't have history on patient and patient can't provide one. Granddaughter stated she might be able to come in when she gets off work.
[2025-04-23] MEDS: IPRATROPIUM/ALBUTEROL SULFATE 3 ML AMPUL.NEB IH ×4 (04:43→22:29)
[2025-04-23 05:19] LABS: Basophils Absolute Auto 0.1 10^3/uL (0.0-0.1); Basophils Percent Auto 0.8 % (0.2-2.0); Eosinophils Absolute Auto 0.1 10^3/uL (0.0-0.7); Eosinophils Percent Auto 0.6 % (0.9-7.0); Hematocrit 38.1 % (42.0-54.0); Hemoglobin 12.3 g/dL (14.0-18.0); Immature Granulocytes Abs Auto 0.04 10^3/uL (0.00-0.03); Immature Granulocytes Pct Auto 0.4 % (0.0-0.5); Lymphocytes Absolute Auto 2.3 10^3/uL (1.2-3.8); Lymphocytes Percent Auto 22.1 % (20.5-60.0); Mean Corpuscular HGB Conc 32.3 g/dL (29.9-35.2); Mean Corpuscular Hemoglobin 29.1 pg (25.9-34.0); Mean Corpuscular Volume 90.3 fL (80.0-94.0); Mean Platelet Volume 10.2 fL (9.5-13.5); Monocytes Absolute Auto 1.2 10^3/uL (0.3-0.8); Monocytes Percent Auto 11.6 % (1.7-12.0); Neutrophils Absolute Auto 6.7 10^3/uL (1.4-6.5); Neutrophils Percent Auto 64.5 % (43.0-75.0); Platelet Count 397 10^3/uL (150-450); Red Blood Count 4.22 10^6/uL (4.70-6.10); Red Cell Distribution Width 17.8 % (11.0-15.0); White Blood Count 10.4 10^3/uL (4.0-11.0)
[2025-04-23 05:32] LABS: BUN Creatinine Ratio 23.7; Calcium 9.2 mg/dL (8.5-10.1); Carbon Dioxide 34.4 mmol/L (21.0-32.0); Chloride 97 mmol/L (98-107); Estimated GFR (African America >60 (>=60 mL/min/1.73m^2); Estimated GFR (Non-African Ame >60 (>=60 mL/min/1.73m^2); Glucose 134 mg/dL (74-106); Potassium 3.4 mmol/L (3.5-5.1); Sodium 136 mmol/L (136-145)
--- NOTE | 2025-04-23 06:43 | P.PN_ITS ---
Progress Note: Subjective Subjective Interval history: On rounds to see patient, sleeping when I entered the room difficult to arouse this morning, granddaughter states she did not sleep significantly last night Exam Constitutional Vital Signs, click to edit/add: Last Vital Signs Temp 97.8 F 04/23/25 05:14 Pulse 77 04/23/25 05:14 Resp 18 04/23/25 05:14 BP 101/64 04/23/25 05:14 Pulse Ox 91 L 04/23/25 05:14 O2 Del Method Room Air 04/23/25 05:14 O2 Flow Rate 1 04/23/25 04:43 Documenting provider has reviewed patient's vital signs: yes Common normals: apparent distress (Sedated) Chest Common normals: inspection of chest normal Respiratory Common normals: normal respiratory effort, no retractions and clear to auscultation bilaterally Cardio Common normals: regular rate, regular rhythm and no murmurs GI Common normals: Normal to inspection, nondistended, normoactive bowel sounds present and non-tender Extremity Common normals: normal to inspection and no clubbing, cyanosis or edema Neuro Common normals: not oriented x3 (Sedated) Progress Note: Objective Labs Labs: Short CBC 04/22/25 04/23/25 Range/Units 14:00 05:07 WBC 12.1 H 10.4 (4.0-11.0) 10^3/uL Hgb 13.9 L 12.3 L (14.0-18.0) g/dL Hct 44.1 38.1 L (42.0-54.0) % Plt Count 400 397 (150-450) 10^3/uL BMP 04/22/25 04/23/25 15:08 05:07 Sodium 139 136 Potassium 3.7 3.4 L Chloride 98 97 L Carbon Dioxide 35.2 H 34.4 H BUN 23.0 H 18.0 Creatinine 0.99 0.76 Glucose 122 H 134 H Calcium 9.6 9.2 Liver Function 04/22/25 Range/Units 15:08 Total Bilirubin 0.4 (0.2-1.0) mg/dL Direct Bilirubin 0.1 (0.0-0.2) mg/dL AST 31 (15-37) U/L ALT 15 L (16-63) U/L Alkaline Phosphatase 126 H (46-116) U/L Albumin 3.0 L (3.4-5.0) g/dL Urine 04/22/25 Range/Units 15:00 Urine Color Dk yellow (YELLOW) Urine Clarity Sl cloudy (CLEAR) Urine pH 6.0 (5.0-9.0) Ur Specific [place] 1.010 (1.005-1.025) Urine Protein 30 A (NEG/TRACE) mg/dL Urine Glucose (UA) Negative (NEGATIVE) mg/dL Progress Note: A&P Assessment and Plan (1) Generalized weakness: (2) Urinary tract infection: (3) Dementia: (4) Coronary artery disease: (5) Sacral decubitus ulcer: Plan Admission findings: Sinus tachycardia, respiratory distress, leukocytosis, abnormal UA consistent with acute UTI which is created an increase in his baseline dementia resulting in altered mental status Acute UTI with alteration mental status, acute delirium--discussed with family has been deteriorating lately, partly may be related to the acute UTI, so treating aggressively for that, but his dementia may be just progression of his normal dementia, white blood cell count improving Hypokalemia-supplement Sacral wounds as well as wounds on his lower extremities will consult to wound management Dementia-phone to home medication list and he has been on some will adjust further today Coronary artery disease apparent with mid sternal scar, no chest pain, check on troponin Sounds like difficulty with increasing weakness at home which could be related to untreated bladder infection, treating that, otherwise I believe he would be a good rehabilitation candidate, and will start the process for placement for short-term rehab Admission status: Patient with acute alteration mental status with leukocytosis and sinus tachycardia consistent with sepsis due to UTI, medically necessary treatment will span 2 midnights. Inpatient status Urinary Catheter Management Urinary Catheter Management Straight: Cath placed during this visit: yes Urethral indwelling: No Insertion date: 04/22/25 Insertion time: 15:00
--- NOTE | 2025-04-23 08:41 | CM.NOTE ---
Rounds made with Dr. Fuentes, pt continues to c/o generalized weakness. PT and OT will evaluate pt for discharge planning and recommendations.
[2025-04-23] MEDS: CIPROFLOXACIN IN 5 % DEXTROSE 400 MG/200 ML PREMIX 200 MG IV ×2 (09:51→22:20)
[2025-04-23] MEDS: POTASSIUM CHLORIDE 10 MEQ ER TABLET PO ×2 (09:52→22:20)
[2025-04-23] MEDS: BUDESONIDE 0.5 MG/2 ML AMPULE NEB IH ×2 (11:16→22:29)
--- NOTE | 2025-04-23 12:05 | W.PM.WC ---
Wound Consult Note Assessment and Plan (1) Generalized weakness: (2) Urinary tract infection: (3) Dementia: (4) Coronary artery disease: (5) Sacral decubitus ulcer: Reason for Consult: Sacral pressure ulcers, bilateral heel pressure ulcers, venous insufficiency Assessment and Plan: Consult received to assess patient. Patient with pressure injuries to sacral area present on admission. Patient also found to have stage I pressure injuries to bilateral heels. Healing venous ulcers to bilateral lower medial legs. Patient was a previous patient in the outpatient clinic. He has not been seen since May 2024. Overall his lower leg ulcers appear to be healing well. Gentian July staining noted to periwound of bilateral medial lower leg ulcerations. (Used to protect skin) Ulcerations appear to be without signs of infection, minimal drainage currently. Periwound skin is very dry. Upon assessment of bilateral heels, heels are reddened and nonblanchable. They are boggy and dry. Bilateral feet with thickened, elongated toenails. Patient has 3 open stage II pressure injuries to his sacral area. Periwound is reddened and nonblanchable. He is currently on a waffle mattress overlay and rotated to his right side per bedside nursing. Plan Plan: Continue waffle mattress overlay Reposition patient frequently Mepliex border foam to sacral ulcers, inspect skin every shift by peeling down dressing and reapply if not soiled. Change every 3-5 days. Apply thin layer of triad over sacral area under mepilex. Use waffle air boots bilaterally xeroform gauze to bilateral medial lower leg ulcers, cover with kerlix and tubigrips. Change daily mepilex border dressing to mid back reddened area. inspect skin every shift by peeling down dressing and reapply if not soiled. change every 3-5 days Photos per bedside nursing in chart. Please call [phone] with any questions or concerns. Renaldo Monteiro RN, CWON Wound Assessment Wound Sacrum: Wound Staging: Stage II (There are 3 separate open ulcerations to patient's sacral area. 2 on left. Left proximal 2.5cmx1.3cmx0.1cm Left distal 2cmx1.3cmx0.1cm right 2.9cmx1.8cmx0.1cm) Wound Bed Appearance: [place] and Yellow Wound Margins Description: Well Defined Surrounding Tissue Appearance: Bright Red Surrounding Tissue Temperature: warm Drainage Description: Serous Drainage Amount: Scant Drainage Odor: No Odor Dressing Status: Changed (applied mepilex border dressing) Primary Dressing: mepilex border sacral dressing Were photos of the wound(s) taken and uploaded to the chart?: Yes Dressing Change Patient Tolerance: Tolerated Well Right Lower Medial Leg: Wound Type: Stasis Ulcer (scattered small open areas, measured as one ulcer17) Is This a Chronic Wound: Yes Length: 17 Width: 6 Depth: 0.1 Wound Bed Appearance: [place] and Peeling Skin Wound Margins Description: Indistinct Surrounding Tissue Temperature: warm Drainage Description: Serosanguineous Drainage Amount: Small Drainage Odor: No Odor Dressing Status: Changed Primary Dressing: xeroform Secondary Dressing: Gauze Roll/Wrap Were photos of the wound(s) taken and uploaded to the chart?: Yes Dressing Change Patient Tolerance: Tolerated Well Left Lower Medial Leg: Wound Type: Stasis Ulcer (area with multiple small open areas noted. Measured as one ulcer. ) Is This a Chronic Wound: Yes Length: 15 Width: 6 Depth: 0.1 Wound Bed Appearance: [place] and Peeling Skin Wound Margins Description: Indistinct Surrounding Tissue Appearance: [place] Surrounding Tissue Temperature: warm Drainage Description: Serosanguineous Drainage Amount: Small Drainage Odor: No Odor Dressing Status: Changed Primary Dressing: xeroform gauze Secondary Dressing: Gauze Roll/Wrap Were photos of the wound(s) taken and uploaded to the chart?: Yes Dressing Change Patient Tolerance: Tolerated Well Right Heel: Wound Type: Pressure Injury Wound Staging: Stage I (nonblanching, boggy heel, dry, flaky skin) Wound Bed Appearance: Peeling Skin (lotion applied) Primary Dressing: air boot placed Left Heel: Wound Type: Pressure Injury Wound Staging: Stage I (nonblanching, boggy heel, dry flaky skin) Primary Dressing: air boot placed Upper Back: Wound Type: Pressure Injury (nonblanching reddened skin) Wound Staging: Stage I Primary Dressing: mepilex border dressing Dressing Change Patient Tolerance: Tolerated Well
[2025-04-23] MEDS: FERROUS SULFATE 325 MG TABLET PO (12:26)
[2025-04-23] MEDS: CELECOXIB 100 MG CAPSULE PO (12:26)
[2025-04-23] MEDS: ASPIRIN 81 MG TABLET.DR PO (12:26)
[2025-04-23] MEDS: ACETAMINOPHEN 500 MG TABLET 1000 MG PO (12:26)
[2025-04-23] MEDS: FUROSEMIDE 40 MG TABLET PO (12:26)
--- NOTE | 2025-04-23 13:14 | SWNOTE1 ---
Medicare Outpatient Observation Notice reviewed and discussed with patient's daughter, Elis. Pt's daughter Elis verbalized understanding and signed the form. Original placed in pt's room and copy placed in patient?s chart.
--- NOTE | 2025-04-23 13:15 | SWNOTE1 ---
SW spoke to nurse and pt is only alert to name and date. SW to call daughter Elis about discharge planning. SW called and spoke to Elis. Pt lives at home with grand-daughter. Pt's family uses a stand lift to move pt around, he does not really walk around. Pt does have [facility] nurse coming in to wrap legs. SW did go over recommendations of pt going to rehab for a short term rehab stay. She voiced pt has been to [facility] in past, he did not love it. She did ask about him going to [facility], SW informed her that [facility] does not do skilled anymore only assisted living. She voiced understanding. Pt's grand-daughter in background and voiced they will do [facility] again. SW let them know she is a precert. They are aware of how insurance process works. SW to send referral. SW did ask what the goal was after rehab, they voiced for him to return home. Referral sent to [facility]. Referral included face sheet, ED note, H&P, provider notes, case management report, wound consult, nursing notes, diagnostic imaging, med list, and PT/OT notes.
[2025-04-23] MEDS: GABAPENTIN 100 MG CAPSULE PO ×2 (14:23→22:21)
--- NOTE | 2025-04-23 15:13 | SWNOTE1 ---
SW received message from Floresita at [facility] and they can accept and precert has been started.
[2025-04-23] MEDS: CEFTRIAXONE 1,000 MG in 0.9 % SODIUM CHLORIDE 50 ML 100 MG IV (17:01)
[2025-04-23] MEDS: MAGNESIUM OXIDE 400 MG TABLET PO (17:04)
[2025-04-23] MEDS: LACTATED RINGER'S SOLUTION 1,000 ML 50 ML IV (19:43)
[2025-04-23] MEDS: TIZANIDINE HCL 4 MG TABLET PO (22:20)
[2025-04-23] MEDS: PANTOPRAZOLE SODIUM 40 MG TABLET.DR PO (22:21)
[2025-04-23] MEDS: DONEPEZIL HCL 5 MG TABLET 10 MG PO (22:21)
[2025-04-23] MEDS: ROPINIROLE HCL 1 MG TABLET PO (22:21)
[2025-04-24] VITALS (10 sets, daily range): BP systolic 93–155; BP diastolic 54–93; PULSE 57–77; TEMP 35.7–36.8; O2SAT 53–99
[2025-04-24] MEDS: IPRATROPIUM/ALBUTEROL SULFATE 3 ML AMPUL.NEB IH ×4 (04:58→22:26)
[2025-04-24] MEDS: GABAPENTIN 100 MG CAPSULE PO ×3 (05:14→21:06)
--- NOTE | 2025-04-24 06:17 | P.PN_ITS ---
Progress Note: Subjective Subjective Interval history: Much more awake this am - no complaints although speech is hard to understand Exam Constitutional Vital Signs, click to edit/add: Last Vital Signs Temp 98.2 F 04/24/25 04:00 Pulse 57 L 04/24/25 04:58 Resp 16 04/24/25 04:58 BP 99/63 04/24/25 04:00 Pulse Ox 96 04/24/25 04:58 O2 Del Method Room Air 04/24/25 04:58 O2 Flow Rate 1 04/23/25 04:43 Documenting provider has reviewed patient's vital signs: yes Common normals: no apparent distress Chest Common normals: inspection of chest normal Respiratory Common normals: normal respiratory effort, no retractions and clear to auscultation bilaterally Cardio Common normals: regular rate, regular rhythm and no murmurs GI Common normals: Normal to inspection, nondistended, normoactive bowel sounds present and non-tender Extremity Common normals: normal to inspection Neuro Common normals: not oriented x3 (Sedated) Progress Note: A&P Assessment and Plan (1) Generalized weakness: (2) Urinary tract infection: (3) Dementia: (4) Coronary artery disease: (5) Sacral decubitus ulcer: Plan Admission findings: Sinus tachycardia, respiratory distress, leukocytosis, abnormal UA consistent with acute UTI which is created an increase in his baseline dementia resulting in altered mental status Acute UTI with alteration mental status, -improved mentation today, continue with current antibiotics, check on culture results Hypokalemia-supplement Sacral wounds as well as wounds on his lower extremities will consult to wound management-plan for wound management Dementia-adjusted medications, patient in need of placement Coronary artery disease apparent with mid sternal scar, no chest pain, check on troponin Sounds like difficulty with increasing weakness at home which could be related to untreated bladder infection, treating that, otherwise I believe he would be a good rehabilitation candidate, and will start the process for placement for short-term rehab-awaiting bed Admission status: Patient with acute alteration mental status with leukocytosis and sinus tachycardia consistent with sepsis due to UTI, medically necessary treatment will span 2 midnights. Inpatient status Urinary Catheter Management Urinary Catheter Management Straight: Cath placed during this visit: yes Urethral indwelling: No Insertion date: 04/22/25 Insertion time: 15:00 Urethral: Cath placed during this visit: yes Urethral indwelling: Yes Reason for continuing: acute urinary retention Insertion date: 04/23/25 Insertion time: 11:16
[2025-04-24 07:00] LABS: Basophils Absolute Auto 0.1 10^3/uL (0.0-0.1); Basophils Percent Auto 0.7 % (0.2-2.0); Eosinophils Absolute Auto 0.1 10^3/uL (0.0-0.7); Eosinophils Percent Auto 0.8 % (0.9-7.0); Hematocrit 38.9 % (42.0-54.0); Hemoglobin 12.2 g/dL (14.0-18.0); Immature Granulocytes Abs Auto 0.05 10^3/uL (0.00-0.03); Immature Granulocytes Pct Auto 0.4 % (0.0-0.5); Lymphocytes Absolute Auto 2.7 10^3/uL (1.2-3.8); Lymphocytes Percent Auto 23.7 % (20.5-60.0); Mean Corpuscular HGB Conc 31.4 g/dL (29.9-35.2); Mean Corpuscular Hemoglobin 28.8 pg (25.9-34.0); Mean Platelet Volume 9.9 fL (9.5-13.5); Monocytes Absolute Auto 1.6 10^3/uL (0.3-0.8); Monocytes Percent Auto 14.3 % (1.7-12.0); Neutrophils Absolute Auto 6.8 10^3/uL (1.4-6.5); Neutrophils Percent Auto 60.1 % (43.0-75.0); Platelet Count 349 10^3/uL (150-450); Red Blood Count 4.23 10^6/uL (4.70-6.10); Red Cell Distribution Width 18.2 % (11.0-15.0); White Blood Count 11.3 10^3/uL (4.0-11.0)
[2025-04-24 07:36] LABS: Anion Gap 7.1; BUN Creatinine Ratio 17.3; Calcium 8.9 mg/dL (8.5-10.1); Carbon Dioxide 37.8 mmol/L (21.0-32.0); Chloride 98 mmol/L (98-107); Estimated GFR (African America >60 (>=60 mL/min/1.73m^2); Estimated GFR (Non-African Ame >60 (>=60 mL/min/1.73m^2); Glucose 160 mg/dL (74-106); Potassium 3.9 mmol/L (3.5-5.1); Sodium 139 mmol/L (136-145)
--- NOTE | 2025-04-24 08:00 | CM.NOTE ---
Rounds made with Dr. Fuentes, pt will discharge to [facility] for skilled therapy when medically stable.
--- NOTE | 2025-04-24 08:12 | W.PM.WC ---
Wound Consult Note Assessment and Plan (1) Generalized weakness: (2) Urinary tract infection: (3) Dementia: (4) Coronary artery disease: (5) Sacral decubitus ulcer: Plan Returned to see patient today to trim thickened, elongated toenails. Patient tolerated well. Renaldo Monteiro RN, CWON
[2025-04-24] MEDS: POTASSIUM CHLORIDE 10 MEQ ER TABLET PO ×2 (08:51→21:06)
[2025-04-24] MEDS: SERTRALINE HCL 50 MG TABLET PO (08:51)
[2025-04-24] MEDS: TAMSULOSIN HCL 0.4 MG CAPSULE PO (08:51)
[2025-04-24] MEDS: FERROUS SULFATE 325 MG TABLET PO (08:51)
[2025-04-24] MEDS: MULTIVITAMIN TABLET 1 TAB PO (08:52)
[2025-04-24] MEDS: PANTOPRAZOLE SODIUM 40 MG TABLET.DR PO ×2 (08:52→21:06)
[2025-04-24] MEDS: MAGNESIUM OXIDE 400 MG TABLET PO ×2 (08:52→16:29)
[2025-04-24] MEDS: CIPROFLOXACIN IN 5 % DEXTROSE 400 MG/200 ML PREMIX 200 MG IV ×2 (08:52→21:07)
[2025-04-24] MEDS: TIZANIDINE HCL 4 MG TABLET PO ×2 (08:52→21:06)
[2025-04-24] MEDS: CELECOXIB 100 MG CAPSULE PO (08:52)
[2025-04-24] MEDS: ASPIRIN 81 MG TABLET.DR PO (08:52)
[2025-04-24] MEDS: ACETAMINOPHEN 500 MG TABLET 1000 MG PO (08:52)
[2025-04-24] MEDS: ROPINIROLE HCL 1 MG TABLET PO ×2 (08:55→21:06)
--- NOTE | 2025-04-24 09:27 | CM.NOTE ---
Floresita at [facility] called and precert had not been started on 04/23- she will submit precert at this time and will call back when able to accept.
[2025-04-24] MEDS: BUDESONIDE 0.5 MG/2 ML AMPULE NEB IH ×2 (10:24→22:26)
--- NOTE | 2025-04-24 11:58 | PT.DAILY ---
Physical Therapy Daily Note PT Daily Note/Assess Start: 04/24/25 11:53 Freq: Status: Active Protocol: Document 04/24/25 11:53 FOE (Rec: 04/24/25 11:58 [id number]) Physical Therapy Daily Note/Assessment Time In/Time Out Time In 11:30 Time Out 11:40 Pain In Pain N/A Pain Out Pain N/A Subjective Subjective Pt supine upon arrival. Lethargic - hard to keep awake. Agrees to bed level ROM ex. Therapeutic Exercise Time Therapeutic Exercise 8 Minutes (minutes) Therapeutic Exercise 1 Units Therapeutic Exercise Treatment Therapeutic Exercise P/AAROm ex complete to bilat LE to improve mobility/ Treatment flexibility. Bilat HS and adductor tightness noticed with manual stretches. Pt lethargic throughout session - nursing notified. Total Physical Therapy Time Total Therapy 8 Minutes Total Physical 1 Therapy Units Summary Daily Note Summary Lethargy limits bed mobility. Session complete with pt at bed level. Nursing notified pt hard to keep awake through session.
--- NOTE | 2025-04-24 14:40 | CM.NOTE ---
Updates faxed to [facility], PT notes and Physician Progress note.
[2025-04-24] MEDS: CEFTRIAXONE 1,000 MG in 0.9 % SODIUM CHLORIDE 50 ML 100 MG IV (16:29)
[2025-04-24] MEDS: LACTATED RINGER'S SOLUTION 1,000 ML 50 ML IV (16:48)
--- NOTE | 2025-04-24 16:54 | DIETREC ---
Recommend 237 mL Ensure Original BID, 30 mL PRO-stat BID and 1 packet Gael BID to aid wound healing.
[2025-04-24] MEDS: DONEPEZIL HCL 5 MG TABLET 10 MG PO (21:06)
[2025-04-25] VITALS (12 sets, daily range): BP systolic 93–152; BP diastolic 48–73; PULSE 51–101; TEMP 36.1–36.8; O2SAT 91–99
[2025-04-25] MEDS: IPRATROPIUM/ALBUTEROL SULFATE 3 ML AMPUL.NEB IH ×4 (04:06→22:15)
[2025-04-25] MEDS: GABAPENTIN 100 MG CAPSULE PO ×3 (05:40→21:33)
[2025-04-25 06:17] LABS: Basophils Absolute Auto 0.1 10^3/uL (0.0-0.1); Basophils Percent Auto 0.4 % (0.2-2.0); Eosinophils Absolute Auto 0.1 10^3/uL (0.0-0.7); Eosinophils Percent Auto 0.4 % (0.9-7.0); Hematocrit 34.4 % (42.0-54.0); Hemoglobin 10.9 g/dL (14.0-18.0); Immature Granulocytes Abs Auto 0.05 10^3/uL (0.00-0.03); Immature Granulocytes Pct Auto 0.4 % (0.0-0.5); Lymphocytes Absolute Auto 1.8 10^3/uL (1.2-3.8); Lymphocytes Percent Auto 15.7 % (20.5-60.0); Mean Corpuscular HGB Conc 31.7 g/dL (29.9-35.2); Mean Corpuscular Hemoglobin 28.6 pg (25.9-34.0); Mean Corpuscular Volume 90.3 fL (80.0-94.0); Mean Platelet Volume 10.6 fL (9.5-13.5); Monocytes Absolute Auto 1.1 10^3/uL (0.3-0.8); Monocytes Percent Auto 9.3 % (1.7-12.0); Neutrophils Absolute Auto 8.4 10^3/uL (1.4-6.5); Neutrophils Percent Auto 73.8 % (43.0-75.0); Platelet Count 371 10^3/uL (150-450); Red Blood Count 3.81 10^6/uL (4.70-6.10); Red Cell Distribution Width 17.8 % (11.0-15.0); White Blood Count 11.5 10^3/uL (4.0-11.0)
[2025-04-25 06:20] LABS: Anion Gap 10.2; BUN Creatinine Ratio 14.9; Calcium 8.7 mg/dL (8.5-10.1); Carbon Dioxide 31.6 mmol/L (21.0-32.0); Chloride 97 mmol/L (98-107); Estimated GFR (African America >60 (>=60 mL/min/1.73m^2); Estimated GFR (Non-African Ame >60 (>=60 mL/min/1.73m^2); Glucose 176 mg/dL (74-106); Potassium 3.8 mmol/L (3.5-5.1); Sodium 135 mmol/L (136-145)
[2025-04-25] MEDS: MULTIVITAMIN TABLET 1 TAB PO (08:32)
[2025-04-25] MEDS: PANTOPRAZOLE SODIUM 40 MG TABLET.DR PO ×2 (08:32→21:33)
[2025-04-25] MEDS: CIPROFLOXACIN IN 5 % DEXTROSE 400 MG/200 ML PREMIX 200 MG IV (08:32)
[2025-04-25] MEDS: ROPINIROLE HCL 1 MG TABLET PO ×2 (08:32→21:33)
[2025-04-25] MEDS: CELECOXIB 100 MG CAPSULE PO (08:32)
[2025-04-25] MEDS: FUROSEMIDE 40 MG TABLET PO (08:32)
[2025-04-25] MEDS: SERTRALINE HCL 50 MG TABLET PO (08:32)
[2025-04-25] MEDS: ZINC GLUCONATE 50 MG TABLET PO (08:32)
[2025-04-25] MEDS: TIZANIDINE HCL 4 MG TABLET PO ×2 (08:32→21:33)
[2025-04-25] MEDS: ASPIRIN 81 MG TABLET.DR PO (08:32)
[2025-04-25] MEDS: POTASSIUM CHLORIDE 10 MEQ ER TABLET PO ×2 (08:32→21:33)
[2025-04-25] MEDS: MAGNESIUM OXIDE 400 MG TABLET PO ×2 (08:32→17:49)
[2025-04-25] MEDS: FERROUS SULFATE 325 MG TABLET PO (08:32)
[2025-04-25] MEDS: TAMSULOSIN HCL 0.4 MG CAPSULE PO (08:32)
--- NOTE | 2025-04-25 09:57 | PT.DAILY ---
Physical Therapy Daily Note PT Daily Note/Assess Start: 04/24/25 11:53 Freq: Status: Active Protocol: Document 04/25/25 09:47 [id number] (Rec: 04/25/25 09:52 [id number]) Physical Therapy Daily Note/Assessment Time In/Time Out Time In 08:11 Time Out 08:20 Pain In Pain Level 0 Pain Out Pain Level 0 Subjective Subjective Patient semi-lethargic and agreeable to participate with PT. Therapeutic Exercise Time Therapeutic Exercise 9 Minutes (minutes) Therapeutic Exercise 1 Units Therapeutic Exercise Treatment Therapeutic Exercise Patient performed A/AAROM ther ex to BJ LE x 10 reps Treatment for ankle pumps, quad/glut sets, SLR, heel slide, hip ABD, hip ER to prompt LE strengthening. Passive stretching to BJ HS and ADD to increase flexibility. Total Physical Therapy Time Total Therapy 9 Minutes Total Physical 1 Therapy Units Summary Daily Note Summary Patient with improved alertness this date. Increase participation with BJ LE ther ex. Edit Result 04/25/25 09:47 [id number] (Rec: 04/25/25 09:56 [id number]) Visit Not Completed Visit Not Completed Visit Not Completed Other Due to:
--- NOTE | 2025-04-25 10:15 | PM.PN ---
Progress Note: Subjective Subjective Interval history: Patient currently laying in bed getting a breathing treatment. He smiles to questions but does not answer them directly. I have reviewed OT and PT notes. It appears that patient is primarily dependent on family for ADL's and he has participated very limiting during PT sessions here. He has a Sacral ulcer so i presume he is bed ridden most days. Exam Narrative Exam Narrative: General: Patient is alert, but not oriented to person, place and time Skin: stage 3 sacral ulcer Head: atraumatic, acephalic Heart: Normal rate and rhythm, no murmurs/rubs/gallops Lungs: no audible wheezes, crackles and normal breath sounds all lung banks Abdomen: Normal audible bowel sounds, no distension, No palpable masses, no organomegaly, no rebound/guarding/ or rigidity Musculoskeletal: muscle atrophy noted, ROM is limited due to being in hospital bed, no swelling bilateral lower extremities Neuro: CN II-X grossly intact Constitutional Vital Signs, click to edit/add: Last Vital Signs Temp 97.0 F L 04/25/25 07:54 Pulse 79 04/25/25 07:54 Resp 16 04/25/25 07:59 BP 103/60 04/25/25 07:54 Pulse Ox 94 L 04/25/25 07:54 O2 Del Method Room Air 04/25/25 07:54 O2 Flow Rate 1 04/23/25 04:43 Progress Note: Objective Labs Labs: Short CBC 04/25/25 Range/Units 05:54 WBC 11.5 H (4.0-11.0) 10^3/uL Hgb 10.9 L (14.0-18.0) g/dL Hct 34.4 L (42.0-54.0) % Plt Count 371 (150-450) 10^3/uL BMP 04/25/25 05:54 Sodium 135 L Potassium 3.8 Chloride 97 L Carbon Dioxide 31.6 BUN 11.0 Creatinine 0.74 Glucose 176 H Calcium 8.7 Progress Note: A&P Assessment and Plan (1) Urinary tract infection: Assessment and Plan: urine culture pending, continue IV Rocephin Qualifiers: Hematuria presence: without hematuria Urinary tract infection type: acute cystitis Qualified Code(s): N30.00 - Acute cystitis without hematuria (2) Generalized weakness: Assessment and Plan: PT/OT evaluations recommend fdc facility, awaiting precert, need to do peer to peer to get insurance plan (3) Dementia: Assessment and Plan: continue donepezil and zoloft Qualifiers: Dementia behavioral or psychological symptom: unspecified whether behavioral, psychotic, or mood disturbance or anxiety Dementia severity: severe Dementia type: unspecified type Qualified Code(s): F03.C0 - Unspecified dementia, severe, without behavioral disturbance, psychotic disturbance, mood disturbance, and anxiety (4) Coronary artery disease: Assessment and Plan: continue atorvastatin and aspirin Qualifiers: Associated angina: without angina Coronary Disease-Associated Artery/Lesion type: [place] artery [place] vs. transplanted heart: [place] heart Qualified Code(s): I25.10 - Atherosclerotic heart disease of [place] coronary artery without angina pectoris (5) Sacral decubitus ulcer: Assessment and Plan: wound consult obtain with recs on the chart. Qualifiers: Pressure injury stage: stage 3 Qualified Code(s): L89.153 - Pressure ulcer of sacral region, stage 3 (6) COPD (chronic obstructive pulmonary disease): Assessment and Plan: appears in no acute exacerbation, will continue albuterol and symbicort Qualifiers: COPD type: unspecified COPD Qualified Code(s): J44.9 - Chronic obstructive pulmonary disease, unspecified Plan Patient is a DNRCC Currentlyprecerted for fdc facility Urinary Catheter Management Urinary Catheter Management Straight: Cath placed during this visit: yes Urethral indwelling: No Insertion date: 04/22/25 Insertion time: 15:00 Urethral: Cath placed during this visit: yes Urethral indwelling: Yes Reason for continuing: acute urinary retention Insertion date: 04/23/25 Insertion time: 11:16
[2025-04-25] MEDS: BUDESONIDE 0.5 MG/2 ML AMPULE NEB IH ×2 (11:06→22:15)
[2025-04-25] MEDS: JUVEN PACKET 1 PACKET PO ×2 (12:59→21:33)
[2025-04-25] MEDS: PROSTAT 15 GM PROTEIN/100 CAL 30 ML LIQUID PACKET PO (12:59)
[2025-04-25] MEDS: ENSURE ORIGINAL 237 ML BOTTLE PO (12:59)
[2025-04-25] MEDS: CEFTRIAXONE 1,000 MG in 0.9 % SODIUM CHLORIDE 50 ML 100 MG IV (17:49)
[2025-04-25] MEDS: DONEPEZIL HCL 5 MG TABLET 10 MG PO (21:33)
[2025-04-26] MEDS: 0.9 % SODIUM CHLORIDE 250 ML 10 ML IV (01:06)
[2025-04-26] MEDS: CIPROFLOXACIN IN 5 % DEXTROSE 400 MG/200 ML PREMIX 200 MG IV (01:06)
[2025-04-26] MEDS: HYOSCYAMINE SULFATE 0.125 MG TAB.SUBL SL (02:40)
[2025-04-26] MEDS: ACETAMINOPHEN 500 MG TABLET 1000 MG PO (02:40)
[2025-04-26 03:29] VITALS: BP 90/54; PULSE 86; TEMP 36.9; O2SAT 92
[2025-04-26] MEDS: IPRATROPIUM/ALBUTEROL SULFATE 3 ML AMPUL.NEB IH ×2 (04:04→11:11)
[2025-04-26 04:06] VITALS: PULSE 83; O2SAT 94
[2025-04-26] MEDS: GABAPENTIN 100 MG CAPSULE PO (05:07)
[2025-04-26 07:06] LABS: Basophils Absolute Auto 0.1 10^3/uL (0.0-0.1); Basophils Percent Auto 0.5 % (0.2-2.0); Eosinophils Absolute Auto 0.1 10^3/uL (0.0-0.7); Eosinophils Percent Auto 0.5 % (0.9-7.0); Hematocrit 32.4 % (42.0-54.0); Hemoglobin 10.2 g/dL (14.0-18.0); Immature Granulocytes Abs Auto 0.05 10^3/uL (0.00-0.03); Immature Granulocytes Pct Auto 0.5 % (0.0-0.5); Lymphocytes Absolute Auto 1.6 10^3/uL (1.2-3.8); Lymphocytes Percent Auto 17.4 % (20.5-60.0); Mean Corpuscular HGB Conc 31.5 g/dL (29.9-35.2); Mean Corpuscular Hemoglobin 28.7 pg (25.9-34.0); Mean Platelet Volume 10.4 fL (9.5-13.5); Monocytes Percent Auto 11.1 % (1.7-12.0); Neutrophils Absolute Auto 6.5 10^3/uL (1.4-6.5); Platelet Count 364 10^3/uL (150-450); Red Blood Count 3.56 10^6/uL (4.70-6.10); Red Cell Distribution Width 18.2 % (11.0-15.0); White Blood Count 9.3 10^3/uL (4.0-11.0)
[2025-04-26 07:17] LABS: Anion Gap 10.2; BUN Creatinine Ratio 26.6; Calcium 8.4 mg/dL (8.5-10.1); Carbon Dioxide 30.7 mmol/L (21.0-32.0); Chloride 97 mmol/L (98-107); Estimated GFR (African America >60 (>=60 mL/min/1.73m^2); Estimated GFR (Non-African Ame >60 (>=60 mL/min/1.73m^2); Glucose 231 mg/dL (74-106); Potassium 3.9 mmol/L (3.5-5.1); Sodium 134 mmol/L (136-145)
--- NOTE | 2025-04-26 07:40 | PM.DS1 ---
DS: Providers Provider Date of admission: 04/22/25 18:38 Primary care physician: ELIANE Kent Attending physician on admission: Kaleb Fuentes Consults: 04/22/25 Consult to Dietitian Routine Reason for consultation: wounds 04/22/25 18:35 Consult to Pharmacy Routine Consulting Provider: Reason for consultation: Please [place] me when Med Rec is Updated Has provider been notified: No Occupational Therapy Eval and Treat Routine Reason for consultation: Only if needed for Rehab Has provider been notified: No Physical Therapy Eval and Treat Routine Reason for consultation: Eval and Treat Has provider been notified: No 04/22/25 19:26 Clinical Bedside Swallow Eval and Treat Routine Reason for consultation: cough Has provider been notified: No Consult to Wound Care Routine Consulting Provider: Renaldo Monteiro Reason for consultation: sacral and lower ext lesions Has provider been notified: No Discharging clinician: Piedad Holland DS: Diagnosis Discharge Diagnosis (1) Urinary tract infection: Qualifiers: Hematuria presence: without hematuria Urinary tract infection type: acute cystitis Qualified Code(s): N30.00 - Acute cystitis without hematuria (2) Generalized weakness: (3) Dementia: Qualifiers: Dementia behavioral or psychological symptom: unspecified whether behavioral, psychotic, or mood disturbance or anxiety Dementia severity: severe Dementia type: unspecified type Qualified Code(s): F03.C0 - Unspecified dementia, severe, without behavioral disturbance, psychotic disturbance, mood disturbance, and anxiety (4) Coronary artery disease: Qualifiers: Associated angina: without angina Coronary Disease-Associated Artery/Lesion type: [place] artery [place] vs. transplanted heart: [place] heart Qualified Code(s): I25.10 - Atherosclerotic heart disease of [place] coronary artery without angina pectoris (5) Sacral decubitus ulcer: Qualifiers: Pressure injury stage: stage 3 Qualified Code(s): L89.153 - Pressure ulcer of sacral region, stage 3 (6) COPD (chronic obstructive pulmonary disease): Qualifiers: COPD type: unspecified COPD Qualified Code(s): J44.9 - Chronic obstructive pulmonary disease, unspecified DS: Summary Hospital Course Hospital Course: Patient admitted on 04/22/25 for increasing weakness and some change in his baseline altered mental status. Found to have tachycardia, increased respiratory rate, leukocytosis, abnormal UA consistent with acute UTI chest x-ray clear but persistent cough. Patient was treated for UTI with IV rocephin and cipro. Urine culture grew Pseudomonas that was causing the UTI, He will be treated with Cipro 500mg BID x 7 days. Gomez catheter was removed prior to discharge. WBC's 9.3 and Cr 0.79 at the time of discharge. Sacral ulcer stage 3 was addressed by our wound nurse along with leg/heel wounds. Patient did not participate well with PT/OT. Per there notes it seems patient is bed bound at baseline and has very limited transfer. Family has Hu lift at home. There was a precert to [facility], and [employer] requested a peer [facility] for [facility], [facility] and i attempted 04/25 and 04/26. I feel patient is currently back to his baseline and is not a great candidate for correction at this time but may require more jail care. I have coordinated patient's care plan with extrusion utility worker and his daughter is aware of plan. They plan to take him home and resume home health services today. No changes to home medications other than addition of Cipro for Ecoli UTI. Status at Discharge Functional status at discharge: bed bound Overall status at discharge: patient is back to baseline Time Spent with Patient Time attestation: Total time spent providing and/or coordinating discharge services: Time spent: greater than 30 minutes Exam Narrative Exam Narrative: General: Patient is alert, but not oriented to person, place and time Skin: stage 3 sacral ulcer Head: atraumatic, acephalic Heart: Normal rate and rhythm, no murmurs/rubs/gallops Lungs: no audible wheezes, crackles and normal breath sounds all lung banks Abdomen: Normal audible bowel sounds, no distension, No palpable masses, no organomegaly, no rebound/guarding/ or rigidity Musculoskeletal: muscle atrophy noted, ROM is limited due to being in hospital bed, no swelling bilateral lower extremities Neuro: CN II-X grossly intact Constitutional Vital Signs, click to edit/add: Last Vital Signs Temp 98.5 F 04/26/25 03:29 Pulse 83 04/26/25 04:06 Resp 18 04/26/25 04:06 BP 90/54 04/26/25 03:29 Pulse Ox 94 L 04/26/25 04:06 O2 Del Method Room Air 04/26/25 04:06 O2 Flow Rate 1 04/23/25 04:43 DS: Data Data Completed and Pending Labs on day of discharge: Labs from last 24 hours 04/26/25 06:25 WBC 9.3 RBC 3.56 L Hgb 10.2 L Hct 32.4 L MCV 91.0 MCH 28.7 MCHC 31.5 RDW 18.2 H Plt Count 364 MPV 10.4 Neut % (Auto) 70.0 Lymph % (Auto) 17.4 L [place] % (Auto) 11.1 Eos % (Auto) 0.5 L Baso % (Auto) 0.5 Neut # (Auto) 6.5 Lymph # (Auto) 1.6 [place] # (Auto) 1.0 H Eos # (Auto) 0.1 Baso # (Auto) 0.1 Abs Immat Gran (auto) 0.05 H Imm/Tot Granulo (auto) 0.5 Sodium 134 L Potassium 3.9 Chloride 97 L Carbon Dioxide 30.7 Anion Gap 10.2 BUN 21.0 H Creatinine 0.79 Est GFR ( Amer) >60 Est GFR (Non-Af Amer) >60 BUN/Creatinine Ratio 26.6 Glucose 231 H Calcium 8.4 L Preliminary micro results at discharge 04/22/25 19:15 Lower Respiratory Culture - Preliminary Sputum - Expectorated Sputum 04/22/25 16:47 Blood Culture Result 1 - Preliminary Blood NO GROWTH AT 36-48 HOURS. FINAL TO FOLLOW. 04/22/25 16:40 Blood Culture Result 2 - Preliminary Blood NO GROWTH AT 36-48 HOURS. FINAL TO FOLLOW. 04/22/25 15:00 Urine Culture - Preliminary Urine Catheterized Pending - Specimen sent to [facility] Discharge Plan Discharge Disposition: Home Health Service Condition: Fair Discharge Medications: New ciprofloxacin HCl 500 mg tablet 500 mg PO Q12H 7 Days Qty: 14 0RF Continued aspirin 81 mg tablet,delayed release (DR/EC) 81 mg PO .qd calcium carbonate-vitamin D3 600 mg-10 mcg (400 unit) tablet 1 tab PO .amhs celecoxib 100 mg capsule 100 mg PO .qd ferrous sulfate [FeroSul] 325 mg (65 mg iron) tablet 325 mg PO .qd furosemide 40 mg tablet 40 mg PO .qd gabapentin 100 mg capsule 100 mg PO TID magnesium oxide 400 mg (241.3 mg magnesium) tablet 400 mg PO BIDWM atorvastatin 20 mg tablet 20 mg PO QPM multivitamin Tablet 1 tab PO DAILY ropinirole 1 mg tablet 1 mg PO BID donepezil 5 mg tablet 5 mg PO .QHS tizanidine 4 mg tablet 4 mg PO BID tamsulosin 0.4 mg capsule 0.4 mg PO DAILY pantoprazole 40 mg tablet,delayed release (DR/EC) 40 mg PO BID docusate sodium 100 mg capsule 200 mg PO BID PRN (Reason: constipation) zinc gluconate 50 mg tablet 50 mg PO DAILY sertraline 50 mg tablet 50 mg PO DAILY cholecalciferol (vitamin D3) 25 mcg (1,000 unit) capsule 25 mcg PO DAILY budesonide-formoterol [Symbicort] 80-4.5 mcg/actuation HFA aerosol inhaler 2 inh inhalation Q12H sennosides [senna] 8.6 mg tablet 8.6 mg PO .QHS PRN (Reason: constipation) albuterol sulfate 2.5 mg /3 mL (0.083 %) solution for nebulization 2.5 mg inhalation Q6H PRN (Reason: shortness of breath or wheezing) acetaminophen 500 mg tablet 500 mg PO Q8H PRN (Reason: fever or pain) Activity: resume usual activities as tolerated Diet: advance to your usual diet Print Language: Maori Forms: Portal Instructions Discharge location: Home with Home health
[2025-04-26 07:55] VITALS: BP 100/0; PULSE 74; TEMP 36.7; O2SAT 94
[2025-04-26] MEDS: POTASSIUM CHLORIDE 10 MEQ ER TABLET PO (09:52)
[2025-04-26] MEDS: TAMSULOSIN HCL 0.4 MG CAPSULE PO (09:52)
[2025-04-26] MEDS: FERROUS SULFATE 325 MG TABLET PO (09:52)
[2025-04-26] MEDS: ASPIRIN 81 MG TABLET.DR PO (09:52)
[2025-04-26] MEDS: CELECOXIB 100 MG CAPSULE PO (09:52)
[2025-04-26] MEDS: MAGNESIUM OXIDE 400 MG TABLET PO (09:52)
[2025-04-26] MEDS: JUVEN PACKET 1 PACKET PO (09:52)
[2025-04-26] MEDS: ENSURE ORIGINAL 237 ML BOTTLE PO (09:52)
[2025-04-26] MEDS: SERTRALINE HCL 50 MG TABLET PO (09:52)
[2025-04-26] MEDS: ZINC GLUCONATE 50 MG TABLET PO (09:52)
[2025-04-26] MEDS: TIZANIDINE HCL 4 MG TABLET PO (09:52)
[2025-04-26] MEDS: PANTOPRAZOLE SODIUM 40 MG TABLET.DR PO (09:52)
[2025-04-26] MEDS: MULTIVITAMIN TABLET 1 TAB PO (09:52)
[2025-04-26] MEDS: ROPINIROLE HCL 1 MG TABLET PO (09:55)
[2025-04-26] MEDS: FUROSEMIDE 40 MG TABLET PO (09:58)
[2025-04-26] MEDS: BUDESONIDE 0.5 MG/2 ML AMPULE NEB IH (11:11)
[2025-04-26 11:12] VITALS: PULSE 63; O2SAT 93
[2025-04-26 12:00] VITALS: BP 97/63; PULSE 83; TEMP 36.4; O2SAT 95
[2025-04-26] MEDS: PROSTAT 15 GM PROTEIN/100 CAL 30 ML LIQUID PACKET PO (12:47)
[2025-04-26] MEDS: CIPROFLOXACIN HCL 500 MG TABLET PO (12:47)
--- NOTE | 2025-04-26 14:29 | PC.NURSE ---
Removed kim catheter intact washed up patient and bed bathed him. Applied lotion to body and powder to petey area.
--- NOTE | 2025-04-27 08:19 | SWNOTE1 ---
04/25/25 - ADILIA received a call from Floresita at [facility] and insurance is requesting peer to peer. ADILIA reached out to Dr. Holland and provided her with peer to peer information. Dr. Holland attempted to call and it is saying the insurance is closed. ADILIA called pt's daughter and explained to her the situation. SW explained that pt is near his baseline, possibly at his baseline and we would see how pt does with therapy on Sunday and it would be possible pt would discharge Thursday 04/26 if medically stable. Daughter in agreement. ADILIA updated Dr. Holland and nursing. 04/26/25. ADILIA spoke to Dr. Holland and pt is ready for discharge and at baseline. ADILIA called daughter and left message. SW let nursing know and let them know to set up transport. Nursing reached back out and transport set for 1:45. ADILIA called and spoke to daughter and she will have someone at the house at 2:00. [facility]
--- NOTE | 2025-04-27 10:18 | SWNOTE1 ---
ADILIA faxed dc med rec, CRF, physician notes, and PT/OT notes to [facility].
--- NOTE | 2025-04-27 14:07 | CM.NOTE ---
Dr. Holland given final urine culture results.
--- NOTE | 2025-04-27 14:21 | CM.DCFOLLOWU ---
Person spoke with: Santa How are you feeling? He is doing much better How is your pain? No pain Did you understand your discharge instructions? Yes Do you have any questions about your discharge instructions? No Were you given any prescriptions at discharge? Yes Were you able to get your prescriptions filled? Yes Do you understand how to take your medications as ordered? Yes Do you have any questions about your follow up appointment and do you plan to keep your follow up appointment? He has not scheduled appt yet. Encouraged santa to have pt schedule appt for f/u. Is there anything else that you would like to discuss? No Questions/Comments/Concerns/Other:
== END 2025-04-26 14:10 | disposition home health service (06) ==
LOC: ER 17:34 → MS 18:41
PROVIDERS: Family Medicine; Admitting Provider Family Medicine; Emergency Provider Emergency Medicine; PCP Physician Assistant; Visit Provider Family Medicine
DX: A41.9 Sepsis, unspecified organism (principal); R53.1 Weakness; N30.00 Acute cystitis without hematuria; Z66 Do not resuscitate; F03.90 Unspecified dementia, unspecified severity, without behavioral disturbance, psychotic disturbance, mood disturbance, and anxiety; I25.10 Atherosclerotic heart disease of native coronary artery without angina pectoris; R06.03 Acute respiratory distress; E87.6 Hypokalemia; I87.2 Venous insufficiency (chronic) (peripheral); L89.621 Pressure ulcer of left heel, stage 1; L89.611 Pressure ulcer of right heel, stage 1; L60.2 Onychogryphosis; L89.101 Pressure ulcer of unspecified part of back, stage 1; L89.153 Pressure ulcer of sacral region, stage 3; F03.C0 Unspecified dementia, severe, without behavioral disturbance, psychotic disturbance, mood disturbance, and anxiety; J44.9 Chronic obstructive pulmonary disease, unspecified; B96.5 Pseudomonas (aeruginosa) (mallei) (pseudomallei) as the cause of diseases classified elsewhere; R05.3 Chronic cough
CPT/HCPCS: 36415; 51702; 71045; 80048; 80076; 81001; 83605; 84484; 85025; 87040; 87070; 87086; 87088; 87186; 87205; 87811; 92610; 93005; 94640; 94761; 96361; 96365; 96366; 96367; 97110; 97161; 97165; 97530; 97535; 99285; G0378; J0696; J0744

== ENCOUNTER 2025-06-05 10:48 | Emergency (ER) | payer MEDICARE, SELFPAY ==
[2025-06-05 10:51] VITALS: BP 143/88; PULSE 101; TEMP 36.6; O2SAT 98; BMI 24.4
--- NOTE | 2025-06-05 11:02 | ED.GENADUL1 ---
HPI HPI - General Adult General Chief complaint: Urogenital-Male Stated complaint: URINARY ISSUES Time Seen by Provider: 06/05/25 10:55 Source: patient Mode of arrival: ambulance Limitations: other Limitations comment: dementia History of Present Illness HPI narrative: 84-year-old male presents to the emergency department for possible UTI. He is not able to provide any history. He was apparently sent in by home health care and is reportedly going to go into hospice in a few days. Home health care nurse thought he needed a Gomez catheter. He has a presacral wound. The patient is unable to provide any history. Related Data Home Medications ?Medication ?Instructions ?Recorded ?Confirmed acetaminophen 500 mg tablet 500 mg PO Q8H PRN fever or pain 04/23/25 04/23/25 albuterol sulfate 2.5 mg/3 mL 2.5 mg inhalation Q6H PRN 04/23/25 04/23/25 (0.083 %) solution for nebulization shortness of breath or wheezing aspirin 81 mg tablet,delayed 81 mg PO .qd 04/23/25 04/23/25 release atorvastatin 20 mg tablet 20 mg PO QPM 04/23/25 04/23/25 budesonide-formoterol HFA 80 2 inh inhalation Q12H 04/23/25 04/23/25 mcg-4.5 mcg/actuation aerosol inhaler (Symbicort) calcium 600 mg (as 1 tab PO .amhs 04/23/25 04/23/25 carbonate)-vitamin D3 10 mcg (400 unit) tablet celecoxib 100 mg capsule 100 mg PO .qd 04/23/25 04/23/25 cholecalciferol (vitamin D3) 25 25 mcg PO DAILY 04/23/25 04/23/25 mcg (1,000 unit) capsule docusate sodium 100 mg capsule 200 mg PO BID PRN constipation 04/23/25 04/23/25 donepezil 5 mg tablet 5 mg PO .QHS 04/23/25 04/23/25 ferrous sulfate 325 mg (65 mg 325 mg PO .qd 04/23/25 04/23/25 iron) tablet (FeroSul) furosemide 40 mg tablet 40 mg PO .qd 04/23/25 04/23/25 gabapentin 100 mg capsule 100 mg PO TID 04/23/25 04/23/25 magnesium oxide 400 mg (241.3 mg 400 mg PO BIDWM 04/23/25 04/23/25 magnesium) tablet multivitamin 1 tab PO DAILY 04/23/25 04/23/25 pantoprazole 40 mg tablet,delayed 40 mg PO BID 04/23/25 04/23/25 release ropinirole 1 mg tablet 1 mg PO BID 04/23/25 04/23/25 sennosides 8.6 mg tablet (senna) 8.6 mg PO .QHS PRN constipation 04/23/25 04/23/25 sertraline 50 mg tablet 50 mg PO DAILY 04/23/25 04/23/25 tamsulosin 0.4 mg capsule 0.4 mg PO DAILY 04/23/25 04/23/25 tizanidine 4 mg tablet 4 mg PO BID 04/23/25 04/23/25 zinc gluconate 50 mg tablet 50 mg PO DAILY 04/23/25 04/23/25 Previous Rx's ?Medication ?Instructions ?Recorded ciprofloxacin HCl 500 mg tablet 500 mg PO Q12H 7 days #14 tabs 04/26/25 cephalexin 500 mg capsule 500 mg PO TID 10 days #30 caps 06/05/25 Allergies Allergy/AdvReac Type Severity Reaction Status Date / Time No Known Drug Allergies Allergy Verified 06/05/25 10:51 Opioid HPI Opioid Management Most Recent Opioid Data: Last Pain Scale 0 04/26/25, 03:44 Last Pain Intensity 0 04/25/25, 09:47 Review of Systems ROS Narrative Not obtainable, age PFSH PFSH Medical History (Updated 06/05/25 @ 12:16 by Rob Crespo MD) Coronary artery disease ?I25.10 - Atherosclerotic heart disease of [place] coronary artery without angina pectoris (ICD-10) Dementia ?F03.90 - Unspecified dementia, unspecified severity, without behavioral disturbance, psychotic disturbance, mood disturbance, and anxiety (ICD-10) Generalized weakness ?R53.1 - Weakness (ICD-10) Occasional tremors ?R25.1 - Tremor, unspecified (ICD-10) Dementia ?F03.90 - Unspecified dementia, unspecified severity, without behavioral disturbance, psychotic disturbance, mood disturbance, and anxiety (ICD-10) Dyspnea ?R06.00 - Dyspnea, unspecified (ICD-10) Prolonged QT interval syndrome ?I45.81 - Long QT syndrome (ICD-10) Hypertensive heart disease with heart failure ?I11.0 - Hypertensive heart disease with heart failure (ICD-10) COPD (chronic obstructive pulmonary disease) ?J44.9 - Chronic obstructive pulmonary disease, unspecified (ICD-10) Surgical History (Updated 04/23/25 @ 10:26 by Leyla Matthews RN) H/O hernia repair ?Z98.890 - Other specified postprocedural states (ICD-10) ?Z87.19 - Personal history of other diseases of the digestive system (ICD-10) Social History Little interest or pleasure in doing things: not at all Feeling down, depressed, or hopeless: not at all Gender Identity: male Exam Narrative Exam Narrative: Nurses note and vital signs reviewed and patient is not hypoxic. General: The patient appears well and in no apparent distress. Patient is resting comfortably on cart. Skin: Warm, dry, no pallor noted. There is no rash noted. In the presacral area there is some mild erythema with very minimal excoriation. Head: Normocephalic, atraumatic Eye: Normal conjunctiva, no drainage Ears, Nose, Mouth, and Throat: oral mucosa is moist. Nares patent. Cardiovascular: Regular Rate and Rhythm Respiratory: Patient is in no distress, no accessory muscle use, lungs are clear to auscultation, no wheezing, rales or rhonchi Back: non-tender GI: Soft and nontender Musculoskeletal: The patient has no evidence of calf tenderness, no pitting edema, symmetrical pulses noted bilaterally Neurological: He is awake and alert. He knows his name and where he is. He does not know the year or why he is here. Psychiatric: Cooperative Constitutional Vital Signs, click to edit/add: Last Vital Signs Temp 98 F 06/05/25 10:51 Pulse 101 H 06/05/25 10:51 Resp 14 06/05/25 10:51 BP 143/88 H 06/05/25 10:51 Pulse Ox 98 06/05/25 10:51 O2 Del Method Nasal Cannula 06/05/25 10:51 O2 Flow Rate 2 06/05/25 10:51 Course Vital Signs Vital signs: Vital Signs Temperature 98 F 06/05/25 10:51 Pulse Rate 101 H 06/05/25 10:51 Respiratory Rate 14 06/05/25 10:51 Blood Pressure 143/88 H 06/05/25 10:51 Pulse Oximetry 98 06/05/25 10:51 Oxygen Delivery Method Nasal Cannula 06/05/25 10:51 Oxygen Delivery Flow Rate 2 06/05/25 10:51 Temperature 98 F 06/05/25 10:51 Pulse Rate 101 H 06/05/25 10:51 Respiratory Rate 14 06/05/25 10:51 Blood Pressure 143/88 H 06/05/25 10:51 Pulse Oximetry 98 06/05/25 10:51 Oxygen Delivery Method Nasal Cannula 06/05/25 10:51 Oxygen Delivery Flow Rate 2 06/05/25 10:51 Medical Decision Making MDM Narrative Medical decision making narrative: UTI is identified. Home care nurses were requesting Gomez catheter be placed and this has been accomplished. He was given IV Rocephin and prescribed Keflex. The patient is to be going into hospice in 3 days. Differential Diagnosis Differential Diagnosis: UTI, dehydration Lab Data Lab results reviewed: Yes I reviewed the patient's lab results Labs: Lab Results 06/05/25 06/05/25 Range/Units 11:25 11:40 WBC 12.8 H (4.0-11.0) 10^3/uL RBC 4.60 L (4.70-6.10) 10^6/uL Hgb 13.5 L (14.0-18.0) g/dL Hct 42.2 (42.0-54.0) % MCV 91.7 (80.0-94.0) fL MCH 29.3 (25.9-34.0) pg MCHC 32.0 (29.9-35.2) g/dL RDW 17.6 H (11.0-15.0) % Plt Count 512 H (150-450) 10^3/uL MPV 10.4 (9.5-13.5) fL Neut % (Auto) 72.8 (43.0-75.0) % Lymph % (Auto) 17.9 L (20.5-60.0) % [place] % (Auto) 8.2 (1.7-12.0) % Eos % (Auto) 0.2 L (0.9-7.0) % Baso % (Auto) 0.5 (0.2-2.0) % Neut # (Auto) 9.3 H (1.4-6.5) 10^3/uL Lymph # (Auto) 2.3 (1.2-3.8) 10^3/uL [place] # (Auto) 1.1 H (0.3-0.8) 10^3/uL Eos # (Auto) 0.0 (0.0-0.7) 10^3/uL Baso # (Auto) 0.1 (0.0-0.1) 10^3/uL Abs Immat Gran (auto) 0.05 H (0.00-0.03) 10^3/uL Imm/Tot Granulo (auto) 0.4 (0.0-0.5) % Sodium 142 (136-145) mmol/L Potassium 4.3 (3.5-5.1) mmol/L Chloride 103 (98-107) mmol/L Carbon Dioxide 31.7 (21.0-32.0) mmol/L Anion Gap 11.6 BUN 13.0 (7.0-18.0) mg/dL Creatinine 0.74 (0.70-1.30) mg/dL Est GFR ( Amer) >60 (>=60 mL/min/1.73m^2) Est GFR (Non-Af Amer) >60 (>=60 mL/min/1.73m^2) BUN/Creatinine Ratio 17.6 Glucose 151 H (74-106) mg/dL Calcium 9.9 (8.5-10.1) mg/dL Urine Color Dk yellow (YELLOW) Urine Clarity Cloudy A (CLEAR) Urine pH 6.0 (5.0-9.0) Ur Specific [place] 1.020 (1.005-1.025) Urine Protein 30 A (NEG/TRACE) mg/dL Urine Glucose (UA) Negative (NEGATIVE) mg/dL Urine Ketones Trace A (NEGATIVE) mg/dL Urine Occult Blood Large A (NEGATIVE) Urine Nitrite Positive A (NEGATIVE) Urine Bilirubin Negative (NEGATIVE) Urine Urobilinogen 1.0 (0.2-1.0) EU/dL Ur Leukocyte Esterase Large A (NEGATIVE) Urine RBC 10-20 A (0-2) #/HPF Urine WBC >100 A (NONE SEEN) #/HPF Ur Squamous Epith Cells Few A (NONE/RARE) #/LPF Urine Crystals None seen (None Seen) #/HPF Urine Bacteria Large A (NONE SEEN) #/HPF Urine Casts None seen (NONE SEEN) #/LPF Urine Mucus Trace A (NONE SEEN) Ur Culture Indicated[place] [place] Discharge Chief Complaint: Urogenital-Male Clinical Impression: Urinary tract infection Qualifiers: Urinary tract infection type: acute cystitis Hematuria presence: without hematuria Qualified Code(s): N30.00 - Acute cystitis without hematuria Patient Disposition: Home, Self-Care Time of Disposition Decision: 12:16 Condition: Good Mode of Transportation: Private Vehicle Prescriptions / Home Meds: New cephalexin 500 mg capsule 500 mg PO TID 10 Days Qty: 30 0RF No Action aspirin 81 mg tablet,delayed release (DR/EC) 81 mg PO .qd calcium carbonate-vitamin D3 600 mg-10 mcg (400 unit) tablet 1 tab PO .amhs celecoxib 100 mg capsule 100 mg PO .qd ferrous sulfate [FeroSul] 325 mg (65 mg iron) tablet 325 mg PO .qd furosemide 40 mg tablet 40 mg PO .qd gabapentin 100 mg capsule 100 mg PO TID magnesium oxide 400 mg (241.3 mg magnesium) tablet 400 mg PO BIDWM atorvastatin 20 mg tablet 20 mg PO QPM multivitamin Tablet 1 tab PO DAILY ropinirole 1 mg tablet 1 mg PO BID donepezil 5 mg tablet 5 mg PO .QHS tizanidine 4 mg tablet 4 mg PO BID tamsulosin 0.4 mg capsule 0.4 mg PO DAILY pantoprazole 40 mg tablet,delayed release (DR/EC) 40 mg PO BID docusate sodium 100 mg capsule 200 mg PO BID PRN (Reason: constipation) zinc gluconate 50 mg tablet 50 mg PO DAILY sertraline 50 mg tablet 50 mg PO DAILY cholecalciferol (vitamin D3) 25 mcg (1,000 unit) capsule 25 mcg PO DAILY budesonide-formoterol [Symbicort] 80-4.5 mcg/actuation HFA aerosol inhaler 2 inh inhalation Q12H sennosides [senna] 8.6 mg tablet 8.6 mg PO .QHS PRN (Reason: constipation) albuterol sulfate 2.5 mg /3 mL (0.083 %) solution for nebulization 2.5 mg inhalation Q6H PRN (Reason: shortness of breath or wheezing) acetaminophen 500 mg tablet 500 mg PO Q8H PRN (Reason: fever or pain) ciprofloxacin HCl 500 mg tablet 500 mg PO Q12H 7 Days Qty: 14 0RF Print Language: Albanian Instructions: Urinary Tract Infection in Men (ED), How to Change a Catheter Drainage Bag (DC) Referrals: Physician,Non-Staff, [Physician] - 1 week
[2025-06-05 11:35] LABS: Hematocrit 42.2 % (42.0-54.0); Hemoglobin 13.5 g/dL (14.0-18.0); Immature Granulocytes Abs Auto 0.05 10^3/uL (0.00-0.03); Immature Granulocytes Pct Auto 0.4 % (0.0-0.5); Lymphocytes Absolute Auto 2.3 10^3/uL (1.2-3.8); Mean Corpuscular HGB Conc 32.0 g/dL (29.9-35.2); Mean Corpuscular Hemoglobin 29.3 pg (25.9-34.0); Mean Corpuscular Volume 91.7 fL (80.0-94.0); Platelet Count 512 10^3/uL (150-450); Red Blood Count 4.60 10^6/uL (4.70-6.10); White Blood Count 12.8 10^3/uL (4.0-11.0)
[2025-06-05 11:43] LABS: Anion Gap 11.6; Blood Urea Nitrogen 13.0 mg/dL (7.0-18.0); Calcium 9.9 mg/dL (8.5-10.1); Carbon Dioxide 31.7 mmol/L (21.0-32.0); Chloride 103 mmol/L (98-107); Estimated GFR (African America >60 (>=60 mL/min/1.73m^2); Estimated GFR (Non-African Ame >60 (>=60 mL/min/1.73m^2); Glucose 151 mg/dL (74-106); Potassium 4.3 mmol/L (3.5-5.1); Sodium 142 mmol/L (136-145)
[2025-06-05 11:48] LABS: Glucose Urine UA NEGATIVE (NEGATIVE)
[2025-06-05 12:21] LABS: Cast Seen? NONE SEEN #/LPF (NONE SEEN); Crystals Seen? None Seen #/HPF (None Seen); Urine Culture Indicated YES-FRMC
[2025-06-05 15:05] VITALS: BP 138/83; PULSE 77; O2SAT 98
== END 2025-06-05 15:06 | disposition home or self-care (01) ==
PROVIDERS: Emergency Provider Emergency Medicine; PCP Family Medicine
DX: N30.00 Acute cystitis without hematuria (principal)
CPT/HCPCS: 36415; 51702; 80048; 81001; 85025; 87086; 87088; 87186; 96365; 99285; J0696